=== PATIENT | male | born 1965 | race Caucasian/White ===

== ENCOUNTER 2024-01-05 14:34 | Outpatient (REF) | payer OTHER, SELFPAY ==
[2024-01-05 17:23] LABS: MANUAL DIFF FLAG NO
[2024-01-05 17:28] LABS: Basophils Absolute Auto 0.1 X10*3/uL (0.0-0.2); Basophils Percent Auto 1.2 % (0-2); Eosinophils Absolute Auto 0.1 X10*3/uL (0.0-0.4); Eosinophils Percent Auto 0.9 % (0-4); Hematocrit 48.6 % (42.0-52.0); Hemoglobin 16.5 g/dl (14.0-18.0); Imm Gran Pct Auto 1.1 % (0.0-0.4); Lymphocytes Absolute Auto 2.4 X10*3/uL (1.2-4.9); Lymphocytes Percent Auto 27.2 % (20-40); Mean Corpuscular Hemoglobin 29.9 pg (27.0-33.0); Mean Corpuscular Volume 88.2 fL (80.0-98.0); Mean Platelet Volume 8.1 fL (9.4-12.4); Monocytes Absolute Auto 0.7 X10*3/uL (0.1-1.2); Monocytes Percent Auto 7.5 % (2-11); Neutrophils Absolute Auto 5.5 x10*3/uL (2.0-8.3); Neutrophils Percent Auto 62.1 % (45-73); Platelet Count 509 X10*3/uL (160-400); Red Blood Count 5.51 X10*6/uL (4.60-5.80); Red Cell Distribution Width 14.4 % (11.0-16.0); White Blood Count 8.8 X10*3/uL (4.8-10.8)
[2024-01-05 17:46] LABS: Alanine Aminotransferase 29 U/L (0-40); Albumin Level 3.7 g/dL (3.5-5.0); Alkaline Phosphatase 116 U/L (39-117); Anion Gap 16 (12-20); Aspartate Amino Transferase 24 U/L (5-37); Bilirubin Total 0.4 mg/dL (0.0-1.0); Blood Urea Nitrogen 7 mg/dL (9-16); C Reactive Protein 5.43 mg/dL (< or = 0.50); Carbon Dioxide 26 mmol/L (22-29); Chloride 98 mmol/L (96-108); Cholesterol 139 mg/dL (<200); Estimated Glomerular Filt Rate > 60; Glucose Random 106 mg/dL (60-115); HDL Cholesterol 39 mg/dL (>40); LDL Cholesterol Calculated 83 mg/dL (<100); Potassium 4.5 mmol/L (3.3-5.1); Sodium 135 mmol/L (135-145); Total Protein 8.3 g/dL (6.5-8.0); Triglycerides 85 mg/dL (<150)
[2024-01-05 17:53] LABS: B Type Natriuretic Peptide 48 pg/mL (<100)
[2024-01-05 18:01] LABS: TSH reflex Free T4 3.14 uIU/mL (0.32-4.0)
== END 2024-01-05 14:35 | disposition home or self-care (01) ==
LOC: HO.CHCLDS 14:34
PROVIDERS: Visit Provider Family Medicine
DX: Z13.6 Encounter for screening for cardiovascular disorders (principal); I73.9 Peripheral vascular disease, unspecified; R06.02 Shortness of breath
CPT/HCPCS: 36415; 80053; 80061; 83880; 84443; 85025; 86140

== ENCOUNTER 2024-01-23 08:45 | Outpatient (AMB) | payer OTHER, SELFPAY ==
--- NOTE | 2024-01-23 09:06 | MHC.OFFVIS ---
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 States he can barely walk 50 ft before cramping. Pt states he can't use stairs without legs getting heavy and cramping. States he had arterial US testing at [facility] in June 2023. He had appt set up at [facility] in September but had change of insurance. 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 He had actually been set up with outside vascular surgeons and due to insurance issues was unable to follow-up. He has changed his primary care team and now presents to us for vascular evaluation. Upon discussion with him he does complain of some left lateral leg numbness. He is barely able to walk about 100 ft. He complains about pain left more so than right. 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 Upon further discussion with him he smokes about 2 packs per day. He also reports a prior MO back in 2018. He had most recently seen his primary care team which started him on an aspirin. He now presents for vascular evaluation. [facility] Medical History (Updated 01/23/24 @ 10:10 by Everton Sierra MD) Heart attack (~2018) Social History (Updated 01/23/24 @ 09:19 by RADHA Kingsley) Patient Tobacco Use Status: Current everyday Tobacco user Cigarette Packs Per Day: 2 Review of Systems Const All systems reviewed & are unremarkable except as noted in HPI and below Reports no additional complaints ENT Reports Normal hearing present Card Denies chest pain, Denies chest pain at rest, Denies chest pain with activity and Denies pedal edema Resp Denies cough GI Denies abdominal pain Musc Denies abnormal gait, Denies muscle cramps and Denies radiating pain into limb Skin/Breast Denies skin ulcer and Denies wounds Neuro Reports Normal hearing present and Denies abnormal gait Psych Reports no additional complaints Physical Exam Vital Signs: BMI result Body Mass Index 21.4 Const General: cooperative, healthy appearing and comfortable Orientation/consciousness: oriented to person, oriented to place and oriented to time HEENT Head: Yes normal to inspection Neck Neck: Yes normal visual inspection Carotids: no bruits Chest Chest palpation & inspection: normal inspection of the chest Resp Effort & Inspection: normal respiratory effort and able to speak in complete sentences Auscultation: clear to auscultation bilaterally, no crackles, no rales, no rhonchi and no wheezes Cardio Other: Right palpable DP, left DP signal Rate: regular rate Rhythm: regular rhythm Heart sounds: S1 normal heart sound present and S2 normal heart sound present Bruits: no carotid bruits GI Inspection: Yes normal to inspection Skin Wounds: no wounds Hair: normal Neuro General: oriented to person, oriented to place and oriented to time Cranial nerves: Yes CN's II-XII intact bilaterally and Yes Normal hearing present Cognition (Neuro): normal cognition Motor exam (neuro): 5/5 motor strength present throughout Extrem Other: venous exam: No significant superficial varicosities or spider telangiectasias, minimal edema General: No clubbing, No cyanosis and No edema Psych Appearance: grossly normal Mental Status: mental status grossly normal Speech and movement: Normal speech and movement present Assessment & Plan Assessment & Plan (1) PAD (peripheral artery disease): Code(s): I73.9 - Peripheral vascular disease, unspecified Category: Medical Plan: In short patient has severe activity limiting claudication. I did review the pathophysiology of peripheral vascular disease with the patient. In addition we did discuss routine conservative measures including a healthy diet and the importance of exercise and ambulation. We did discuss risk factor modification. He has been started on an aspirin already. I do recommend the addition of a high-dose statin with routine follow-up of LFTs and renal function. We will schedule him for noninvasive arterial testing as soon as possible.. Thank you for allowing us to participate in this patient's care. If there are any questions or concerns please do not hesitate to contact us. Orders: Orders US arterial duplex LE BI 1 Week I73.9 - Peripheral vascular disease, unspecified Coding Level of Care Code New Pt Level 4 (91771) Complex EM visit Add On G2211 Diagnoses PAD (peripheral artery disease) I73.9
[2024-01-23 09:20] VITALS: BMI 21.4
== END 2024-01-23 09:36 | disposition home or self-care (01) ==
LOC: HO.HVS 08:46
PROVIDERS: Visit Provider Surgery Vascular Surgery
DX: I73.9 Peripheral vascular disease, unspecified (principal)
CPT/HCPCS: 99204

== ENCOUNTER → 2024-01-23 08:45 | Outpatient (BNVA) | payer OTHER, SELFPAY | PROVIDERS: Visit Provider Surgery Vascular Surgery ==

== ENCOUNTER 2024-01-25 14:11 | Outpatient (REF) | payer OTHER, SELFPAY ==
--- NOTE | ~2024-01-25 | US_ITS ---
EXAMINATION: Noninvasive assessment of the bilateral lower extremities with ARTERIAL DUPLEX and ANKLE BRACHIAL INDICES (ABIs). US DOPPLER AORTA CLINICAL INFORMATION: Peripheral vascular disease TECHNIQUE: Duplex Doppler techniques with waveform analysis and measurement of velocities in the bilateral common femoral, profunda femoris, superficial femoral, popliteal and tibial arteries were performed. Additionally, ankle pulse volume recordings, ankle pressure measurements and ankle brachial indices were obtained of the lower extremity arterial system bilaterally. The study was performed only at rest. Ultrasound along with color Doppler imaging and spectral analysis was performed of the aorta and bilateral iliac arteries COMPARISON: None FINDINGS: AORTA: Aorta is normal in caliber with diffuse atherosclerotic wall calcifications. The measurements of the aorta in maximum AP dimensions respectively are as follows: Proximal: 2.4 cm. 90.3 cm/s, biphasic Mid: 2.2 cm. 81.9 cm/s, biphasic Distal: 1.7 cm. 25.1 cm/s, monophasic The measurements of the peak systolic velocities of the common iliac and external iliac arteries are as follows: Right Common Iliac Artery: 126 cm/s, triphasic. Right External Iliac Artery: 150 cm/s, triphasic Left Common Iliac Artery: 72 cm/s at the proximal segment with occlusion through the mid and distal segments . Left External Iliac Artery: Occluded with reconstituted flow in the distal most segment DIRECT DUPLEX DOPPLER FINDINGS: RIGHT LEG: Common femoral artery: 82.4 cm/s, phasicity: Biphasic. Mild calcified plaque Profunda femoris artery: 60.3 cm/s, phasicity: Biphasic Superficial femoral artery (proximal): 59.0 cm/s, phasicity: Biphasic Superficial femoral artery (mid): 64.0 cm/s, phasicity: Biphasic Superficial femoral artery (distal): 58.4 cm/s, phasicity: Triphasic Popliteal artery: 62.5 cm/s, phasicity: Triphasic Posterior tibial artery: 53.2 cm/s, phasicity: Triphasic Peroneal artery: 44.5 cm/s, phasicity: Monophasic Anterior tibial artery: 29.5 cm/s, phasicity: Biphasic Dorsalis pedis artery: 27.1 cm/s, phasicity:Monophasic LEFT LEG: Common femoral artery: 23.7 cm/s, phasicity: Monophasic Profunda femoris artery: 21.4 cm/s, phasicity: Monophasic Superficial femoral artery (proximal): 29.3 cm/s, phasicity: Monophasic Superficial femoral artery (mid): 16.2 cm/s, phasicity: Monophasic Superficial femoral artery (distal): 13.9 cm/s, phasicity: Monophasic Popliteal artery: 19.6 cm/s, phasicity: Monophasic Posterior tibial artery: 13.0 cm/s, phasicity: Monophasic Peroneal artery: 4.6 cm/s, phasicity: Monophasic Anterior tibial artery: 3.9 cm/s, phasicity: Monophasic Dorsalis pedis artery: 7.4 cm/s, phasicity: Monophasic ANKLE-BRACHIAL INDEX: Right: 0.9 Left: 0.32 ANKLE PRESSURES: Right: PT 141, DP 129 Left: PT 49, DP 51 ANKLE PVR WAVEFORMS: Right: Abnormal Left: Abnormal US/US abdominal aortic aneurysm IMPRESSION: 1. Aorta is normal in caliber with diffuse atherosclerotic wall calcifications. 2. Right lower extremity demonstrates no significant stenosis or occlusion. 3. Left lower extremity demonstrates occlusion of the left common iliac and external iliac arteries with reconstituted flow in the distal external iliac artery. There is severe peripheral vascular disease with monophasic waveforms throughout the left lower extremity. Electronically signed by: Rafael Jesus MD 01/26/2024 08:43 AM [facility] [place]
--- NOTE | ~2024-01-25 | US_ITS ---
EXAMINATION: Noninvasive assessment of the bilateral lower extremities with ARTERIAL DUPLEX and ANKLE BRACHIAL INDICES (ABIs). US DOPPLER AORTA CLINICAL INFORMATION: Peripheral vascular disease TECHNIQUE: Duplex Doppler techniques with waveform analysis and measurement of velocities in the bilateral common femoral, profunda femoris, superficial femoral, popliteal and tibial arteries were performed. Additionally, ankle pulse volume recordings, ankle pressure measurements and ankle brachial indices were obtained of the lower extremity arterial system bilaterally. The study was performed only at rest. Ultrasound along with color Doppler imaging and spectral analysis was performed of the aorta and bilateral iliac arteries COMPARISON: None FINDINGS: AORTA: Aorta is normal in caliber with diffuse atherosclerotic wall calcifications. The measurements of the aorta in maximum AP dimensions respectively are as follows: Proximal: 2.4 cm. 90.3 cm/s, biphasic Mid: 2.2 cm. 81.9 cm/s, biphasic Distal: 1.7 cm. 25.1 cm/s, monophasic The measurements of the peak systolic velocities of the common iliac and external iliac arteries are as follows: Right Common Iliac Artery: 126 cm/s, triphasic. Right External Iliac Artery: 150 cm/s, triphasic Left Common Iliac Artery: 72 cm/s at the proximal segment with occlusion through the mid and distal segments . Left External Iliac Artery: Occluded with reconstituted flow in the distal most segment DIRECT DUPLEX DOPPLER FINDINGS: RIGHT LEG: Common femoral artery: 82.4 cm/s, phasicity: Biphasic. Mild calcified plaque Profunda femoris artery: 60.3 cm/s, phasicity: Biphasic Superficial femoral artery (proximal): 59.0 cm/s, phasicity: Biphasic Superficial femoral artery (mid): 64.0 cm/s, phasicity: Biphasic Superficial femoral artery (distal): 58.4 cm/s, phasicity: Triphasic Popliteal artery: 62.5 cm/s, phasicity: Triphasic Posterior tibial artery: 53.2 cm/s, phasicity: Triphasic Peroneal artery: 44.5 cm/s, phasicity: Monophasic Anterior tibial artery: 29.5 cm/s, phasicity: Biphasic Dorsalis pedis artery: 27.1 cm/s, phasicity:Monophasic LEFT LEG: Common femoral artery: 23.7 cm/s, phasicity: Monophasic Profunda femoris artery: 21.4 cm/s, phasicity: Monophasic Superficial femoral artery (proximal): 29.3 cm/s, phasicity: Monophasic Superficial femoral artery (mid): 16.2 cm/s, phasicity: Monophasic Superficial femoral artery (distal): 13.9 cm/s, phasicity: Monophasic Popliteal artery: 19.6 cm/s, phasicity: Monophasic Posterior tibial artery: 13.0 cm/s, phasicity: Monophasic Peroneal artery: 4.6 cm/s, phasicity: Monophasic Anterior tibial artery: 3.9 cm/s, phasicity: Monophasic Dorsalis pedis artery: 7.4 cm/s, phasicity: Monophasic ANKLE-BRACHIAL INDEX: Right: 0.9 Left: 0.32 ANKLE PRESSURES: Right: PT 141, DP 129 Left: PT 49, DP 51 ANKLE PVR WAVEFORMS: Right: Abnormal Left: Abnormal US/US arterial duplex BI w/ STEPHENIE IMPRESSION: 1. Aorta is normal in caliber with diffuse atherosclerotic wall calcifications. 2. Right lower extremity demonstrates no significant stenosis or occlusion. 3. Left lower extremity demonstrates occlusion of the left common iliac and external iliac arteries with reconstituted flow in the distal external iliac artery. There is severe peripheral vascular disease with monophasic waveforms throughout the left lower extremity. Electronically signed by: Rafael Jesus MD 01/26/2024 08:43 AM [facility] [place]
== END 2024-01-25 14:12 | disposition home or self-care (01) ==
LOC: HO.US 14:11
PROVIDERS: PCP Family Medicine; Visit Provider Surgery Vascular Surgery
DX: I73.9 Peripheral vascular disease, unspecified (principal)
CPT/HCPCS: 76706; 93922; 93925

== ENCOUNTER 2024-01-30 10:04 | Outpatient (AMB) | payer OTHER, SELFPAY ==
[2024-01-30 10:33] VITALS: BMI 21.4
--- NOTE | 2024-01-30 10:33 | A.OFFVIS_ITS ---
Vital Signs 01/30/24 10:33 Height 5 ft 9 in Weight 145 lb BMI 21.4 Intake Visit Reasons: 1 wk follow up Arterial US 01/25/24 Intake Note: 1 wk follow up Arterial US 01/25/24 for Left LE worse than Right LE. Also states that the UE has some numbness. Accompanied by: Self / Same As Patient Allergies codeine Adverse Reaction (Mild, Verified 01/30/24 10:34) Vomiting bees Allergy (Intermediate, Uncoded 01/30/24 10:34) Anaphylaxis HPI HPI 1 wk follow up Arterial US 01/25/24: Details: Very pleasant 58-year-old gentleman presents for follow-up regarding noninvasive arterial testing. He has significant activity limiting claudication on the left lower extremity. He can barely walk 100 ft. He reports that the left leg seems to be this biggest source of issues. He now presents for follow-up with noninvasive testing. [facility] Medical History Heart attack (~2018) Social History Patient Tobacco Use Status: Current everyday Tobacco user Cigarette Packs Per Day: 2 Review of Systems Const All systems reviewed & are unremarkable except as noted in HPI and below Reports no additional complaints ENT Reports Normal hearing present Card Denies chest pain, Denies chest pain at rest, Denies chest pain with activity and Denies pedal edema Resp Denies cough GI Denies abdominal pain Musc Denies abnormal gait, Denies muscle cramps and Denies radiating pain into limb Skin/Breast Denies skin ulcer and Denies wounds Neuro Reports Normal hearing present and Denies abnormal gait Psych Reports no additional complaints Physical Exam Vital Signs: BMI result Body Mass Index 21.4 Const General: cooperative, healthy appearing and comfortable Orientation/consciousness: oriented to person, oriented to place and oriented to time HEENT Head: Yes normal to inspection Neck Neck: Yes normal visual inspection Carotids: no bruits Chest Chest palpation & inspection: normal inspection of the chest Resp Effort & Inspection: normal respiratory effort and able to speak in complete sentences Auscultation: clear to auscultation bilaterally, no crackles, no rales, no rhonchi and no wheezes Cardio Other: Bilateral DP signals Rate: regular rate Rhythm: regular rhythm Heart sounds: S1 normal heart sound present and S2 normal heart sound present Bruits: no carotid bruits Peripheral pulses: Peripheral pulses 2+ throughout GI Inspection: Yes normal to inspection Skin Wounds: no wounds Hair: normal Neuro General: oriented to person, oriented to place and oriented to time Cranial nerves: Yes CN's II-XII intact bilaterally and Yes Normal hearing present Cognition (Neuro): normal cognition Motor exam (neuro): 5/5 motor strength present throughout Extrem Other: venous exam: No significant superficial varicosities or spider telangiectasias, minimal edema General: No clubbing, No cyanosis and No edema Psych Appearance: grossly normal Mental Status: mental status grossly normal Speech and movement: Normal speech and movement present Results Reviewed Results Reviewed: Noninvasive testing dated 01/25/2024 demonstrates monophasic waveforms down the l eft leg with an STEPHENIE of 0.32. Assessment & Plan Assessment & Plan (1) PAD (peripheral artery disease): Code(s): I73.9 - Peripheral vascular disease, unspecified Category: Medical Plan: Patient notes leg pain when walking distances. I have discussed the pathophysiology of peripheral vascular disease with the patient. I have also discussed risk factor modification. I have reviewed the patient's arterial testing which reveals left leg STEPHENIE of 0.32. the patient would benefit from a left leg endovascular peripheral angiogram with possible angioplasty, stent, and/or atherectomy. This has been discussed in detail with the patient along with risks, benefits, and complications. This includes but is not limited to bleeding, infection, heart attack, need for emergent surgical repair, limb ischemia, blood vessel damage, bleeding, puncture, kidney injury, bruising, allergic reaction, and skin reaction. The patient demonstrates a clear understanding. We will schedule for the next appropriate time. Thank you for allowing us to assist in this patient's care. Coding Level of Care Code Est Pt Level 4 (19680) Complex EM visit Add On G2211 Diagnoses PAD (peripheral artery disease) I73.9
== END 2024-01-30 11:01 | disposition home or self-care (01) ==
PROVIDERS: Visit Provider Surgery Vascular Surgery
DX: I73.9 Peripheral vascular disease, unspecified (principal)
CPT/HCPCS: 99214

== ENCOUNTER → 2024-01-30 10:04 | Outpatient (BNVA) | payer OTHER, SELFPAY | PROVIDERS: Visit Provider Surgery Vascular Surgery ==

== ENCOUNTER 2024-02-07 07:21 | Day surgery (SDC) | payer OTHER, SELFPAY ==
[2024-02-07] VITALS (18 sets, daily range): BP systolic 116–147; BP diastolic 73–98; PULSE 76–106; RESP 16–20; TEMP 36.1; O2SAT 96–100; BMI 20.5
[2024-02-07] MEDS: 0.9 % Sodium Chloride 1,000 ML 100 ML IVCONT (07:57)
[2024-02-07 08:06] LABS: MANUAL DIFF FLAG NO
[2024-02-07 08:15] LABS: Basophils Absolute Auto 0.1 X10*3/uL (0.0-0.2); Basophils Percent Auto 0.8 % (0-2); Eosinophils Absolute Auto 0.1 X10*3/uL (0.0-0.4); Eosinophils Percent Auto 0.9 % (0-4); Hematocrit 48.5 % (42.0-52.0); Hemoglobin 16.3 g/dl (14.0-18.0); Imm Gran Abs Auto 0.08 X10*3/uL (0.00-0.03); Lymphocytes Absolute Auto 1.9 X10*3/uL (1.2-4.9); Mean Corpuscular HGB Conc 33.6 g/dl (31.0-36.0); Mean Corpuscular Hemoglobin 29.4 pg (27.0-33.0); Mean Corpuscular Volume 87.4 fL (80.0-98.0); Mean Platelet Volume 7.9 fL (9.4-12.4); Monocytes Absolute Auto 0.8 X10*3/uL (0.1-1.2); Monocytes Percent Auto 9.8 % (2-11); Neutrophils Absolute Auto 4.8 x10*3/uL (2.0-8.3); Neutrophils Percent Auto 62.5 % (45-73); Platelet Count 363 X10*3/uL (160-400); Red Blood Count 5.55 X10*6/uL (4.60-5.80); Red Cell Distribution Width 13.8 % (11.0-16.0); White Blood Count 7.7 X10*3/uL (4.8-10.8)
[2024-02-07 08:22] LABS: Blood Urea Nitrogen 8 mg/dL (9-16); Creatinine Clr Calc Pharmacy 93.5; Estimated Glomerular Filt Rate > 60
[2024-02-07] MEDS: Midazolam HCl/PF 2 MG/2 ML VIAL 0.5 MG IVPUSH (09:28)
[2024-02-07] MEDS: fentaNYL citrate/PF 100 MCG/2 ML VIAL 25 MCG IVPUSH (09:28)
--- NOTE | 2024-02-07 10:09 | W.PM.OPN ---
Operative Note Operative Note Date of Service: 02/07/24 Narrative: Angiogram report from [facility] Preoperative diagnosis: Atherosclerosis of left lower extremity with rest pain Postoperative diagnosis: Same Procedure: 1. Ultrasound-guided right common femoral access 2. Aortogram with left lower extremity runoff Surgeon:Everton Sierra M.D., FACS, RPVI Cashier Wrapper:None Anesthesia: Local with moderate conscious sedation. Total intraservice moderate sedation time was 16 minutes. I monitored the patient's level of consciousness and physiologic status continuously throughout the procedure. Specimens:none Drains:none Estimated blood loss: Less than 10 ml Implant: None Indications: Pleasant 58-year-old smoker presents for evaluation with left lower extremity severe claudication almost rest pain equivalent. He now presents for endovascular intervention The patient has signed the informed consent after reviewing risks, complications, benefits, and alternatives previously discussed with the patient. The patient was given the opportunity to ask any additional questions or voice any concerns. All questions were answered to the patient's satisfaction. Procedure in detail: Patient was brought to the angiography suite prior to which a time-out was called for patient identification and site verification. Bilateral groins were prepped and draped in the standard surgical fashion. Under ultrasound guidance right common femoral was punctured with micro puncture needle and wire. Subsequently a precision 5 [place] sheath was then placed. [employer] wire was advanced to the level of the aorta. 5 [place] Flush catheter was brought up and parked at the level of the renal arteries. Aortogram was then undertaken. Catheter was brought down to the level of the iliac bifurcation. Iliacs were subsequently imaged. We had placed the catheter at the iliac bifurcation. There was a complete occlusion of the left lower extremity in the iliacs so we were unable to traverse the contra side. We did do left lower extremity runoff through the iliac bifurcation. At this time we were unable to intervene. Catheter was removed. A 5 [place] CELT closure device was placed. Adequate hemostasis was achieved. Patient returned to recovery with stable vitals. Interpretation of films: 1. Ultrasound demonstrates appropriate femoral access site. Vessel was patent with minimal stenosis. Needle entry was visualized. Image of ultrasound was saved. 2. Aortogram demonstrates appropriate caliber aorta. Moderate calcification throughout the entire aorta. There was a duplicate right renal left renal appeared within normal limits 3. Iliac images demonstrate high-grade stenosis on the right common iliac it was calcified from the common iliac down to the external iliac. Left common iliac and external iliac were totally occluded. 4. Left Leg Common femoral artery: Unable to clearly visualize but I do believe it reconstitutes there Profundus Femoris: Not seen clearly but there was evidence profundus Superficial femoral artery: Was visualized all the way down into the thigh. There was a question of some disease at Trung's canal. Popliteal artery (p1,p2,p3): Patent Anterior tibial artery: Unable to visualize Peroneal artery: Unable to visualize Posterior tibial artery: Unable to visualize Dorsalis pedis/plantar arch: unseen Conclusion: 1. Successful diagnostic angiogram. Patient will require open aortobifemoral bypass. 2. Anticoagulation status: No change This note is constructed using voice recognition software. While every effort has been made to ensure accuracy, electrician bus errors may have been included. Thank you for allowing me to participate in the care of your patient. Yours sincerely, Everton Sierra MD, FACS, R.P.V.I.
== END 2024-02-07 12:01 | disposition home or self-care (01) ==
PROVIDERS: PCP Family Medicine; Visit Provider Surgery Vascular Surgery
PROC: (CPT 36247; principal; 2024-02-07 09:00)
DX: I70.222 Atherosclerosis of native arteries of extremities with rest pain, left leg (principal); R20.0 Anesthesia of skin; R26.2 Difficulty in walking, not elsewhere classified; I25.10 Atherosclerotic heart disease of native coronary artery without angina pectoris; I25.2 Old myocardial infarction; Z88.5 Allergy status to narcotic agent; F17.210 Nicotine dependence, cigarettes, uncomplicated; Z98.890 Other specified postprocedural states
CPT/HCPCS: 36247; 36415; 75630; 76937; 82565; 84520; 85025; 99152; C1760; C1769; C1887; C1894; J1644; J2250; J2310; J3010; Q9967

== ENCOUNTER → 2024-02-07 07:21 | Outpatient (BNV) | payer OTHER, SELFPAY | PROVIDERS: PCP Family Medicine; Visit Provider Surgery Vascular Surgery | DX: I70.222 Atherosclerosis of native arteries of extremities with rest pain, left leg (principal) | CPT/HCPCS: 36245; 75625; 75710; 76937 ==

== ENCOUNTER 2024-02-14 13:38 | Outpatient (REF) | payer OTHER, SELFPAY ==
--- NOTE | ~2024-02-14 | CT_ITS ---
EXAMINATION: CT ANGIOGRAPHY ABDOMEN, PELVIS AND LOWER EXTREMITY RUNOFF WITH CONTRAST CLINICAL INFORMATION: I73.9 - Peripheral vascular disease, unspecified COMPARISON: None TECHNIQUE: Initial noncontrast localizing senior engineering technician images were obtained. Timing boluses at the level of the celiac and popliteal arteries were calculated. Subsequently, arterial phase multidetector volumetric imaging was performed through the abdomen, pelvis and bilateral lower extremities following the administration of 100 mL Omnipaque 350 intravenous contrast. No contrast reaction reported Sagittal and coronal reformatted images were obtained on the technologist workstation. After extensive post-processing on a dedicated 3-D workstation, 3-D reformatted images were uploaded to PACS and reviewed as well. This CT examination was performed using dose optimization techniques as appropriate, variously including the following: *Automated exposure control *Adjustment of mA and/or kV according to patient size (this includes techniques or standardized protocols for targeted exams where dose is matched to indication/reason for exam; i.e. extremities or head) *Use of iterative reconstruction technique DLP: 607 mGy-cm FINDINGS: VASCULAR: Abdominal Aorta: Extensive calcified and noncalcified plaque in the aorta and branches. Mild aneurysmal dilation of the infrarenal abdominal aorta measures 2.3 x 2.2 cm in maximal diameter. For reference the infrarenal abdominal aorta proximal to this measures 2.0 x 1.8 cm. No dissection of the abdominal aorta. No penetrating atheromatous ulcer. Mesenteric Arteries: Mild stenosis at the origin of the celiac artery and superior mesenteric artery, which otherwise patent. Inferior mesenteric artery is occluded at the origin with retrograde flow via mesenteric collaterals. Renal Artery: Single left and 2 right renal arteries. Moderate to severe stenosis at the origin of the left renal artery. The 2 right renal arteries are patent without significant stenosis. RIGHT Lower Extremity: Right Common Iliac Artery: Patent. Extensive calcified and noncalcified plaque with focal severe stenosis in the distal right common iliac artery. Right External Iliac Artery: Patent. Severe atherosclerosis resulting in diffuse mild stenosis in the proximal segment of the right external iliac artery. Right Internal Iliac Artery: Occluded. Common Femoral Artery: Patent. Severe atherosclerosis resulting in mild stenosis. Superficial Femoral Artery: Patent. Mild atherosclerosis resulting in no significant stenosis. Profunda Femoris: Patent. Popliteal Artery: Patent. Mild atherosclerosis resulting in no significant stenosis. Tibioperoneal Trunk: Patent. Anterior Tibial Artery: Patent. Peroneal Artery: Patent. Posterior Tibial Artery: Patent. LEFT lower extremity: Left Common Iliac Artery: Occluded. Left External Iliac Artery: Occluded with reconstitution of the distalmost left external iliac artery via retrograde flow from the inferior epigastric artery. Left Internal Iliac Artery: Occluded with distal reconstitution. Common Femoral Artery: Patent. Severe atherosclerosis resulting in mild stenosis. Superficial Femoral Artery: Patent. Mild atherosclerosis resulting in no significant stenosis. Profunda Femoris: Patent. Popliteal Artery: Patent. Moderate atherosclerosis resulting in no significant stenosis. Tibioperoneal Trunk: Patent. Anterior Tibial Artery: Patent. Peroneal Artery: Patent. Posterior Tibial Artery: Patent. NONVASCULAR: Lung Bases: The visualized lung bases are clear. Liver: Homogeneous in attenuation. Normal in size. No focal lesion. Gallbladder: No gallbladder wall thickening, pericholecystic fluid, or pericholecystic stranding. Biliary System: No intrahepatic or extrahepatic biliary ductal dilation. Pancreas: Homogeneous in attenuation. No pancreatic ductal dilatation. No focal lesion. Spleen: Normal in size. Adrenal Glands: No focal nodule. Genitourinary: Bilateral kidneys demonstrate symmetric enhancement. No perinephric fluid collection. No renal calculi. No hydroureteronephrosis. GI: Sigmoid colon diverticulosis without secondary signs of acute diverticulitis. The visualized alimentary tract is normal in course. No bowel wall thickening. No dilated loops of bowel to suggest obstruction. Appendix: The appendix is seen in its entirety and is unremarkable. Peritoneum: No pneumoperitoneum. No ascites. No intra-abdominal fluid collection. Pelvic Structures: Circumferential bladder wall thickening, which may be secondary to chronic bladder outlet obstruction in the setting of prostatomegaly. Enlarged prostate measures 6.0 cm in transverse. Lymph Nodes: No pathologically enlarged abdominal or pelvic lymph nodes. Soft Tissues/Musculoskeletal: Severe arthritis of the right hip. Moderate arthritis of the right SI joint. There is no acute fracture or destructive osseous lesion. CT/CT angio abd aorta runoff IMPRESSION: VASCULAR: Abdomen/Pelvis: 1. Mild aneurysmal dilation of the infrarenal abdominal aorta measures 2.3 cm in maximal diameter. 2. Severe calcified and noncalcified atherosclerosis of the aorta and branches. 3. Moderate to severe stenosis at the origin of the left renal artery. Right lower extremity: 1. Focal severe stenosis in the distal right common iliac artery. 2. Diffuse mild stenosis of the right external iliac artery. 3. Occluded right internal iliac artery. 4. Three-vessel runoff to the right foot. Left lower extremity: 1. Occluded left common iliac artery and left external iliac artery with reconstitution of the distalmost segment of the left external iliac artery via retrograde flow from the inferior epigastric artery. 2. Occluded left internal iliac artery with distal reconstitution. 3. Three-vessel runoff to the left foot. NONVASCULAR: 1. Sigmoid colon diverticulosis without secondary signs of acute diverticulitis. 2. Circumferential bladder wall thickening, which may be secondary to chronic bladder outlet obstruction in the setting of prostatomegaly. 3. Severe arthritis of the right hip, moderate arthritis of the right SI joint. Fleischner guidelines were followed. Disclaimer: Assessment of the lower extremity arterial vasculature is limited in the setting of artifact created from calcified atherosclerotic plaque and suboptimal contrast/spacial resolution of CT to distinguish calcified plaque from luminal contrast in small vessels. Given that this could lead to underestimation of stenosis (particularly infrapopliteal vessels), assessment with traditional angiography is recommended in the appropriate clinical setting. Electronically signed by: Charley Camacho MD 02/15/2024 01:09 PM [facility]
[2024-02-14] MEDS: iohexoL 350 MG/ML 100 ML INFUS..BTL IV (14:49)
== END 2024-02-14 13:39 | disposition home or self-care (01) ==
LOC: HO.CT 13:38
PROVIDERS: PCP Family Medicine; Visit Provider Surgery Vascular Surgery
DX: I73.9 Peripheral vascular disease, unspecified (principal)
CPT/HCPCS: 75635; Q9967

== ENCOUNTER 2024-02-20 09:11 | Outpatient (AMB) | payer OTHER, SELFPAY ==
--- NOTE | 2024-02-20 09:24 | A.OFFVIS_ITS ---
Intake Visit Reasons: 2 week follow up angio 02/06 & CT runoff 02/13 Intake Note: follow up Left LE Angio 02/07/24 and CTA Abd/pelvis 02/14/24. Pt states that pain has changed since diagnostic angio, states that pain changes depending on activity. Also states finger tips are worsening as far as numbness. Left LE is worse than Right LE. Pt states it feels like he is dragging his leg due to heaviness. Accompanied by: Self / Same As Patient Allergies codeine Adverse Reaction (Mild, Verified 02/20/24 09:28) Vomiting bees Allergy (Intermediate, Uncoded 02/20/24 09:28) Anaphylaxis HPI HPI 2 week follow up angio 02/06 & CT runoff 02/13: Details: Pleasant 58-year-old gentleman presents for follow-up regarding peripheral vascular disease. He had undergone diagnostic angiogram on 02/07/2024. He has subsequently undergone CT angiogram. He now presents for routine follow-up. He complains of severe left lower extremity pain it is almost a rest pain equiv alent. When he is sitting for any period of time he notices numbness and severe discoloration of his toes. Now presents for routine follow-up. Of note he has had a visit with his primary care doctor and has been on an aspirin and statin. He now presents for routine follow-up. Of note he has decreased his smoking down to 1 pack per day. [facility] Medical History Heart attack (~2018) Surgical History History of surgery on lower extremity H/O tooth extraction Social History (Updated 02/20/24 @ 09:31 by RADHA Kingsley) Patient Tobacco Use Status: Current everyday Tobacco user Tobacco use type: Cigarette Cigarette Packs Per Day: 1 Cigarettes Per Day: 20 Review of Systems Const All systems reviewed & are unremarkable except as noted in HPI and below Reports no additional complaints ENT Reports Normal hearing present Card Denies chest pain, Denies chest pain at rest, Denies chest pain with activity and Denies pedal edema Resp Denies cough GI Denies abdominal pain Musc Denies abnormal gait, Denies muscle cramps and Denies radiating pain into limb Skin/Breast Denies skin ulcer and Denies wounds Neuro Reports Normal hearing present and Denies abnormal gait Psych Reports no additional complaints Physical Exam Const General: cooperative, healthy appearing and comfortable Orientation/consciousness: oriented to person, oriented to place and oriented to time HEENT Head: Yes normal to inspection Neck Neck: Yes normal visual inspection Carotids: no bruits Chest Chest palpation & inspection: normal inspection of the chest Resp Effort & Inspection: normal respiratory effort and able to speak in complete sentences Auscultation: clear to auscultation bilaterally, no crackles, no rales, no rhonchi and no wheezes Cardio Other: Bilateral DP signals Rate: regular rate Rhythm: regular rhythm Heart sounds: S1 normal heart sound present and S2 normal heart sound present Bruits: no carotid bruits Peripheral pulses: Peripheral pulses 2+ throughout GI Inspection: Yes normal to inspection Skin Wounds: no wounds Hair: normal Neuro General: oriented to person, oriented to place and oriented to time Cranial nerves: Yes CN's II-XII intact bilaterally and Yes Normal hearing present Cognition (Neuro): normal cognition Motor exam (neuro): 5/5 motor strength present throughout Extrem Other: venous exam: No significant superficial varicosities or spider telangiectasias, minimal edema General: No clubbing, No cyanosis and No edema Psych Appearance: grossly normal Mental Status: mental status grossly normal Speech and movement: Normal speech and movement present Results Reviewed Results Reviewed: CT scan dated 02/14/2024 demonstrates severe calcified aorta. Focal stenosis of right common iliac artery. Occluded left common iliac external iliac artery. Assessment & Plan Assessment & Plan (1) Aortoiliac occlusive disease: Code(s): I74.09 - Other arterial embolism and thrombosis of abdominal aorta Category: Medical Plan: In short patient has severe aortoiliac occlusive disease. At the current time he nearly has a rest pain equivalent of that left lower extremity. Due to his age and overall status I do think he will be best served with open surgery. The patient will require open aortobifemoral bypass. Risks benefits complications were discussed in detail with the patient including but not limited to bleeding infection limb ischemia bowel ischemia and . He demonstrated a clear understanding and would like to move forward. Prior to surgery he will require cardiac risk stratification along with pulmonary risk stratification. Thank you for allowing us to assist in his care. Coding Level of Care Code Est Pt Level 4 (18062) Complex EM visit Add On G2211 Diagnoses Aortoiliac occlusive disease I74.09
== END 2024-02-20 10:12 | disposition home or self-care (01) ==
PROVIDERS: PCP Family Medicine; Visit Provider Surgery Vascular Surgery
DX: I74.09 Other arterial embolism and thrombosis of abdominal aorta (principal)
CPT/HCPCS: 99214

== ENCOUNTER 2024-02-27 09:14 | Outpatient (AMB) | payer OTHER, SELFPAY ==
--- NOTE | 2024-02-27 08:49 | A.OFFVIS_ITS ---
Vital Signs 02/27/24 09:21 Height 5 ft 9 in Weight 149 lb 4 oz BMI 22.0 BP 118/66 Blood Pressure Location Lt brachial Position Sitting Pulse 80 Pulse Source Pulse Oximeter Pulse Oximetry (%) 98 Oxygen Delivery Method Room Air Intake Visit Reasons: PULM CLEARANCE- Aorto Bifemoral bypass , Dr. Sierra Allergies codeine Adverse Reaction (Mild, Verified 02/27/24 09:24) Vomiting bees Allergy (Intermediate, Uncoded 02/27/24 09:24) Anaphylaxis HPI HPI PULM CLEARANCE- Aorto Bifemoral bypass , Dr. Sierra: Details: Jabier is a pleasant 58 year old male, current 1 ppd smoker, with pyh with underlying PAD and MT 2018. He was referred by Dr. Sierra for perioperative pulmonary evaluation for proposed open aortobifemoral bypass surgery. At baseline he is suboptimally controlled on Spiriva and albuterol MDI. He continues to report dyspnea on exertion, wheezing and productive cough with clear sputum. He denies any hospitalizations related to respiratory distress in the last year. He denies any prior need for supplemental oxygen. He denies any h/o asthma. He reports mild seasonal allergies. He denies any pertinent family history. Patient reports smoking since a teenager, average 1 ppd however at times has smoked 2-3 ppd. Not ready to quit at this time. Patient with h/o MT and has upcoming cardiology evaluation later this month. [facility] Medical History Heart attack (~2018) Surgical History History of surgery on lower extremity H/O tooth extraction Social History Patient Tobacco Use Status: Current everyday Tobacco user Tobacco use type: Cigarette Cigarette Packs Per Day: 1 Cigarettes Per Day: 20 Review of Systems Const Denies chills, Denies excessive sweating, Denies fever(s), Denies headache(s) and Denies night sweats Eyes Denies dry eyes, Denies irritation and Denies itchy eyes ENT Reports Normal hearing present, Denies headache(s), Denies nasal congestion, Denies nasal discharge, Denies post nasal drip and Denies sore throat Card Denies chest pain, Denies chest pain at rest, Denies chest pain with activity, Denies claudication, Denies leg edema, Denies orthopnea and Denies paroxysmal nocturnal dyspnea Resp Denies chest congestion, Denies excessive phlegm production, Denies pain on inspiration, Denies pain with cough and Denies stridor Musc Denies myalgias Neuro Reports Normal hearing present and Denies headache(s) Endo Denies excessive sweating Mauro/Lymph Denies lymphadenopathy Aller/Immun Denies itchy eyes and Denies seasonal rhinorrhea Physical Exam Vital Signs: Last Vital Signs Pulse 80 02/27/24 09:21 BP 118/66 02/27/24 09:21 Pulse Ox 98 02/27/24 09:21 Oxygen Delivery Method Room Air 02/27/24 09:21 BMI result Body Mass Index 22.0 Const General: cooperative, healthy appearing, comfortable, no acute distress, well developed and alert Orientation/consciousness: patient oriented x3 Limitations: no limitations HEENT Head: Yes normal to inspection, Yes normocephalic and Yes atraumatic Ears: hearing grossly normal bilaterally and external ears normal Eyes General: appearance normal, both eyes and all related structures Eyelids: Yes eyelids normal Sclerae: sclerae normal EOM: EOMs intact bilaterally Neck Neck: Yes normal visual inspection and Yes no lymphadenopathy Lymphatic: no lymphadenopathy noted Chest Chest palpation & inspection: normal inspection of the chest Resp Effort & Inspection: normal respiratory effort, able to speak in complete sentences, no audible wheezes, no cough, no stridor, not tachypneic, no tripod positioning and no use of accessory muscles Auscultation: diminished lung sounds Cardio Jugular venous distension: no JVD Rate: regular rate Rhythm: regular rhythm Skin Other: warm, dry General skin exam: no rashes or lesions noted Neuro General: patient oriented x3 Cranial nerves: Yes Normal hearing present Cognition (Neuro): normal cognition Gait exam (Neuro): Normal gait present Extrem General: Yes normal to inspection, Yes capillary refill normal, Yes no clubbing, cyanosis or edema and Yes no pedal edema Psych Appearance: grossly normal and well kempt Speech and movement: Normal speech and movement present and Clear speech present Affect: normal affect Attitude: cooperative Thought process: Normal thought process present Thought content: Normal thought content present Insight: Good insight present (Psych) Judgement: Good judgement present (Psych) Assessment & Plan Assessment & Plan (1) COPD (chronic obstructive pulmonary disease): Code(s): J44.9 - Chronic obstructive pulmonary disease, unspecified Category: Medical (2) Nicotine dependence, cigarettes, uncomplicated: Code(s): F17.210 - Nicotine dependence, cigarettes, uncomplicated Category: Medical (3) Encounter for preoperative pulmonary examination: Code(s): Z01.811 - Encounter for preprocedural respiratory examination Category: Medical Plan Jabier presents for preoperative pulmonary evaluation for upcoming vascular surgery with Dr. Sierra in March. Patient notes having PFT at [facility] recently, will obtain report to assess severity of COPD. CXR order entered by PCP however not performed. Patient will obtain Monday prior to cardiology appt. Will add Breo and advised to continue Spiriva, as he continues to report respiratory symptoms. He denies any recent COPD exacerbations. He denies prior need for supplemental oxygen. Smoking cessation discussed, however patient not ready to quit at this time. Discussed importance of CT chest as patient has a significant smoking history which can be performed after surgery, unless abnormal CXR. Will further risk stratify once CXR resulted and obtain PFT. All questions were answered and patient is in agreement of plan. Will follow up in 2-3 months or sooner if needed. Orders: Orders PFT pulmonary function test Today J44.9 - Chronic obstructive pulmonary disease, unspecified, Z01.811 - Encounter for preprocedural respiratory examination CT chest wo IV con Today F1.210 - Nicotine dependence, cigarettes, uncomplicated, J44.9 - Chronic obstructive pulmonary disease, unspecified XR chest 2V Today R06.00 - Dyspnea, unspecified Medications: New fluticasone furoate-vilanterol 100-25 mcg/dose (Breo Ellipta) 1 inh inhalation DAILY 60 ea 3RF Coding Level of Care Code New Pt Level 4 (99978) Diagnoses COPD (chronic obstructive pulmonary disease) J44.9 Nicotine dependence, cigarettes, uncomplicated Encounter for preoperative pulmonary examination Z01.811
[2024-02-27 09:21] VITALS: BP 118/66; PULSE 80; O2SAT 98; BMI 22.0
--- OUTSIDE RECORDS SUMMARY | 2024-02-28 19:23 | XMS_ITS | Patient Health Record ---
Author Organization [facility] Address [address], [place] [id number] Care Team Providers Care Line Puller Name Role Phone Alba Perry Unavailable [phone] Reason For Referral No Information Plan Of Treatment No Information Insurance Providers Payer Name Payer Address Payer Phone Subscriber Number Group Number Insured Name Patient Relationship to Insured Coverage Start Date Coverage End Date [facility] [employer] Healthy [id number] [place] [phone] [id number] Jabier Angel Self - patient is the insured 9
== END 2024-02-27 10:12 | disposition home or self-care (01) ==
PROVIDERS: PCP Family Medicine; Visit Provider Nurse Practitioner Family
DX: J44.9 Chronic obstructive pulmonary disease, unspecified (principal); F17.210 Nicotine dependence, cigarettes, uncomplicated; Z01.811 Encounter for preprocedural respiratory examination
CPT/HCPCS: 99204

== ENCOUNTER 2024-03-04 12:49 | Outpatient (REF) | payer OTHER, SELFPAY ==
--- NOTE | ~2024-03-04 | XR_ITS ---
EXAMINATION: XR CHEST CLINICAL INFORMATION: R06.00 - Dyspnea, unspecified COMPARISON: None available. TECHNIQUE: 2 views of the chest were obtained. FINDINGS: There is no gross pneumothorax. Lungs are well-inflated. Heart size is normal. Minimal degenerative changes thoracic spine. No significant pleural effusion. Multiple small pulmonary nodules predominantly in the bilateral upper lungs, largest right upper lobe measures 6 mm. While some may represent calcified granulomata, CT scan of the chest recommended for further evaluation. XR/XR chest 2V IMPRESSION: Multiple small pulmonary nodules predominantly in the bilateral upper lungs, largest right upper lobe measures 6 mm. While some may represent calcified granulomata, CT scan of the chest recommended for further evaluation. This study was presented today to March 05, 2024 for interpretation. Stat results provided at this time as requested by referring provider. Electronically signed by: Heather Velazco MD 03/05/2024 08:31 AM [facility]
--- OUTSIDE RECORDS SUMMARY | 2024-03-04 12:54 | XMS_ITS | Patient Health Record ---
Author Organization [facility] Address [address], [place] [id number] Care Team Providers Care Bias Cutting Machine Operator Vertical Name Role Phone Alba Perry Unavailable [phone] Reason For Referral No Information Plan Of Treatment No Information Insurance Providers Payer Name Payer Address Payer Phone Subscriber Number Group Number Insured Name Patient Relationship to Insured Coverage Start Date Coverage End Date [facility] [employer] Healthy [address] [place] [phone] [id number] Jabier Angel Self - patient is the insured 9
== END 2024-03-04 12:50 | disposition home or self-care (01) ==
LOC: HO.XRAY 12:49
PROVIDERS: PCP Family Medicine; Referring Provider Surgery Vascular Surgery; Visit Provider Nurse Practitioner Family
DX: R06.00 Dyspnea, unspecified (principal)
CPT/HCPCS: 71046; 93005

== ENCOUNTER 2024-03-04 13:08 | Outpatient (AMB) | payer OTHER, SELFPAY ==
--- NOTE | 2024-03-04 13:50 | A.OFFVIS_ITS ---
Vital Signs 03/04/24 13:58 Height 5 ft 9 in Weight 147 lb 11.355 oz BMI 21.8 BP 120/60 Blood Pressure Location Lt brachial Position Sitting Pulse 75 Pulse Source Monitor Intake Visit Reasons: [employer]/ Mariela/ Allergies codeine Adverse Reaction (Mild, Verified 02/27/24 09:24) Vomiting bees Allergy (Intermediate, Uncoded 02/27/24 09:24) Anaphylaxis Medication List - Last Reconciled 03/04/24 by Jamaal Britt MD albuterol sulfate 90 mcg/actuation inhalation aspirin 1 tab PO DAILY fluticasone furoate-vilanterol 100-25 mcg/dose (Breo Ellipta) 1 inh inhalation DAILY meloxicam 15 mg PO DAILY rosuvastatin 20 mg PO DAILY tiotropium bromide (Spiriva with HandiHaler) 1 cap inhalation DAILY tiotropium bromide 2.5 mcg/actuation (Spiriva Respimat) 2 puffs inhalation DAILY HPI Comments Details: Jabier is here for consultation regarding preoperative cardiac risk stratification for vascular surgery. From notes, it seems he has severe aortoiliac occlusive disease. Plan for aorta bifemoral bypass noted. Chronic smoker and still smokes. Otherwise, from the cardiac standpoint, known documented coronary disease/myocardial infarction. Within limits of his a ctivity, no clear-cut angina. However, somewhat limited because of claudication symptoms. Shortness of breath likely related to COPD/smoking. FORMERLY [facility] Medical History Heart attack (~2018) Surgical History History of surgery on lower extremity H/O tooth extraction Family History (Updated 03/04/24 @ 14:12 by Chanel Delacruz) Mother History of quadruple bypass Father Aneurysm Social History (Updated 03/04/24 @ 14:13 by Chanel Delacruz) Alcohol intake: current Alcohol intake frequency: a few times a week Alcohol type: beer Patient Tobacco Use Status: Current everyday Tobacco user Tobacco use type: Cigarette Cigarette Packs Per Day: 1 Cigarettes Per Day: 20 Review of Systems Const Denies weakness ENT Denies dizziness Card Denies chest pain, Denies chest pain with activity, Denies syncope, Denies rapid heart rate, Denies pedal edema, Denies edema, Denies leg edema, Denies lightheadedness, Denies palpitations, Reports dyspnea, Denies dyspnea on exertion and Denies orthopnea Resp Denies cough, Reports dyspnea and Denies dyspnea on exertion GI Denies hematochezia and Denies change in stool character Musc Denies abnormal gait, Denies muscle cramps, Denies muscle weakness, Denies numbness, Denies radiating pain into limb and Denies tingling Neuro Denies abnormal gait, Denies dizziness, Denies syncope, Denies numbness, Denies tingling and Denies weakness Endo Denies palpitations Physical Exam Vital Signs: Last Vital Signs Pulse 75 03/04/24 13:58 BP 120/60 03/04/24 13:58 BMI result Body Mass Index 21.8 Const General: comfortable and no acute distress Orientation/consciousness: patient oriented x3 HEENT Other: Unremarkable Head: Yes normal to inspection Neck Neck: Yes normal visual inspection Chest Chest palpation & inspection: normal inspection of the chest Resp Auscultation: clear to auscultation bilaterally Cardio Palpation: normal PMI Heart sounds: S1 normal heart sound present, S2 normal heart sound present, no gallops, Murmur heart sound present systolic I/ and at the right sternal border and no rubs GI Palpation (GI): Soft to palpation Back/Spine/Pelvis Other: unremarkable Skin General skin exam: no rashes or lesions noted Neuro General: patient oriented x3 Extrem General: Yes normal to inspection Psych Mental Status: mental status grossly normal Office Procedures EKG Details: EKG with underlying sinus rhythm at 75/Min; no significant ST-T changes; [place] [address][id number], Complete Assessment & Plan Assessment & Plan (1) Preoperative cardiovascular examination: Code(s): Z01.810 - Encounter for preprocedural cardiovascular examination Category: Medical (2) PAD (peripheral artery disease): Code(s): I73.9 - Peripheral vascular disease, unspecified Category: Medical (3) Aortoiliac occlusive disease: Code(s): I74.09 - Other arterial embolism and thrombosis of abdominal aorta Category: Medical (4) Nicotine dependence, cigarettes, uncomplicated: Code(s): F17.210 - Nicotine dependence, cigarettes, uncomplicated Category: Medical Plan Cardiac BNP 48, within normal limits. Overall, severe vascular disease, chronic smoking, preoperative evaluation for aortobifemoral bypass. Recommend getting an echocardiogram, pharmacological myocardial perfusion imaging study. Highly unlikely to exercise on the treadmill due to claudication pains. We can review the testing and make an addendum. Strongly advised to stop smoking. Orders: Orders CA echo transthoracic complete Today I25.10 - Atherosclerotic heart disease of [place] coronary artery without angina pectoris, Z01.810 - Encounter for preprocedural cardiovascular examination CA lexiscan stress w vanessa Today I20.9 - Angina pectoris, unspecified, Z01.810 - Encounter for preprocedural cardiovascular examination NM cardiolite stress test Today R07.2 - Precordial pain, Z01.810 - Encounter for preprocedural cardiovascular examination Coding Level of Care Code New Pt Level 4 (04001) Diagnoses Preoperative cardiovascular examination Z01.810 PAD (peripheral artery disease) I73.9 Aortoiliac occlusive disease I74.09 Nicotine dependence, cigarettes, uncomplicated F17.210 CPT Codes EKG - CPT: 51421-[id number], Complete ([id number])
[2024-03-04 13:58] VITALS: BP 120/60; PULSE 75; BMI 21.8
== END 2024-03-04 14:39 | disposition home or self-care (01) ==
PROVIDERS: PCP Family Medicine; Visit Provider Internal Medicine
DX: Z01.810 Encounter for preprocedural cardiovascular examination (principal); I73.9 Peripheral vascular disease, unspecified; I74.09 Other arterial embolism and thrombosis of abdominal aorta; F17.210 Nicotine dependence, cigarettes, uncomplicated
CPT/HCPCS: 93010; 99204

== ENCOUNTER → 2024-03-05 10:52 | Outpatient (REF) | payer OTHER, SELFPAY ==
--- NOTE | 2024-03-05 10:56 | CA_ITS ---
Transthoracic Echocardiogram Patient (Last, First, Middle): Jabier Simpson J Gender: Male Date of : 1965 Age: 58 Procedure Date: 03/05/2024 Procedure Type: Transthoracic Echocardiogram Location: OP Height: 175.26 cm Weight: 68.04 kg BSA: 1.83 m2 Heart Rate: bpm BP: 128 / 70 mmHg Pharmacy Sales Representative: Referring MD: Jamaal Britt MD Symptoms: I25.10 - Atherosclerotic heart disease of [place] coronary artery without... Study Quality: Fair ECG Rhythm: Sinus Conclusions: - The left ventricular systolic function is low normal. The visually estimated ejection fraction is between 50-55%. - No obvious valvular pathology seen on this study. Findings Left Ventricle Normal left ventricular cavity size. There is mildly increased left ventricular wall thickness. The left ventricular systolic function is low normal. The visually estimated ejection fraction is between 50-55%. There is no evidence of regional wall motion abnormalities. Diastolic function is normal for age. Right Ventricle Normal right ventricular cavity size and systolic function. Atria Both atria are normal in size. Aortic Valve There is a normal trileaflet aortic valve. There is no aortic valve stenosis. There is no aortic valve regurgitation. Mitral Valve The mitral valve appears normal. There is no mitral valve regurgitation. There is no mitral valve stenosis. Pulmonic Valve The pulmonic valve is likely normal. Tricuspid Valve Normal tricuspid valve structure. There is trace tricuspid valve regurgitation. There is no evidence of pulmonary hypertension. Great Vessels The asc aorta is normal in size. Venous The inferior vena cava is normal in size and collapses greater than 50% with inspiration. Pericardium/Pleural There is no evidence of pericardial effusion. Prior Study Comparison No prior study available for comparison. Recommendations, Care & Conclusions No obvious valvular pathology seen on this study. Measurements 2D Linear Measurements IVSd: 1.05 0.6-0.9/0.6-1.0 cm LVIDd: 4.41 3.9-5.3/4.2-5.9 cm LVIDd Index: 2.41 2.4-3.2/2.2-3.1 cm/m2 LVIDs: 2.99 2.0-3.6 cm LVPWd: 1.04 0.7-1.1 cm Ao Root: 3.60 2.1-3.5 cm LA Diam: 2.70 2.7-3.8/3.0-4.0 cm LAIDs Index: 1.48 1.5-2.3 cm/m2 LV Mass: 196.41 67-162/88-224 g LV Mass Index: 107.33 43-95/49-115 g/m2 LVOT Diam: 2.30 3.0+(-)1.3 cm 2D Systolic Function EF 4C: 48.60 >55% EF 2C: 50.80 >55% EF BiP: 51.00 >55% Mitral Valve MV Pk E: 0.38 MV PK A: 0.68 MV Decel Time: 361.00 E/A: 0.60 E'Lateral: 5.33 E'Medial: 5.00 E/E' Med: 7.50 E/E' Lat: 7.10 PHT: 106.00 MVA PHT: 2.08 Decel [place]: 1.04 Aortic Valve AoV Pk López: 0.86 AoV Mn López: 0.53 AoV VTI: 0.24 AoV Pk Grad: 3.00 Aov Mn Grad: 1.00 CHARO Cont.VTI: 2.34 LVOT LVOT Pk López: 0.66 LVOT Mn López: 0.44 LVOT VTI: 0.14 LVOT Pk Grad: 2.00 LVOT Mn Grad: 1.00 LVOT Diam: 2.30 LVOT Area: 4.15 Diastolic Function MV Pk E: 0.38 MV Pk A: 0.68 E/A: 0.60 E'Medial: 5.00 E/E' Med: 7.50 E' Laterial: 5.33 E/E' Lat: 7.10 Right Ventricle TAPSE (mm): 20.00 TVS' López: 9.00 Tricuspid Valve TR Pk López: 1.85 TR Pk Grad: 14.00 RA Press: 3.00 RVSP: 17.00 Great Vessels Aorta Ao Root-2D: 3.60 2.0-3.7 cm Ao Asc: 3.10 2.1-3.4 cm Pulmonary Valve PV Pk López: 0.79 Peak PV Grad: 3.00 Updated in Other Vendor System with Status of Final Jamaal Britt MD electronically signed on 03/07/2024 1:04:30 PM with status of Final
--- OUTSIDE RECORDS SUMMARY | 2024-03-05 11:22 | XMS_ITS | Patient Health Record ---
Author Organization [facility] Address [address], [place] [id number] Care Team Providers Care Legal Transcriber Name Role Phone Alba Perry Unavailable [phone] Reason For Referral No Information Plan Of Treatment No Information Insurance Providers Payer Name Payer Address Payer Phone Subscriber Number Group Number Insured Name Patient Relationship to Insured Coverage Start Date Coverage End Date [facility] [employer] [address] [place] [phone] [phone] [id number] Jabier Angel Self - patient is the insured 9
== END ==
LOC: HO.CARD 10:52
PROVIDERS: PCP Family Medicine; Visit Provider Internal Medicine
DX: Z01.810 Encounter for preprocedural cardiovascular examination (principal); I25.10 Atherosclerotic heart disease of native coronary artery without angina pectoris
CPT/HCPCS: 93306

== ENCOUNTER → 2024-03-05 10:56 | Outpatient (BNV) | payer OTHER, SELFPAY | PROVIDERS: PCP Family Medicine; Visit Provider Internal Medicine | DX: I25.10 Atherosclerotic heart disease of native coronary artery without angina pectoris (principal) | CPT/HCPCS: 93306 ==

== ENCOUNTER → 2024-03-07 10:20 | Outpatient (REF) | payer OTHER, SELFPAY ==
--- NOTE | ~2024-03-07 | NM_ITS ---
Lexiscan Myocardial perfusion study Indication: Preoperative cardiac evaluation Technique: The patient was brought in for a Lexiscan perfusion study on 03/07/2024 and was injected 0.4 mg of Lexiscan intravenously. Within a minute of this injection 25 mCi of sestamibi was given intravenously. Images were obtained using the SPECT gamma camera interlaced with the gating device. Images were obtained in supine position. Resting perfusion study was performed on 03/08/2024. Patient was administered 25 mCi of sestamibi intravenously at rest. Images were then obtained in supine position. Total DLP 95 mGy-cm. Images were processed with the software and compared side to side in short axis, horizontal long axis and vertical long axis views. Findings: Raw aquisition reviewed. The stress perfusion study showed diminished tracer uptake along the inferior wall. There is also adjacent subdiaphragmatic tracer uptake. With CT attenuation correction, there is overall improvement suggest a left diaphragmatic attenuation artifact. The gated study shows normal LV systolic function with calculated LVEF of 54%. LV cavity is normal in size. The gated study shows normal wall thickening and contraction of segments. Resting study shows diminished tracer uptake in the inferior wall. There is adjacent subdiaphragmatic tracer uptake. There is improvement with CT attenuation correction suggestive of diaphragmatic attenuation artifact. Gating at rest reveals normal wall motion with ejection fraction at 51%. The findings are consistent with fixed inferior perfusion defect, probably artifactual. No clear reversible defects. NM/NM cardiolite stress test Impression: 1. Myocardial perfusion imaging study shows probably normal myocardial perfusion. 2. Gated LVEF is 54% during stress and 51% during rest. Correlate with echocardiogram. 3. Transient ischemic dilatation not present. EKG component of the test reported separately. Electronically signed by: Jamaal Britt MD 03/10/2024 02:02 PM [facility]
--- NOTE | 2024-03-07 10:24 | CA_ITS ---
Acquisition Time: 2024-03-07 10:42:20 Total Exercise Time: 00:02:00 Test Indications: PRE OP ANGINA PECTORIS Medications: Protocol: LEXISCAN Max HR: 117 BPM 72% of Pred: 161 BPM Max BP: 130/070 mmHG Max Work Load: 1.0 METS Pharmacologic stress test with Lexiscan, while pt marches in chair, with reports of dizziness and SOB, no chest discomfort, with isolated PAC, with normotensive response to injection. Nondiagnostic EKG for ischemia. In recovery, pt's dizziness and SOB quickly resolved. Nuclear images pending. Test reviewed with Dr. Britt. Referred By: Jamaal Britt Overread By:
--- OUTSIDE RECORDS SUMMARY | 2024-03-07 10:24 | XMS_ITS | Patient Health Record ---
Author Organization [facility] Address [address], [place] [id number] Care Team Providers Care Meter Installer Name Role Phone Alba Perry Unavailable [phone] Reason For Referral No Information Plan Of Treatment No Information Insurance Providers Payer Name Payer Address Payer Phone Subscriber Number Group Number Insured Name Patient Relationship to Insured Coverage Start Date Coverage End Date [facility] Be Healthy [address] [place] [phone] [phone] [id number] Jabier Angel Self - patient is the insured 9
== END ==
LOC: HO.CARD 10:20
PROVIDERS: PCP Family Medicine; Visit Provider Internal Medicine
DX: Z01.810 Encounter for preprocedural cardiovascular examination (principal); R07.9 Chest pain, unspecified; I20.9 Angina pectoris, unspecified
CPT/HCPCS: 78452; 93017; A9500; J0280; J2785

== ENCOUNTER → 2024-03-07 10:45 | Outpatient (BNV) | payer OTHER, SELFPAY | PROVIDERS: PCP Family Medicine; Visit Provider Internal Medicine | DX: R06.02 Shortness of breath (principal); I49.1 Atrial premature depolarization | CPT/HCPCS: 78452; 93016; 93018 ==

== ENCOUNTER 2024-03-25 12:26 | Inpatient (IN) | payer MEDICARE, SELFPAY ==
[2024-03-14 12:01] VITALS: BP 139/76; PULSE 86; RESP 16; O2SAT 97; BMI 21.9
[2024-03-14 14:05] LABS: Hematocrit 45.6 % (42.0-52.0); Hemoglobin 15.5 g/dl (14.0-18.0); Mean Corpuscular Volume 88.2 fL (80.0-98.0); Mean Platelet Volume 7.7 fL (9.4-12.4); Platelet Count 374 X10*3/uL (160-400); Red Blood Count 5.17 X10*6/uL (4.60-5.80); Red Cell Distribution Width 13.7 % (11.0-16.0); White Blood Count 8.5 X10*3/uL (4.8-10.8)
[2024-03-14 14:15] LABS: Partial Thromboplastin Time 37.7 SEC (26.0-36.8)
[2024-03-14 14:38] LABS: Alanine Aminotransferase 25 U/L (0-40); Albumin Level 3.8 g/dL (3.5-5.0); Alkaline Phosphatase 120 U/L (39-117); Anion Gap 11 (12-20); Aspartate Amino Transferase 27 U/L (5-37); Bilirubin Total 0.6 mg/dL (0.0-1.0); Blood Urea Nitrogen 6 mg/dL (9-16); Calcium 9.1 mg/dL (8.4-10.2); Carbon Dioxide 28 mmol/L (22-29); Chloride 101 mmol/L (96-108); Estimated Glomerular Filt Rate > 60; Glucose Random 100 mg/dL (60-115); Potassium 4.8 mmol/L (3.3-5.1); Sodium 135 mmol/L (135-145); Total Protein 8.5 g/dL (6.5-8.0)
[2024-03-25] VITALS (22 sets, daily range): BP systolic 137–168; BP diastolic 60–96; PULSE 53–96; RESP 12–18; TEMP 36.1–36.4; O2SAT 95–100
[2024-03-25] MEDS: Lactated Ringers 1,000 ML 100 ML IVCONT (06:46)
[2024-03-25 06:47] LABS: Hematocrit 46.4 % (42.0-52.0); Hemoglobin 15.9 g/dl (14.0-18.0); Mean Corpuscular HGB Conc 34.3 g/dl (31.0-36.0); Mean Corpuscular Hemoglobin 29.6 pg (27.0-33.0); Mean Corpuscular Volume 86.2 fL (80.0-98.0); Mean Platelet Volume 8.4 fL (9.4-12.4); Platelet Count 234 X10*3/uL (160-400); Red Blood Count 5.38 X10*6/uL (4.60-5.80); Red Cell Distribution Width 13.6 % (11.0-16.0); White Blood Count 5.3 X10*3/uL (4.8-10.8)
[2024-03-25 06:59] LABS: Prothrombin Time 11.6 SEC (10.9-12.4)
[2024-03-25 07:01] LABS: Partial Thromboplastin Time 35.1 SEC (26.0-36.8)
[2024-03-25 07:02] LABS: Anion Gap 16 (12-20); Blood Urea Nitrogen 9 mg/dL (9-16); Calcium 8.8 mg/dL (8.4-10.2); Carbon Dioxide 21 mmol/L (22-29); Chloride 100 mmol/L (96-108); Creatinine Clr Calc Pharmacy 95.5; Estimated Glomerular Filt Rate > 60; Glucose Random 112 mg/dL (60-115); Potassium 3.7 mmol/L (3.3-5.1); Sodium 133 mmol/L (135-145)
--- NOTE | 2024-03-25 07:30 | HO.ANESPROP2 ---
Documented by User: Aruna Yu NP 03/21/24 12:06 HPI - Anesthesia Eval Consult details Narrative: 58yo M for Aortoiliac Bifemoral Bypass, 03/25/24 Cardiac optimized: Cardiac testing reviewed. Echocardiogram with LVEF of 50-55%. No wall motion abnormalities. Myocardial perfusion imaging study is unremarkable. Overall, may proceed with proposed surgery. Intermediate cardiac risk. Pulmo optimized: Reviewed CXR which revealed multiple pulmonary nodules, <6mm, otherwise unremarkable. Will have chest CT to further evaluate as patient with significant smoking history and continues to smoke. Order already placed. Reviewed PFT which revealed mild obstructive defect, normal lung volumes and normal DLCO. At this time, patient is considered low risk for perioperative pulmonary complications for proposed vascular procedure. Consider bronchodilators during the perioperative period. No recent illness No CP. SALDIVAR at baseline with walking on flat COPD/Smoker ETOH: 3-4 beers ~ 4 times weekly, discussed decrease slowly preop THC: instructed 3 day hold PMFSH Active Problems Active Problems: All Active Problems Preoperative cardiovascular examination (Acute) Dyspnea (Acute) Encounter for preoperative pulmonary examination (Acute) COPD (chronic obstructive pulmonary disease) (Acute) Nicotine dependence, cigarettes, uncomplicated (Acute) Aortoiliac occlusive disease (Acute) PAD (peripheral artery disease) (Acute) Past Medical History Medical History Aortoiliac occlusive disease PAD (peripheral artery disease) Smoker COPD (chronic obstructive pulmonary disease) Pulmonary nodules History of femoral angiogram (02/07/24) Hx: bad fall (~2021) HLD (hyperlipidemia) Heart attack (~2017) Family History Family History (Updated 03/04/24 @ 14:12 by Chanel Delacruz) Mother History of quadruple bypass Father Aneurysm Family history of problems with anesthesia: No Surgical History Surgical History Hx of myringotomy Hx of tonsillectomy History of surgery on lower extremity (~2003) H/O tooth extraction History of Problems with Anesthesia: No Social History Social History (Updated 03/14/24 @ 12:28 by Latoya Flores RN) Household Members: None Housing: House Are you a primary career discovery teacher to a significant other at home: No Do you presently have visiting nurse or other home services: No 75 years or older and lives alone: No Alcohol intake: current Alcohol intake frequency: a few times a week Alcohol type: beer Comment: aware of trip hazard Patient Tobacco Use Status: Current everyday Tobacco user Tobacco use type: Cigarette Cigarette Packs Per Day: 1 Cigarettes Per Day: 20.0 Second Hand Smoke Exposure: No Substance Use Type: Marijuana Meds Allergies Allergy/AdvReac Type Severity Reaction Status Date / Time codeine AdvReac Mild Vomiting Verified 03/25/24 06:15 bees Allergy Intermediate Anaphylaxis Uncoded 03/25/24 06:16 Home Medications ?Medication ?Instructions ?Recorded ?Confirmed ?Last Taken ?Type aspirin 81 mg chewable tablet 1 tab PO DAILY 01/23/24 03/14/24 03/22/24 History meloxicam 15 mg tablet 15 mg PO DAILY PRN Pain 01/23/24 03/14/24 03/25/24 04:30 History albuterol sulfate 90 mcg/actuation 2 puff inhalation Q4-6H PRN 02/20/24 03/14/24 03/25/24 04:30 History aerosol inhaler Shortness Of Breath Or Wheezing rosuvastatin 20 mg tablet 20 mg PO DAILY 02/20/24 03/14/24 03/25/24 04:30 History tiotropium bromide 18 mcg capsule 1 cap inhalation DAILY 02/20/24 03/14/24 03/25/24 04:30 History with inhalation device (Spiriva with HandiHaler) acetaminophen 500 mg tablet 500 mg PO Q6H PRN Pain 03/14/24 03/14/24 Unknown History Exam Height,Weight and Vital Signs: Height 5 ft 9 in Weight 67.132 kg Last Vital Signs Pulse 86 03/14/24 12:01 Resp 16 03/14/24 12:01 BP 139/76 03/14/24 12:01 Pulse Ox 97 03/14/24 12:01 O2 Del Method Room Air 03/14/24 12:01 Pertinent Lab Results Pertinent Lab Results: Lab Results 03/14/24 03/14/24 Range/Units 12:41 13:35 WBC 8.5 (4.8-10.8) X10*3/uL RBC 5.17 (4.60-5.80) X10*6/uL Hgb 15.5 (14.0-18.0) g/dl Hct 45.6 (42.0-52.0) % MCV 88.2 (80.0-98.0) fL MCH 30.0 (27.0-33.0) pg MCHC 34.0 (31.0-36.0) g/dl RDW 13.7 (11.0-16.0) % Plt Count 374 (160-400) X10*3/uL MPV 7.7 L (9.4-12.4) fL Absolute Nucleated RBC 0.000 (0.0-0.012) X10*3/uL Nucleated RBC % (auto) 0.0 (0.0-0.2) /100WBC PT 12.0 (10.9-12.4) SEC INR 1.0 (0.9-1.1) APTT 37.7 H (26.0-36.8) SEC Sodium 135 (135-145) mmol/L Potassium 4.8 (3.3-5.1) mmol/L Chloride 101 (96-108) mmol/L Carbon Dioxide 28 (22-29) mmol/L Anion Gap 11 L (12-20) BUN 6 L (9-16) mg/dL Creatinine 0.64 (0.5-1.4) mg/dL Estim Creat Clear Calc 118.0 Estimated GFR > 60 Random Glucose 100 (60-115) mg/dL Calcium 9.1 (8.4-10.2) mg/dL Total Bilirubin 0.6 (0.0-1.0) mg/dL AST 27 (5-37) U/L ALT 25 (0-40) U/L Alkaline Phosphatase 120 H (39-117) U/L Total Protein 8.5 H (6.5-8.0) g/dL Albumin 3.8 (3.5-5.0) g/dL Blood Type A Positive Antibody Screen NEGATIVE Narrative Narrative: EKG 02/2024 Details: EKG with underlying sinus rhythm at 75/Min; no significant ST-T changes; normal MI and corrected QT. ECHO 02/2024 Conclusions: - The left ventricular systolic function is low normal. The visually estimated ejection fraction is between 50-55%. - No obvious valvular pathology seen on this study. NM cardiolite stress test 02/2024 Impression: 1. Myocardial perfusion imaging study shows probably normal myocardial perfusion. 2. Gated LVEF is 54% during stress and 51% during rest. Correlate with echocardiogram. 3. Transient ischemic dilatation not present. Airway Heart: RRR Lungs: dim but clear throughout Assessment and Plan Assessment Anesthesia Assessment: Anesthesia Plan Discussed, Smoking Cess. Discussed and PAT Visit Final Anesthetic Review Family History of Problems with Anesthesia: No History of Problems with Anesthesia: No Documented by User: Terri Nassar DO 03/25/24 09:03 [facility] Past Medical History Medical History Aortoiliac occlusive disease PAD (peripheral artery disease) Smoker COPD (chronic obstructive pulmonary disease) Pulmonary nodules History of femoral angiogram (02/07/24) Hx: bad fall (~2021) HLD (hyperlipidemia) Heart attack (~2017) Family History Family History (Updated 03/04/24 @ 14:12 by Chanel Delacruz) Mother History of quadruple bypass Father Aneurysm Family history of problems with anesthesia: No Surgical History Surgical History Hx of myringotomy Hx of tonsillectomy History of surgery on lower extremity (~2003) H/O tooth extraction History of Problems with Anesthesia: No Social History Social History (Updated 03/14/24 @ 12:28 by Latoya Flores RN) Household Members: None Housing: House Are you a primary career discovery teacher to a significant other at home: No Do you presently have visiting nurse or other home services: No 75 years or older and lives alone: No Alcohol intake: current Alcohol intake frequency: a few times a week Alcohol type: beer Comment: aware of trip hazard Patient Tobacco Use Status: Current everyday Tobacco user Tobacco use type: Cigarette Cigarette Packs Per Day: 1 Cigarettes Per Day: 20.0 Second Hand Smoke Exposure: No Substance Use Type: Marijuana Meds Allergies Allergy/AdvReac Type Severity Reaction Status Date / Time codeine AdvReac Mild Vomiting Verified 03/25/24 06:15 bees Allergy Intermediate Anaphylaxis Uncoded 03/25/24 06:16 Home Medications ?Medication ?Instructions ?Recorded ?Confirmed ?Last Taken ?Type aspirin 81 mg chewable tablet 1 tab PO DAILY 01/23/24 03/14/24 03/22/24 History meloxicam 15 mg tablet 15 mg PO DAILY PRN Pain 01/23/24 03/14/24 03/25/24 04:30 History albuterol sulfate 90 mcg/actuation 2 puff inhalation Q4-6H PRN 02/20/24 03/14/24 03/25/24 04:30 History aerosol inhaler Shortness Of Breath Or Wheezing rosuvastatin 20 mg tablet 20 mg PO DAILY 02/20/24 03/14/24 03/25/24 04:30 History tiotropium bromide 18 mcg capsule 1 cap inhalation DAILY 02/20/24 03/14/24 03/25/24 04:30 History with inhalation device (Spiriva with HandiHaler) acetaminophen 500 mg tablet 500 mg PO Q6H PRN Pain 03/14/24 03/14/24 Unknown History Exam Exam Date and Time: 03/25/24 0730 Height,Weight and Vital Signs: Height 5 ft 9 in Weight 67.132 kg Last Vital Signs Pulse 86 03/14/24 12:01 Resp 16 03/14/24 12:01 BP 139/76 03/14/24 12:01 Pulse Ox 97 03/14/24 12:01 O2 Del Method Room Air 03/14/24 12:01 Height 5 ft 9 in Weight 67.132 kg Vital Signs Pulse Rate 86 03/14/24 12:01 Respiratory Rate 16 03/14/24 12:01 Blood Pressure 139/76 03/14/24 12:01 Pulse Oximetry 97 03/14/24 12:01 Oxygen Delivery Method Room Air 03/14/24 12:01 Temperature 97.5 F 03/25/24 06:41 Pulse Rate 96 03/25/24 06:41 Respiratory Rate 16 03/25/24 06:41 Blood Pressure 140/96 H 03/25/24 06:41 Pulse Oximetry 98 03/25/24 06:41 Oxygen Delivery Method Room Air 03/25/24 06:41 Airway Mallampati Class: I TM Dist: >3cm Neck ROM: Full Denture: Upper Heart: S1S2 Lungs: Diminished bilaterally Assessment and Plan Assessment Anesthesia Assessment: Anesthesia Plan Discussed and Chart Reviewed Final Anesthetic Review Family History of Problems with Anesthesia: No History of Problems with Anesthesia: No NPO: Yes ASA Class: III Final Preanesthetic Review: No Changes in Pt Med Stat, Meds/Allgs Chart Reviewed, Consent Obtained/Reviewed and Anes Risks/Benef Reviewed Patient Risk: Intermediate Procedure Risk: High Anesthetic Plan Anesthetic Plan: GA and Agree w/ Assess. and Plan Disposition: Standard PACU
--- NOTE | 2024-03-25 07:39 | MHC.SHP ---
Pre-Procedural Eval Section A - 24 Hr Update-Section A only Date of Service: 03/25/24 The patient is an INPATIENT: No Changes since office visit: Yes Patient answered all questions The patient has been examined within 24 hours of the surgical procedure. The History & Physical has been completed within 30 days and I have reviewed it.: Yes Section B - Complete if H&P > 30 days Chief Complaint: Peripheral vascular disease, unspecified Allergies: Allergies Allergy/AdvReac Type Severity Reaction Status Date / Time codeine AdvReac Mild Vomiting Verified 03/25/24 06:15 bees Allergy Intermediate Anaphylaxis Uncoded 03/25/24 06:16 Plan I have reviewed the history and physical and performed a pertinent physical examination on my patient. No changes have occurred unless specified. Time Spent With Patient Time: Total time managing care of this patient today ____ minutes.
--- NOTE | 2024-03-25 12:20 | P.OP_ITS ---
Operative Note Operative Note Date of Service: 03/25/24 Narrative: Operative note by [facility] Preoperative diagnosis: Aortoiliac occlusive disease Postoperative diagnosis: Same Procedure:1. Aortobifemoral bypass 2. Aortic endarterectomy 3. Left common femoral endarterectomy Surgeon:Everton Sierra M.D. [employer] Manager: Concha Owen, Bernabe Barriga [facility] Anesthesia: General Dr. Nassar Specimens: 2 Drains: None Implant: Albograft [id number] Estimated blood loss: 300 mL with 125 given back as cell Saver Indications: Pleasant 58-year-old gentleman with history of severe aortoiliac occlusive disease. He had severe left lower extremity pain near rest plane equivalent. He now presents for open aortobifemoral bypass. The patient has signed the informed consent after reviewing risks, complications, benefits, and alternatives previously discussed with the patient. The patient was given the opportunity to ask any additional questions or voice any concerns. All questions were answered to the patient's satisfaction. Procedure in detail: Patient was brought to the operating room prior to which a time-out was called for patient identification and site verification abdomen and bilateral groins were prepped and draped in standard surgical fashion. The groins were identified bilaterally previously with ultrasound. Once they were identified longitudinal incisions were created over bilateral groins and we dissected down to the common femoral arteries. Once we did this we encircled the common femoral arteries with silastic loops. Once this was accomplished we did this in both groins and these were packed. We then turned our attention to the abdomen midline incision was carried out from the xiphoid to symphysis pubis. We dissected down through the midline down into the peritoneal cavity. Once we did identify the true peritoneal cavity we opened up the rest of the incision line taking caution to come around the umbilicus. Once we were in the true abdomen 0 G tube was identified. This was in appropriate location. A generalized sweep of the abdomen was undertaken and no other pathology was noted. We then turned our attention to the retroperitoneum. Bookwalter retractor was then placed. We brought the small bowel content over to the patient's right. We then packed away and we exposed the retroperitoneum. Once this was done this was opened up we brought all the way up to the ligament of Treitz just at the duodenal sweep. And this was all the way brought down to the bifurcation the aorta. We were able to easily identify the JENNIFER. We then dissected this free. We had to go a little more proximal to identify a soft spot in the aorta. Once this was done we created tunnels from the groin up to the opening in the retroperitoneum. This was all tunneled under the inguinal ligament in the retroperitoneal space this was done on both sides and red rubber catheters were placed through. We once brought these through and clamped these into position. At this time 5000 units of systemic heparin was administered. After 5 minutes of circulation time proximal and distal clamp was placed on the aorta. Second additional clamp had to be placed to obtain hemostasis. Aortotomy was made and we open this up with a Metzenbaum scissor. It was severely calcified. A localized aortic endarterectomy had to be performed. There was calcified plaque and thrombus that had to be removed this was flushed clear. Once this was done we then brought in an elbow graft 14 x 7 limbs. We trimmed the proximal 14 portion appropriately with an angle and we circumferentially anastomosed this with a 3-0 Prolene. This was then flushed clear through the graft. There was a few interrupted areas with bleeding areas that had to be suture ligated with a 4-0 Prolene suture. Once this was done we flushed through the graft. Grafts were brought through the tunnel that was previously made and the red rubber catheters were then removed. This was done in a similar fashion in both sides. Once this was accomplished we 1st turned our attention to the right side the graft was then instilled with blood opened up to ensure good sizing and appropriate position it was trimmed in a angled manner and once it was in the appropriate size and location we then clamped off the common femoral arteriotomy was then created an opened with Banegas scissor. First the right side was circumferentially anastomosed with a 5 0 Prolene suture. Prior to closure it was flushed clear proximally distally and through the graft. We turned our attention next to the left side and in his similar fashion we brought the graft through trimmed it to the appropriate size. We made our arteriotomy but this was significantly calcified. A localized femoral endarterectomy had to be then performed. In a similar fashion we then circumferentially anastomosed with a 5 0 Prolene suture. Prior to closure we flushed this clear. We then closed we noted good distal pulses in the femoral arteries once this was completely opened up. We then obtained hemostasis we then returned our attention to the abdomen Bookwalter retractor was replaced into position we exposed the retroperitoneum and the retroperitoneum was closed over with a 2-0 Polysorb along its entire length. Once this was all accomplished the entire abdominal contents was returned to the normal anatomic positions and we thoroughly irrigated this area with warm saline we then brought the abdomen with looped 0 PDS. This was brought proximally and distally to ensure that the midline incision was completely closed. We then turned our attention to the groins and we closed this in multiple layers using 2-0 Polysorb 3-0 poly Sorb and finally skin clips. In the abdomen we closed the entire abdominal wall skin layer with skin clips as well. Sterile dressing was applied. At the end the case sponge instrument counts were correct. Patient tolerated the procedure well returned to recovery with stable vitals and palpable bilateral on the right dorsalis pedis and left posterior tibial pulses. This note is constructed using voice recognition software. While every effort has been made to ensure accuracy, geophysical operator errors may have been included. Thank you for allowing me to participate in the care of your patient. Yours sincerely, Everton Sierra MD, FACS, R.P.V.I.
[2024-03-25] MEDS: HYDROmorphone HCl 0.5 MG/0.5 ML SYRINGE IVPUSH ×2 (12:33→12:41)
[2024-03-25 13:02] LABS: MANUAL DIFF FLAG NO
[2024-03-25 13:05] LABS: Basophils Percent Auto 0.3 % (0-2); Eosinophils Percent Auto 0.2 % (0-4); Hematocrit 38.9 % (42.0-52.0); Hemoglobin 13.3 g/dl (14.0-18.0); Imm Gran Abs Auto 0.08 X10*3/uL (0.00-0.03); Imm Gran Pct Auto 1.2 % (0.0-0.4); Lymphocytes Absolute Auto 0.7 X10*3/uL (1.2-4.9); Lymphocytes Percent Auto 11.3 % (20-40); Mean Corpuscular HGB Conc 34.2 g/dl (31.0-36.0); Mean Corpuscular Volume 87.8 fL (80.0-98.0); Mean Platelet Volume 8.5 fL (9.4-12.4); Monocytes Absolute Auto 0.2 X10*3/uL (0.1-1.2); Monocytes Percent Auto 3.1 % (2-11); Neutrophils Absolute Auto 5.5 x10*3/uL (2.0-8.3); Neutrophils Percent Auto 83.9 % (45-73); Platelet Count 187 X10*3/uL (160-400); Red Blood Count 4.43 X10*6/uL (4.60-5.80); Red Cell Distribution Width 13.6 % (11.0-16.0); White Blood Count 6.6 X10*3/uL (4.8-10.8)
--- NOTE | 2024-03-25 13:12 | PHA.MEDREC ---
Pharmacy Consult ? Medication Reconciliation Pharmacy has reviewed the medication reconciliation dine by nursing.
[2024-03-25 13:24] LABS: Blood Urea Nitrogen 9 mg/dL (9-16); Creatinine Clr Calc Pharmacy 109.4; Estimated Glomerular Filt Rate > 60; Glucose Random 164 mg/dL (60-115)
[2024-03-25 13:40] LABS: Anion Gap 8 (12-20); Calcium 7.5 mg/dL (8.4-10.2); Carbon Dioxide 23 mmol/L (22-29); Chloride 105 mmol/L (96-108); Potassium 4.5 mmol/L (3.3-5.1); Sodium 131 mmol/L (135-145)
[2024-03-25] MEDS: ceFAZolin Sodium/Dextrose,Iso 2 GM/50 ML PIGGYBACK IV (14:35)
[2024-03-25] MEDS: Morphine Sulfate 2 MG/ML CARTRIDGE IVPUSH ×3 (14:40→22:53)
--- NOTE | 2024-03-25 16:33 | PM.CCHP ---
History of Present Illness Date of Service: 03/25/24 Chief Complaint: Elective surgery 58-year-old gentleman who is a chronic smoker previously smoked about 3 ppd now reduced to 1 PPD, social alcoholic drinks about 1-2 beers every night with past medical history of CAD with [place] in 2018, peripheral artery disease, aorto occlusive disease, COPD presented to the hospital for an elective open aortofemoral bypass by Dr. Sierra. He underwent the procedures successfully, no complications and is being admitted to medical ICU for postop management Review of Systems Constitutional: Constitutional: Denies anorexia, Denies body ache(s) and Denies chills Eyes: Eyes: Denies blurry vision, Denies exophthalmos and Denies change in vision ENT: Denies Normal hearing present and Denies bleeding gums Cardiovascular: Cardiovascular: Denies Abdominal Cramping after Meds and Denies Abdominal Distension Respiratory: Respiratory: Denies no additional respiratory complaints, Denies change in phlegm color, Denies chest congestion and Denies cough Gastrointestinal: Gastrointestinal: Reports abdominal pain, Denies belching and Denies change in bowel habits Genitourinary: Genitourinary: Denies hematospermia, Denies change in libido and Denies hematuria Musculoskeletal: Musculoskeletal: Denies abnormal gait, Denies back pain and Denies atrophy Neurologic: Denies Normal hearing present, Denies abnormal gait and Denies behavioral changes Psychiatric: Psychiatric: Denies behavioral changes, Denies change in appetite and Denies change in libido Endocrine: Endocrine: Denies change in body appearance, Denies change in libido and Denies cold intolerance [facility] Past Medical History Medical History Aortoiliac occlusive disease PAD (peripheral artery disease) Smoker COPD (chronic obstructive pulmonary disease) Pulmonary nodules History of femoral angiogram (02/07/24) Hx: bad fall (~2021) HLD (hyperlipidemia) Heart attack (~2017) Family History Family History (Updated 03/04/24 @ 14:12 by Chanel Delacruz) Mother History of quadruple bypass Father Aneurysm Surgical History Surgical History Hx of myringotomy Hx of tonsillectomy History of surgery on lower extremity (~2003) H/O tooth extraction Social History Social History (Updated 03/14/24 @ 12:28 by Latoya Flores RN) Household Members: None Housing: House Are you a primary ocular care technician to a significant other at home: No Do you presently have visiting nurse or other home services: No Alcohol intake: current Alcohol intake frequency: a few times a week Alcohol type: beer Comment: aware of trip hazard Patient Tobacco Use Status: Current everyday Tobacco user Tobacco use type: Cigarette Cigarette Packs Per Day: 1 Cigarettes Per Day: 1 Years Smoked: 40 Smoked in Last 30 Days: Yes e-Cigarette/Vaping Use: Never Used Patient Interested in Nicotine Replacement: Yes Patient Given Instructions on How to Stop Smoking: No Second Hand Smoke Exposure: No Use of substances other than those prescribed or required for medical reasons: Yes Substance Use Type: Marijuana Substance Use Frequency: Daily Last Used Substance: Days (ago) Last Used Substance Other:: 03/23/2024 Currently Displaying Signs/Symptoms of Drug Intoxication Withdrawal: No Other Past Substance Use Problem:: no Any prior treatment program specific to substance use: No Have you been hit, kicked, punched, or otherwise hurt by someone within the past year? If so, by whom?: No Do you feel safe in your current relationship?: No Current Relationship Is there a partner from a previous relationship who is making you feel unsafe now?: No Are you made to feel afraid or neglected: No Are you DNR?: No Advance Directives: No Advance Directives Information Provided: Yes Advance Directives on File: No Recently lost weight without trying: No How much weight loss: Unsure Eating poorly because of decreased appetite: Yes Nutrition screen score: 3 Nutrition Risks: No Nutritional Risk Poor oral hygiene: No Meds Allergies Allergy/AdvReac Type Severity Reaction Status Date / Time codeine AdvReac Mild Vomiting Verified 03/25/24 06:15 bees Allergy Intermediate Anaphylaxis Uncoded 03/25/24 06:16 Active Medications: Current Medications Acetaminophen (Acetaminophen 325 Mg Tablet) 650 mg PO Q6H PRN PRN Reason: Pain, Mild 1-3,fever,headache Calcium Carbonate (Calcium Carbonate 750 Mg Tab.Chew) 750 mg PO Q4H PRN PRN Reason: Heartburn Lactated Ringer's (Lr) 1,000 mls @ 100 mls/hr IVCONT .Q10H DARIUS Last Admin: 03/25/24 15:07 Dose: Not Given Magnesium Hydroxide (Milk Of Magnesia 30 Ml Oral.Susp) 30 ml PO DAILY PRN PRN Reason: Constipation Melatonin (Melatonin 3 Mg Tablet) 6 mg PO BEDTIME PRN PRN Reason: Insomnia Morphine Sulfate (Morphine Sulfate 2 Mg/Ml Cartridge) 2 mg IVPUSH Q4H PRN; Protocol PRN Reason: Pain, Severe (Pain Scale 7-10) Last Admin: 03/25/24 14:40 Dose: 2 mg Naloxone HCl (Naloxone Hcl 0.4 Mg/Ml Vial) 0.04 mg IVPUSH Q5M PRN PRN Reason: Excessive sedation or RR < 8 Oxycodone HCl (Oxycodone Hcl Immed Release 5 Mg Tablet) 5 mg PO Q4H PRN PRN Reason: Pain, Moderate(Pain Scale 4-6) Sodium Chloride (0.9 % Sodium Chloride Flush 3 Ml Syringe) 3 ml IVFLUSH QSHIFT [facility] Medications ?Medication ?Instructions ?Recorded ?Confirmed ?Last Taken ?Type aspirin 81 mg chewable tablet 1 tab PO DAILY 01/23/24 03/14/24 03/22/24 History meloxicam 15 mg tablet 15 mg PO DAILY PRN Pain 01/23/24 03/14/24 03/25/24 04:30 History albuterol sulfate 90 mcg/actuation 2 puff inhalation Q4-6H PRN 02/20/24 03/14/24 03/25/24 04:30 History aerosol inhaler Shortness Of Breath Or Wheezing rosuvastatin 20 mg tablet 20 mg PO DAILY 02/20/24 03/14/24 03/25/24 04:30 History tiotropium bromide 18 mcg capsule 1 cap inhalation DAILY 02/20/24 03/14/24 03/25/24 04:30 History with inhalation device (Spiriva with HandiHaler) acetaminophen 500 mg tablet 500 mg PO Q6H PRN Pain 03/14/24 03/14/24 Unknown History Physical Exam Vital Signs: Vital Signs: Last Vital Signs Temp 97.0 F 03/25/24 15:57 Pulse 59 03/25/24 15:57 Resp 15 03/25/24 15:57 BP 140/64 H 03/25/24 15:57 Pulse Ox 97 03/25/24 15:57 O2 Del Method Nasal Cannula 03/25/24 15:57 O2 Flow Rate 2 03/25/24 15:57 BMI result Body Mass Index 21.9 General: Middle-aged gentleman sitting in the bed comfortably in some pain Nutritional Appearance: poorlynourished and under weight Eyes: appearance normal, both eyes and all related structures; Alignment and Position: alignment normal and position normal Neck: No lymphadenopathy, no thyromegaly Resp: bilateral air entry equal, occasional added sounds present Cardio: Regular rate, regular rhythm; Heart sounds: S1 normal heart sound present and S2 normal heart sound present GI: soft, nontender, no guarding, no hepatosplenomegaly : bladder normal to inspection, bladder normal to palpation, no renal angle tenderness Skin: no rashes or lesions noted and elasticity normal Neuro: oriented to person, oriented to place, oriented to time and moves all extremities Neuro: Cranial nerves: No Normal hearing present Results Labs 03/25/24 12:56 03/25/24 12:56 Labs: Laboratory Results - last 24 hr 03/25/24 03/25/24 06:32 12:56 MCV 86.2 87.8 MCH 29.6 30.0 MCHC 34.3 34.2 RDW 13.6 13.6 Plt Count 234 D 187 MPV 8.4 L 8.5 L Immature Gran % (Auto) 1.2 H Neut % (Auto) 83.9 H Lymph % (Auto) 11.3 L [place] % (Auto) 3.1 Eos % (Auto) 0.2 Baso % (Auto) 0.3 Lymph # (Auto) 0.7 L [place] # (Auto) 0.2 Eos # (Auto) 0.0 Baso # (Auto) 0.0 Abs Immat Gran (auto) 0.08 H Absolute Neuts (auto) 5.5 Absolute Nucleated RBC 0.000 0.000 Nucleated RBC % (auto) 0.0 0.0 PT 11.6 INR 1.0 APTT 35.1 Anion Gap 16 8 L Estim Creat Clear Calc 95.5 109.4 Estimated GFR > 60 > 60 Random Glucose 112 164 H Calcium 8.8 7.5 L D Assessment and Plan (1) PAD (peripheral artery disease): Status: Acute (2) Aortoiliac occlusive disease: Status: Acute (3) Preoperative cardiovascular examination: Status: Acute (4) COPD (chronic obstructive pulmonary disease): Status: Acute (5) Dyspnea: Status: Acute (6) Nicotine dependence, cigarettes, uncomplicated: Status: Acute Plan 58-year-old gentleman who is a chronic smoker previously smoked about 3 ppd now reduced to 1 PPD, social alcoholic drinks about 1-2 beers every night with past medical history of CAD with HI in 2018, peripheral artery disease, aorto occlusive disease, COPD presented to the hospital for an elective open aortofemoral bypass by Dr. Sierra. He underwent the procedures successfully, no complications and is being admitted to medical ICU for postop management. We will closely monitor his hemodynamic status, control pain with p.o. oxycodone and as needed IV morphine. His COPD at his breathing is stable, we will do as needed duo nebs. Risk for alcohol withdrawal as he is a daily drinker, if needed we will activate CIWA protocol. He is a chronic smoker, refused nicotine patch for now. Total time managing care of this patient today: 35 minutes.
[2024-03-25] MEDS: Acetaminophen 325 MG TABLET 650 MG PO (20:58)
[2024-03-25] MEDS: oxyCODONE HCl Immed Release 5 MG TABLET PO (20:59)
[2024-03-25] MEDS: Albuterol/Iprat 2.5/0.5MG 3 ML AMPUL.NEB INHALE (21:38)
[2024-03-26] VITALS (33 sets, daily range): BP systolic 115–175; BP diastolic 64–99; PULSE 54–96; RESP 12–31; TEMP 36.3–37.3; O2SAT 90–100; BMI 21.9
[2024-03-26] MEDS: oxyCODONE HCl Immed Release 5 MG TABLET PO ×6 (01:01→23:21)
[2024-03-26] MEDS: Lactated Ringers 1,000 ML 100 ML IVCONT ×3 (01:01→20:47)
[2024-03-26] MEDS: Morphine Sulfate 2 MG/ML CARTRIDGE IVPUSH ×6 (04:00→21:33)
[2024-03-26 06:21] LABS: Hematocrit 37.3 % (42.0-52.0); Hemoglobin 12.5 g/dl (14.0-18.0); Mean Corpuscular HGB Conc 33.5 g/dl (31.0-36.0); Mean Corpuscular Hemoglobin 29.7 pg (27.0-33.0); Mean Corpuscular Volume 88.6 fL (80.0-98.0); Mean Platelet Volume 9.1 fL (9.4-12.4); Platelet Count 176 X10*3/uL (160-400); Red Blood Count 4.21 X10*6/uL (4.60-5.80); Red Cell Distribution Width 13.8 % (11.0-16.0); White Blood Count 6.6 X10*3/uL (4.8-10.8)
[2024-03-26] MEDS: Acetaminophen 325 MG TABLET 650 MG PO ×3 (06:21→18:37)
[2024-03-26 06:25] LABS: Anion Gap 9 (12-20); Blood Urea Nitrogen 6 mg/dL (9-16); Calcium 7.7 mg/dL (8.4-10.2); Carbon Dioxide 26 mmol/L (22-29); Chloride 102 mmol/L (96-108); Creatinine Clr Calc Pharmacy 119.8; Estimated Glomerular Filt Rate > 60; Glucose Random 101 mg/dL (60-115); Potassium 4.4 mmol/L (3.3-5.1); Sodium 133 mmol/L (135-145)
[2024-03-26] MEDS: 0.9 % Sodium Chloride Flush 3 ML SYRINGE IVFLUSH ×3 (07:18→20:48)
[2024-03-26 07:27] LABS: Albumin Level 2.6 g/dL (3.5-5.0)
[2024-03-26] MEDS: Albuterol/Iprat 2.5/0.5MG 3 ML AMPUL.NEB INHALE ×4 (08:49→20:39)
--- NOTE | 2024-03-26 08:54 | PM.CCPN ---
Subjective Subjective Date of Service: 03/26/24 Critical Care Time (minutes): 35 Comment: No new events, blood pressure slightly on the higher side Hemoglobin 12.5 Physical Exam Vital Signs: Vital Signs: Last Vital Signs Temp 97.7 F 03/26/24 08:00 Pulse 81 03/26/24 08:00 Resp 18 03/26/24 08:00 BP 139/95 H 03/26/24 08:00 Pulse Ox 93 03/26/24 08:33 O2 Del Method High Flow Nasal C annula 03/26/24 08:33 O2 Flow Rate 2 03/26/24 08:00 Oxygen Flow Rate 40 03/26/24 08:33 BMI result Body Mass Index 21.9 General: Not in acute distress, comfortably sitting in the bed Nutritional Appearance: well nourished and overweight Eyes: appearance normal, both eyes and all related structures; Alignment and Position: alignment normal and position normal Neck: No lymphadenopathy, no thyromegaly Resp: bilateral air entry equal, occasional added sounds present Cardio: Regular rate, regular rhythm; Heart sounds: S1 normal heart sound present and S2 normal heart sound present GI: soft, nontender, no guarding, no hepatosplenomegaly : bladder normal to inspection, bladder normal to palpation, no renal angle tenderness Skin: no rashes or lesions noted and elasticity normal Neuro: oriented to person, oriented to place, oriented to time and moves all extremities Objective Data Labs 03/26/24 05:26 03/26/24 05:26 Labs: Laboratory Results - last 24 hr 03/25/24 03/26/24 12:56 05:26 WBC 6.6 6.6 RBC 4.43 L 4.21 L Hgb 13.3 L 12.5 L Hct 38.9 L 37.3 L MCV 87.8 88.6 MCH 30.0 29.7 MCHC 34.2 33.5 RDW 13.6 13.8 Plt Count 187 176 MPV 8.5 L 9.1 L Immature Gran % (Auto) 1.2 H Neut % (Auto) 83.9 H Lymph % (Auto) 11.3 L [place] % (Auto) 3.1 Eos % (Auto) 0.2 Baso % (Auto) 0.3 Lymph # (Auto) 0.7 L [place] # (Auto) 0.2 Eos # (Auto) 0.0 Baso # (Auto) 0.0 Abs Immat Gran (auto) 0.08 H Absolute Neuts (auto) 5.5 Absolute Nucleated RBC 0.000 0.000 Nucleated RBC % (auto) 0.0 0.0 Sodium 131 L 133 L Potassium 4.5 D 4.4 Chloride 105 102 Carbon Dioxide 23 26 Anion Gap 8 L 9 L BUN 9 6 L Creatinine 0.69 0.63 Estim Creat Clear Calc 109.4 119.8 Estimated GFR > 60 > 60 Random Glucose 164 H 101 Calcium 7.5 L D 7.7 L Albumin 2.6 L Progress Note: A&P Assessment and plan (1) PAD (peripheral artery disease): Status: Acute (2) Aortoiliac occlusive disease: Status: Acute (3) Preoperative cardiovascular examination: Status: Acute (4) COPD (chronic obstructive pulmonary disease): Status: Acute (5) Encounter for preoperative pulmonary examination: Status: Acute (6) Dyspnea: Status: Acute (7) Nicotine dependence, cigarettes, uncomplicated: Status: Acute Plan 58-year-old gentleman who is a chronic smoker previously smoked about 3 ppd now reduced to 1 PPD, social alcoholic drinks about 1-2 beers every night with past medical history of CAD with [place] in 2018, peripheral artery disease, aorto occlusive disease, COPD presented to the hospital for an elective open aortofemoral bypass by Dr. Sierra. He underwent the procedure successfully, no complications on 03/25/2024. Slight drop in hemoglobin to 12.5g/dl, no obvious bleeding or hematoma Continue pain management with p.o. oxycodone and as needed IV morphine. COPD: breathing is stable, we will do as needed duo nebs. Risk for alcohol withdrawal as he is a daily drinker, if needed we will activate CIWA protocol. He is a chronic smoker, refused nicotine patch for now. We will continue to closely monitor him in the ICU for another day Quality Stroke Does the patient have a stroke diagnosis?: No VTE Prior VTE?: No VTE Risk Level:: Surgical - low VTE Device Contraindication: Procedure Contraindicated VTE Drug Contraindication: N/A - Med Ordered
--- NOTE | 2024-03-26 09:00 | HO.VASCPN ---
Subjective Subjective Date of Service: 03/26/24 Interval history: Jabier is doing ok this morning. He endorses more pain this morning than yesterday. He remains in bed with the head of the bed around 15 degrees. He remains NPO. He continues on IV LR at 100mL/hr. He states he is concerned about moving/sneezing/coughing. He denies any CP, diff breathing, shortness of breath, abd pain (separate from the incision site pain). He has not had any flatus yet. Physical Exam Vital Signs: Vital Signs: Last Vital Signs Temp 97.7 F 03/26/24 08:00 Pulse 68 03/26/24 08:52 Resp 15 03/26/24 08:52 BP 139/95 H 03/26/24 08:00 Pulse Ox 93 03/26/24 08:33 O2 Del Method High Flow Nasal C annula 03/26/24 08:33 O2 Flow Rate 2 03/26/24 08:00 Oxygen Flow Rate 40 03/26/24 08:33 BMI result Body Mass Index 21.9 Const: General: comfortable and no acute distress Orientation/consciousness: patient oriented x3 HEENT: Ears: hearing grossly normal bilaterally Resp: Effort & Inspection: normal respiratory effort and able to speak in complete sentences Auscultation: clear to auscultation bilaterally Cardio: Rate: regular rate Rhythm: regular rhythm Heart sounds: S1 normal heart sound present and S2 normal heart sound present Bruits: no abdominal aortic bruits, no carotid bruits, no femoral bruits and no renal bruits GI: Other: Abd soft, tender to palpation. Dressings in place, no drainage noted on dressings. Palpation (GI): No Abdominal aortic bruit present Neuro: General: patient oriented x3 Cranial nerves: Yes CN's II-XII intact bilaterally Extrem: Other: Bilateral feet: warm. Palpable PT pulse on left foot, palpable DP and PT on right foot. Progress Note: A&P Assessment and plan (1) Aortoiliac occlusive disease: Status: Acute Assessment and Plan: Jabier is post op day 1 from an aortoiliac bifem bypass. He endorses significant abd pain at the site of the incision. He has been using his incentive spirometry. He continues NPO and on bedrest. We will place him on a bowel regimen today. We will have nursing remove the A-line and Segura. He will continue on IVLR at 100mL/hr. We will hold his PO home meds and order Heparin 5000U SQ tid. I had a lengthy discussion with him to get the pain medications prior to the pain getting too bad, no higher than 6-7/10 on the pain scale. We had a lengthy discussion that he will need to stay in bed as well but to use the incentive spirometry often to prevent pneumonia. We discussed that he will stay in the ICU one more day and we will transfer him up to the med/surg floor likely tomorrow. We discussed that we will start him with a bland diet tomorrow and get PT involved. Time Spent With Patient Time: Total time managing care of this patient today ____ minutes. Procedures Date of Service Date of Service: 03/26/24 Quality Stroke Does the patient have a stroke diagnosis?: No VTE Prior VTE?: No VTE Risk Level:: Medical - moderate - high VTE Device Contraindication: Treatment Not Indicated VTE Drug Contraindication: N/A - Med Ordered
[2024-03-26] MEDS: Docusate Sodium 100 MG CAPSULE PO (09:53)
[2024-03-26] MEDS: Heparin Sodium,Porcine 5,000 UNIT/ML VIAL 5000 UNIT SUBCUT ×2 (09:57→16:28)
--- NOTE | 2024-03-26 10:01 | MHC.CM.PN ---
Met w/pt to discuss d/c planning: pt resides alone, no services or DME, drives and states no barriers to care. 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 Pt feels he can apply dry dressings if needed. He states he has a ride home and will be able to transport self to outpt appointments. HCP declined CM to re approach closer to d/c date as he may benefit from VNA.
--- NOTE | 2024-03-26 17:31 | PC.NURSE ---
Addendum entered by Katja Best RN 03/26/24 18:20: removal approved by Nail Kegger. tolerated well line removed intact pressure applied and bleeding stopped DSD applied to site. Addendum entered by Katja Best RN 03/26/24 18:19: A-line removed due to inaccurate readings and patient request. Original Note: A-line maintained in place as per Nail Kegger, right lower extremity with improving color and capillary refill, patient stated more sensation to that extremity this afternoon.
[2024-03-27] VITALS (29 sets, daily range): BP systolic 126–180; BP diastolic 73–96; PULSE 71–106; RESP 14–21; TEMP 36.4–37.7; O2SAT 86–99; BMI 22.2
[2024-03-27] MEDS: Heparin Sodium,Porcine 5,000 UNIT/ML VIAL 5000 UNIT SUBCUT ×4 (00:19→23:43)
[2024-03-27] MEDS: Acetaminophen 325 MG TABLET 650 MG PO ×3 (00:20→20:27)
[2024-03-27] MEDS: Morphine Sulfate 2 MG/ML CARTRIDGE IVPUSH ×8 (00:22→23:43)
[2024-03-27] MEDS: oxyCODONE HCl Immed Release 5 MG TABLET PO ×5 (02:24→23:21)
[2024-03-27 05:37] LABS: MANUAL DIFF FLAG NO
[2024-03-27 05:39] LABS: Basophils Percent Auto 0.4 % (0-2); Eosinophils Absolute Auto 0.1 X10*3/uL (0.0-0.4); Eosinophils Percent Auto 0.8 % (0-4); Hematocrit 36.8 % (42.0-52.0); Hemoglobin 12.6 g/dl (14.0-18.0); Imm Gran Abs Auto 0.06 X10*3/uL (0.00-0.03); Imm Gran Pct Auto 0.8 % (0.0-0.4); Lymphocytes Absolute Auto 1.6 X10*3/uL (1.2-4.9); Lymphocytes Percent Auto 20.5 % (20-40); Mean Corpuscular HGB Conc 34.2 g/dl (31.0-36.0); Mean Corpuscular Hemoglobin 29.8 pg (27.0-33.0); Mean Platelet Volume 8.5 fL (9.4-12.4); Monocytes Absolute Auto 0.5 X10*3/uL (0.1-1.2); Monocytes Percent Auto 7.2 % (2-11); Neutrophils Absolute Auto 5.3 x10*3/uL (2.0-8.3); Neutrophils Percent Auto 70.3 % (45-73); Platelet Count 180 X10*3/uL (160-400); Red Blood Count 4.23 X10*6/uL (4.60-5.80); Red Cell Distribution Width 13.8 % (11.0-16.0); White Blood Count 7.6 X10*3/uL (4.8-10.8)
[2024-03-27 05:50] LABS: Albumin Level 2.6 g/dL (3.5-5.0); Anion Gap 10 (12-20); Blood Urea Nitrogen 5 mg/dL (9-16); Calcium 7.8 mg/dL (8.4-10.2); Carbon Dioxide 23 mmol/L (22-29); Chloride 103 mmol/L (96-108); Creatinine Clr Calc Pharmacy 125.8; Estimated Glomerular Filt Rate > 60; Glucose Random 95 mg/dL (60-115); Potassium 3.6 mmol/L (3.3-5.1); Sodium 132 mmol/L (135-145)
[2024-03-27] MEDS: Albuterol/Iprat 2.5/0.5MG 3 ML AMPUL.NEB INHALE ×4 (07:25→19:40)
[2024-03-27] MEDS: Atorvastatin Calcium 40 MG TABLET 80 MG PO (08:15)
[2024-03-27] MEDS: Docusate Sodium 100 MG CAPSULE PO ×2 (08:15→20:27)
[2024-03-27] MEDS: Albumin Human 25 % 100 ML IV ×2 (08:15→09:16)
[2024-03-27] MEDS: 0.9 % Sodium Chloride Flush 3 ML SYRINGE IVFLUSH ×3 (08:23→20:27)
--- NOTE | 2024-03-27 11:22 | HO.VASCPN ---
Subjective Subjective Date of Service: 03/27/24 Interval history: Jabier is post op day 2 s/p aortoiliac bifem bypass. He is doing well this morning, he states his pain is controlled at 6-7/10. He denies any CP, diff breathing, and shortness of breath. He has not passed any flatus or had any BM. He denies any fever/chills/body aches. He continues on IV LR. He continues on bedrest. Physical Exam Vital Signs: Vital Signs: Last Vital Signs Temp 97.6 F 03/27/24 00:00 Pulse 85 03/27/24 11:09 Resp 19 03/27/24 11:09 BP 150/82 H 03/27/24 11:00 Pulse Ox 99 03/27/24 11:00 O2 Del Method Nasal Cannula 03/27/24 11:00 O2 Flow Rate 2 03/27/24 11:00 Oxygen Flow Rate 40 03/26/24 08:33 BMI result Body Mass Index 22.2 Const: General: comfortable and no acute distress Orientation/consciousness: patient oriented x3 HEENT: Ears: hearing grossly normal bilaterally Resp: Effort & Inspection: normal respiratory effort and able to speak in complete sentences Auscultation: clear to auscultation bilaterally Cardio: Rate: regular rate Rhythm: regular rhythm Heart sounds: S1 normal heart sound present and S2 normal heart sound present Bruits: no abdominal aortic bruits, no carotid bruits, no femoral bruits and no renal bruits GI: Other: Dressing taken down. Gonzales in place. No erythema noted. Abd soft, tender to palpation around incision site. Palpation (GI): No Abdominal aortic bruit present : Other: Bilateral femoral incisions: dressings taken down, incision sites C/D/I. Neuro: General: patient oriented x3 Cranial nerves: Yes CN's II-XII intact bilaterally Progress Note: A&P Assessment and plan (1) Aortoiliac occlusive disease: Status: Acute Assessment and Plan: Jabier is post op day 2 s/p aortoiliac bifem bypass. He continues to have significant breakthrough pain. This morning he states he is comfortable and the pain is about 6-7/10. He is urinating well but has not passed flatus or a BM yet. Labs remain stable, white count WNL. We took down the dressings this morning and everything is C/D/I. There is no erythema or swelling noted. All rangel are intact. We will have him get OOB today to the chair; I discussed with the pt that this will cause significant pain and discomfort. We will have him transferred to the Telemetry unit today. We have changed his order of Morphine to q3h prn to help with the breakthrough pain. We will have him start his PO home meds and continue on Heparin SQ. We will continue with IV LR. Time Spent With Patient Time: Total time managing care of this patient today__40_ minutes. Procedures Date of Service Date of Service: 03/27/24 Quality Stroke Does the patient have a stroke diagnosis?: No VTE Prior VTE?: No VTE Risk Level:: Surgical - low VTE Device Contraindication: Procedure Contraindicated VTE Drug Contraindication: N/A - Med Ordered
--- NOTE | 2024-03-27 13:47 | MHC.CM.PN ---
Pt continues care in ICU following extensive vascular procedures. Pt will likely be able to transfer to [facility] today and d/c to home tomorrow. Pt continues to deny need for VNA at home and feels he will be able to manage his own care needs. Pt will call his friend for transportation to home.
--- NOTE | 2024-03-27 20:24 | PC.NURSE ---
Late entry/ documentation clarification: PRN acetaminophen 650mg PO (pain scale 1-3) administered 03/27/24 at 0616 (see MAR) was documented with patient pain reported at 7 on pain scale; additionally PRN oxycodone 5mg (pain scale 4-6) administered 03/27/24 at 0617 (see MAR) documented with patient reported pain at 7 on pain scale. Per patient, PRN medications were requested for continued pain control despite pain reported outside of pain scale parameter.
[2024-03-27] MEDS: Calcium Carbonate 750 MG TAB.CHEW PO (20:27)
--- NOTE | 2024-03-27 21:33 | HO.PM.IMCN ---
History of Present Illness Data of Consult Service Date: 03/27/24 Requesting physician: Everton Sierra Primary Care Provider: Jaja Garcia MD [facility] Reason for consult: Medical consult patient is a 58-year-old male with a past medical history significant for smoking, CAD, MS 2018, PAD, aorto occlusive disease, and COPD, status post aorto iliac bifem bypass on 03/25, consulted for general medical care. The patient has step-down from the ICU after the procedure and has been doing well. Reports that he has been able to urinate but has yet been able to pass any significant gas or have a bowel movement. He is struggling somewhat with his pain management but reports that he went hours without his pain medication as he thought he was doing well and now he is trying to catch up regarding more severe pain. He denies any shortness of breath, chest pain, nausea or vomiting. He has no medical concerns currently. Reports that his COPD is extremely mild and he does not take any medications for this. He does consume 1-2 beers per day but has not had any issues with alcohol withdrawal were high CIWA scores so far during his admission. [facility] Medical History (Updated 03/27/24 @ 21:44 by Ashley Souza PA-C) Aortoiliac occlusive disease PAD (peripheral artery disease) Smoker COPD (chronic obstructive pulmonary disease) Pulmonary nodules History of femoral angiogram (02/07/24) Hx: bad fall (~2021) HLD (hyperlipidemia) Heart attack (~2017) Family History (Updated 03/04/24 @ 14:12 by Chanel Delacruz) Mother History of quadruple bypass Father Aneurysm Surgical History Hx of myringotomy Hx of tonsillectomy History of surgery on lower extremity (~2003) H/O tooth extraction Social History (Updated 03/14/24 @ 12:28 by Latoya Flores RN) Household Members: None Housing: House Are you a primary direct care professional to a significant other at home: No Do you presently have visiting nurse or other home services: No Alcohol intake: current Alcohol intake frequency: a few times a week Alcohol type: beer Comment: aware of trip hazard Patient Tobacco Use Status: Current everyday Tobacco user Tobacco use type: Cigarette Cigarette Packs Per Day: 1 Cigarettes Per Day: 1 Years Smoked: 40 Smoked in Last 30 Days: Yes e-Cigarette/Vaping Use: Never Used Patient Interested in Nicotine Replacement: Yes Patient Given Instructions on How to Stop Smoking: No Second Hand Smoke Exposure: No Use of substances other than those prescribed or required for medical reasons: Yes Substance Use Type: Marijuana Substance Use Frequency: Daily Last Used Substance: Days (ago) Last Used Substance Other:: 03/23/2024 Currently Displaying Signs/Symptoms of Drug Intoxication Withdrawal: No Other Past Substance Use Problem:: no Any prior treatment program specific to substance use: No Have you been hit, kicked, punched, or otherwise hurt by someone within the past year? If so, by whom?: No Do you feel safe in your current relationship?: No Current Relationship Is there a partner from a previous relationship who is making you feel unsafe now?: No Are you made to feel afraid or neglected: No Are you DNR?: No Advance Directives: No Advance Directives Information Provided: Yes Advance Directives on File: No Recently lost weight without trying: No How much weight loss: Unsure Eating poorly because of decreased appetite: Yes Nutrition screen score: 3 Nutrition Risks: No Nutritional Risk Poor oral hygiene: No service: No Meds Allergies Allergy/AdvReac Type Severity Reaction Status Date / Time codeine AdvReac Mild Vomiting Verified 03/25/24 06:15 bees Allergy Intermediate Anaphylaxis Uncoded 03/25/24 06:16 Active Medications: Current Medications Acetaminophen (Acetaminophen 325 Mg Tablet) 650 mg PO Q6H PRN PRN Reason: Pain, Mild 1-3,fever,headache Last Admin: 03/27/24 20:27 Dose: 650 mg Albuterol/Ipratropium (Albuterol/Iprat 2.5/0.5mg 3 Ml Ampul.Neb) 3 ml INHALE RQ4H WHILE AWAKE [facility] Last Admin: 03/27/24 19:40 Dose: 3 ml Atorvastatin Calcium (Atorvastatin Calcium 40 Mg Tablet) 80 mg PO DAILY [facility] Last Admin: 03/27/24 08:15 Dose: 80 mg Calcium Carbonate (Calcium Carbonate 750 Mg Tab.Chew) 750 mg PO Q4H PRN PRN Reason: Heartburn Last Admin: 03/27/24 20:27 Dose: 750 mg Docusate Sodium (Docusate Sodium 100 Mg Capsule) 100 mg PO BID [facility] Last Admin: 03/27/24 20:27 Dose: 100 mg Heparin Sodium (Porcine) (Heparin Sodium,Porcine 5,000 Unit/Ml Vial) 5,000 unit SUBCUT Q8H [facility] Last Admin: 03/27/24 17:42 Dose: 5,000 unit Magnesium Hydroxide (Milk Of Magnesia 30 Ml Oral.Susp) 30 ml PO DAILY PRN PRN Reason: Constipation Melatonin (Melatonin 3 Mg Tablet) 6 mg PO BEDTIME PRN PRN Reason: Insomnia Morphine Sulfate (Morphine Sulfate 2 Mg/Ml Cartridge) 2 mg IVPUSH Q3H PRN; Protocol PRN Reason: Pain, Severe (Pain Scale 7-10) Last Admin: 03/27/24 20:37 Dose: 2 mg Naloxone HCl (Naloxone Hcl 0.4 Mg/Ml Vial) 0.04 mg IVPUSH Q5M PRN PRN Reason: Excessive sedation or RR < 8 Oxycodone HCl (Oxycodone Hcl Immed Release 5 Mg Tablet) 5 mg PO Q4H PRN PRN Reason: Pain, Moderate(Pain Scale 4-6) Last Admin: 03/27/24 18:43 Dose: 5 mg Sodium Chloride (0.9 % Sodium Chloride Flush 3 Ml Syringe) 3 ml IVFLUSH QSHIFT [facility] Last Admin: 03/27/24 20:27 Dose: 3 ml Home Medications ?Medication ?Instructions ?Recorded ?Confirmed ?Last Taken ?Type aspirin 81 mg chewable tablet 1 tab PO DAILY 01/23/24 03/14/24 03/22/24 History meloxicam 15 mg tablet 15 mg PO DAILY PRN Pain 01/23/24 03/14/24 03/25/24 04:30 History albuterol sulfate 90 mcg/actuation 2 puff inhalation Q4-6H PRN 02/20/24 03/14/24 03/25/24 04:30 History aerosol inhaler Shortness Of Breath Or Wheezing rosuvastatin 20 mg tablet 20 mg PO DAILY 02/20/24 03/14/24 03/25/24 04:30 History tiotropium bromide 18 mcg capsule 1 cap inhalation DAILY 02/20/24 03/14/24 03/25/24 04:30 History with inhalation device (Spiriva with HandiHaler) acetaminophen 500 mg tablet 500 mg PO Q6H PRN Pain 03/14/24 03/14/24 Unknown History Physical Exam Vital Signs and Narrative: Vital Signs: Last Vital Signs Temp 98.7 F 03/27/24 19:18 Pulse 93 03/27/24 19:40 Resp 20 03/27/24 19:40 BP 151/84 H 03/27/24 19:18 Pulse Ox 90 L 03/27/24 19:18 O2 Del Method Room Air 03/27/24 19:18 O2 Flow Rate 2 03/27/24 16:52 Oxygen Flow Rate 40 03/26/24 08:33 BMI result Body Mass Index 22.2 Results Labs 03/27/24 05:29 03/27/24 05:29 Labs: Laboratory Results - last 24 hr 03/27/24 05:29 MCV 87.0 MCH 29.8 MCHC 34.2 RDW 13.8 Plt Count 180 MPV 8.5 L Immature Gran % (Auto) 0.8 H Neut % (Auto) 70.3 Lymph % (Auto) 20.5 [place] % (Auto) 7.2 Eos % (Auto) 0.8 Baso % (Auto) 0.4 Lymph # (Auto) 1.6 [place] # (Auto) 0.5 Eos # (Auto) 0.1 Baso # (Auto) 0.0 Abs Immat Gran (auto) 0.06 H Absolute Neuts (auto) 5.3 Absolute Nucleated RBC 0.000 Nucleated RBC % (auto) 0.0 Anion Gap 10 L Estim Creat Clear Calc 125.8 Estimated GFR > 60 Random Glucose 95 Calcium 7.8 L Albumin 2.6 L Assessment and Plan (1) Aortoiliac occlusive disease: Status: Chronic (2) PAD (peripheral artery disease): Status: Chronic (3) COPD (chronic obstructive pulmonary disease): Status: Chronic (4) Nicotine dependence, cigarettes, uncomplicated: Status: Chronic Plan 58-year-old gentleman who is a chronic smoker previously smoked about 3 ppd now reduced to 1 PPD, social alcoholic drinks about 1-2 beers every night with past medical history of CAD with MS in 2018, peripheral artery disease, aorto occlusive disease, COPD presented to the hospital for an elective open aortofemoral bypass by Dr. Sierra. He underwent the procedure successfully, no complications on 03/25/2024. S/p open aortofemoral bypass - plan per surgery - incentive spirometry - continue pain management with p.o. oxycodone and as needed IV morphine Anemia - slight drop in hemoglobin to 12.5 which has been stable, no obvious bleeding or hematoma - follow CBC COPD - no home medications, no respiratory complaints currently - DuoNebs as needed alcohol abuse - risk for alcohol withdrawal as he is a daily drinker - continue to monitor CIWA, no recent elevated scores tobacco abuse - smoking cessation discussed - patient declined nicotine patch Thank you for allowing me to participate in the pt's care. Signing off for now. Please contact the medical team if any questions or concerns.
[2024-03-28] VITALS (14 sets, daily range): BP systolic 122–158; BP diastolic 70–84; PULSE 73–132; RESP 18–20; TEMP 36.2–37; O2SAT 83–97; BMI 22.1
[2024-03-28] MEDS: ondansetron HCL 4 MG/2 ML VIAL IVPUSH (00:12)
[2024-03-28] MEDS: Morphine Sulfate 2 MG/ML CARTRIDGE IVPUSH ×2 (02:39→05:50)
[2024-03-28] MEDS: Acetaminophen 325 MG TABLET 650 MG PO ×3 (02:39→18:22)
[2024-03-28] MEDS: oxyCODONE HCl Immed Release 5 MG TABLET PO ×5 (03:32→21:07)
--- NOTE | 2024-03-28 06:16 | PC.NURSE ---
Pt AOx4, able to make needs known. When this RN came onto shift, pt had recently been medicated w/PRN oxycodone. Pt utilized call lazo and this RN entered pt's room. Pt proceeded to tell this RN his pain was uncontrolled, he was having trouble breathing. Pt was placed on 2L O2 via NC w/good effect. We discussed available pain medication options. Even though pt was reporting pain 8-9/10 he was not due for his PRN oxycodone or morphine. Pt requested PRN Tylenol until his next PRN morphine was available even though it was not written for his 8-9/10 pain (comment was made on med administration page). Pt said he I just want something to hold me over until I can get the morphine . Pt stated to this RN The doctor is very upset that my pain is not being managed and said it would impact my healing and going home. Bed alarm on, call lazo within reach.
[2024-03-28] MEDS: Albuterol/Iprat 2.5/0.5MG 3 ML AMPUL.NEB INHALE ×4 (07:45→19:17)
[2024-03-28] MEDS: Docusate Sodium 100 MG CAPSULE PO (08:14)
[2024-03-28] MEDS: Heparin Sodium,Porcine 5,000 UNIT/ML VIAL 5000 UNIT SUBCUT ×2 (08:14→16:59)
[2024-03-28] MEDS: 0.9 % Sodium Chloride Flush 3 ML SYRINGE IVFLUSH ×2 (08:15→17:00)
[2024-03-28] MEDS: Atorvastatin Calcium 40 MG TABLET 80 MG PO (08:15)
--- NOTE | 2024-03-28 09:01 | HO.VASCPN ---
Subjective Subjective Date of Service: 03/28/24 Interval history: Jabier is doing well this morning. He states his pain is about a 6/10. He states he just received some pain medications prior to my visit. He is eating well and tolerating a liquid diet. He states he was just moved up to the telemetry floor last night around 8. He was OOB to the chair in the ICU yesterday and tolerated it well. He denies chest pain, difficulty breathing, and shortness of breath. He denies any difficulty urinating. Physical Exam Vital Signs: Vital Signs: Last Vital Signs Temp 97.1 F 03/28/24 07:46 Pulse 75 03/28/24 07:48 Resp 20 03/28/24 07:48 BP 154/82 H 03/28/24 07:46 Pulse Ox 97 03/28/24 07:46 O2 Del Method Nasal Cannula 03/28/24 07:46 O2 Flow Rate 1 03/28/24 07:46 Oxygen Flow Rate 40 03/26/24 08:33 BMI result Body Mass Index 22.1 Const: General: comfortable and no acute distress Orientation/consciousness: patient oriented x3 HEENT: Ears: hearing grossly normal bilaterally Resp: Effort & Inspection: normal respiratory effort and able to speak in complete sentences Auscultation: clear to auscultation bilaterally Cardio: Rate: regular rate Rhythm: regular rhythm Heart sounds: S1 normal heart sound present and S2 normal heart sound present Bruits: no abdominal aortic bruits, no carotid bruits, no femoral bruits and no renal bruits GI: Other: Abdominal incision site: Clean, dry, and intact. No signs Palpation (GI): No Abdominal aortic bruit present : Other: Bilateral femoral incision sites: Clean, dry, and intact. No signs of infection noted Neuro: General: patient oriented x3 Cranial nerves: Yes CN's II-XII intact bilaterally Extrem: Other: Right lower extremity: Warm to the touch. Palpable DP and PT pulses. Left lower extremity: Warm to the touch. Palpable PT pulses. Progress Note: A&P Assessment and plan (1) Aortoiliac occlusive disease: Status: Chronic Assessment and Plan: Jabier is doing well this morning. We will encourage him to get out of bed and ambulate with the assistance. We have ordered a physical therapy consult. We will appreciate their recommendations. We have changed his liquid diet to a regular diet, normal consistency. We will discontinue the IV Morphine and continue with p.o. Oxycodone and Tylenol for pain management. We have added on MiraLax for a bowel regimen and we will discontinue the Colace. His IV fluids have been discontinued. We will continue to monitor. There are any questions or concerns, please do not hesitate to reach out to us. Time Spent With Patient Time: Total time managing care of this patient today ____ minutes. Procedures Date of Service Date of Service: 03/28/24 Quality Stroke Does the patient have a stroke diagnosis?: No VTE Prior VTE?: No VTE Risk Level:: Surgical - low VTE Device Contraindication: Procedure Contraindicated VTE Drug Contraindication: N/A - Med Ordered
[2024-03-28] MEDS: polyethylene glycoL 3350 17 GM POWD.PACK PO (09:08)
[2024-03-28] MEDS: Calcium Carbonate 750 MG TAB.CHEW PO ×2 (16:59→21:07)
[2024-03-29] VITALS (8 sets, daily range): BP systolic 124–146; BP diastolic 73–80; PULSE 78–96; RESP 16–20; TEMP 36.7–37.2; O2SAT 91–96; BMI 21.2
[2024-03-29] MEDS: Heparin Sodium,Porcine 5,000 UNIT/ML VIAL 5000 UNIT SUBCUT ×3 (01:03→17:31)
[2024-03-29] MEDS: Melatonin 3 MG TABLET 6 MG PO (01:05)
[2024-03-29] MEDS: Acetaminophen 325 MG TABLET 650 MG PO ×4 (01:06→19:31)
[2024-03-29] MEDS: oxyCODONE HCl Immed Release 5 MG TABLET PO ×6 (01:08→21:31)
[2024-03-29] MEDS: Calcium Carbonate 750 MG TAB.CHEW PO (01:09)
[2024-03-29] MEDS: 0.9 % Sodium Chloride Flush 3 ML SYRINGE IVFLUSH ×3 (01:15→17:35)
[2024-03-29] MEDS: ondansetron HCL 4 MG/2 ML VIAL IVPUSH ×2 (01:15→17:45)
[2024-03-29] MEDS: Atorvastatin Calcium 40 MG TABLET 80 MG PO (07:27)
[2024-03-29] MEDS: Albuterol/Iprat 2.5/0.5MG 3 ML AMPUL.NEB INHALE ×3 (08:04→19:38)
[2024-03-29] MEDS: bisacodyL 10 MG SUPP.RECT PR (08:37)
[2024-03-29] MEDS: polyethylene glycoL 3350 17 GM POWD.PACK PO ×2 (08:38→17:35)
--- NOTE | 2024-03-29 09:16 | P.PNVS_ITS ---
Subjective Subjective Date of Service: 03/29/24 Interval history: Jabier is doing well this morning. He states his pain has been very well controlled and actually is not in any pain this morning. He states he is eating, but is having a decreased appetite and states his GERD has been acting up as well. He has been getting out of the bed into the chair for most of the day. He was able to walk with a walker assisted yesterday up and down the hallways for quite a bit of a time and tolerated it well. He can urinate well, he states he is using the bathroom. He has not had any bowel movements yet but has been having flatus. Physical Exam Vital Signs: Vital Signs: Last Vital Signs Temp 98.2 F 03/29/24 07:32 Pulse 88 03/29/24 08:05 Resp 16 03/29/24 08:05 BP 140/79 H 03/29/24 07:32 Pulse Ox 92 03/29/24 07:32 O2 Del Method Room Air 03/29/24 07:57 O2 Flow Rate 1 03/29/24 03:31 Oxygen Flow Rate 40 03/26/24 08:33 BMI result Body Mass Index 21.2 Const: General: comfortable and no acute distress Orientation/consci ousness: patient oriented x3 HEENT: Ears: hearing grossly normal bilaterally Resp: Effort & Inspection: normal respiratory effort and able to speak in complete sentences Auscultation: clear to auscultation bilaterally Cardio: Rate: regular rate Rhythm: regular rhythm Heart sounds: S1 normal heart sound present and S2 normal heart sound present Bruits: no abdominal aortic bruits, no carotid bruits, no femoral bruits and no renal bruits GI: Other: Abdominal incision C/D/I, no bleeding or discharge noted. Abd tender to palpation but soft. Palpation (GI): No Abdominal aortic bruit present Neuro: General: patient oriented x3 Cranial nerves: Yes CN's II-XII intact bilaterally Progress Note: A&P Assessment and plan (1) Aortoiliac occlusive disease: Status: Chronic Assessment and Plan: Jabier is postop day 4 from an aortoiliac bifem bypass. He has been doing very well and his pain is well controlled. He is eating, but states he has decreased appetite and is not eating as much as he usually does. He has been getting out of bed and did ambulate with the assistance yesterday. Case management is working with [place] [facility] for services at home. We have added increased bowel regimen to try to get the patient to have a bowel movement. We will continue with the current pain management regimen. We will have him continue to get out of bed and ambulate with the assistance. We have strongly encouraged him to increase his p.o. intake. We will continue to monitor. There are any questions or concerns, please do not hesitate to reach out to us. Time Spent With Patient Time: Total time managing care of this patient today ____ minutes. Procedures Date of Service Date of Service: 03/29/24 Quality Stroke Does the patient have a stroke diagnosis?: No VTE Prior VTE?: No VTE Risk Level:: Surgical - low VTE Device Contraindication: Procedure Contraindicated VTE Drug Contraindication: N/A - Med Ordered
--- NOTE | 2024-03-29 16:04 | MHC.CM.PN ---
PT NOT YET MEDICALLY CLEARED DCP HOME WITH [facility] FOLLOWING
[2024-03-30] VITALS (10 sets, daily range): BP systolic 124–145; BP diastolic 69–81; PULSE 80–95; RESP 16–18; TEMP 36.2–37.3; O2SAT 90–95; BMI 20.6
[2024-03-30] MEDS: Acetaminophen 325 MG TABLET 650 MG PO ×4 (01:32→22:15)
[2024-03-30] MEDS: oxyCODONE HCl Immed Release 5 MG TABLET PO ×6 (01:33→22:49)
[2024-03-30] MEDS: Heparin Sodium,Porcine 5,000 UNIT/ML VIAL 5000 UNIT SUBCUT ×3 (01:34→16:18)
[2024-03-30] MEDS: Albuterol/Iprat 2.5/0.5MG 3 ML AMPUL.NEB INHALE ×3 (08:21→20:43)
[2024-03-30] MEDS: Atorvastatin Calcium 40 MG TABLET 80 MG PO (08:47)
[2024-03-30] MEDS: polyethylene glycoL 3350 17 GM POWD.PACK PO ×2 (08:47→20:25)
[2024-03-30] MEDS: 0.9 % Sodium Chloride Flush 3 ML SYRINGE IVFLUSH ×4 (08:50→20:26)
--- NOTE | 2024-03-30 09:57 | HO.VASCPN ---
Subjective Subjective Date of Service: 03/30/24 Patient reports: flatus and no bowel movement Interval history: Very pleasant 58-year-old gentleman postop day 5 status post aortobifem. Doing fairly well. Pain appears to be well controlled. Has been up ambulating with the assistance of a walker and physical therapy. Reports that walking is significantly better and he can actually feel his feet. He is passing flatus has not had bowel movement as of yet. He is tolerating a regular diet. Physical Exam Vital Signs: Vital Signs: Last Vital Signs Temp 98.0 F 03/30/24 07:26 Pulse 93 03/30/24 08:22 Resp 16 03/30/24 08:22 BP 138/76 03/30/24 07:26 Pulse Ox 92 03/30/24 07:26 O2 Del Method Room Air 03/30/24 07:26 O2 Flow Rate 1 03/30/24 04:00 Oxygen Flow Rate 40 03/26/24 08:33 BMI result Body Mass Index 20.6 Const: General: cooperative, healthy appearing and comfortable Orientation/consciousness: oriented to person, oriented to place and oriented to time HEENT: Head: Yes normal to inspection Neck: Neck: Yes normal visual inspection Carotids: no bruits Chest: Chest palpation & inspection: normal inspection of the chest Resp: Effort & Inspection: normal respiratory effort and able to speak in complete sentences Auscultation: clear to auscultation bilaterally, no crackles, no rales, no rhonchi and no wheezes Cardio: Rate: regular rate Rhythm: regular rhythm Heart sounds: S1 normal heart sound present and S2 normal heart sound present Bruits: no carotid bruits Peripheral pulses: Peripheral pulses 2+ throughout GI: Inspection: Yes normal to inspection Skin: Other: Midline incision in bilateral groins well healing incision line is clean no erythema Wounds: no wounds Hair: normal Neuro: General: oriented to person, oriented to place and oriented to time Cranial nerves: Yes CN's II-XII intact bilaterally and Yes Normal hearing present Cognition (Neuro): normal cognition Motor exam (neuro): 5/5 motor strength present throughout Extrem: Other: venous exam: No significant superficial varicosities or spider telangiectasias, minimal edema General: No clubbing, No cyanosis and No edema Psych: Appearance: grossly normal Mental Status: mental status grossly normal Speech and movement: Normal speech and movement present Progress Note: A&P Assessment and plan (1) Aortoiliac occlusive disease: Status: Chronic Plan In short doing well status post aortobifem. Would continue ambulation. Bowel regimen. Once has bowel movement and we can coordinate visiting nurse services stable for discharge. We will continue to monitor his status. Thank you to the hospitalist for their assistance in his care. Time Spent With Patient Time: Total time managing care of this patient today ____ minutes. Procedures Date of Service Date of Service: 03/30/24 Quality Stroke Does the patient have a stroke diagnosis?: No VTE Prior VTE?: No VTE Risk Level:: Surgical - low VTE Device Contraindication: Procedure Contraindicated VTE Drug Contraindication: N/A - Med Ordered
[2024-03-30] MEDS: bisacodyL 10 MG SUPP.RECT PR (12:06)
[2024-03-31] VITALS (11 sets, daily range): BP systolic 139–166; BP diastolic 70–87; PULSE 82–109; RESP 16–18; TEMP 36–36.6; O2SAT 91–95; BMI 20.8
[2024-03-31] MEDS: oxyCODONE HCl Immed Release 5 MG TABLET PO ×5 (02:50→21:05)
[2024-03-31] MEDS: Heparin Sodium,Porcine 5,000 UNIT/ML VIAL 5000 UNIT SUBCUT ×3 (02:51→16:49)
[2024-03-31] MEDS: Acetaminophen 325 MG TABLET 650 MG PO ×4 (04:33→23:34)
[2024-03-31] MEDS: polyethylene glycoL 3350 17 GM POWD.PACK PO ×2 (07:26→20:31)
[2024-03-31] MEDS: Atorvastatin Calcium 40 MG TABLET 80 MG PO (07:26)
[2024-03-31] MEDS: 0.9 % Sodium Chloride Flush 3 ML SYRINGE IVFLUSH ×3 (07:31→20:32)
[2024-03-31] MEDS: Albuterol/Iprat 2.5/0.5MG 3 ML AMPUL.NEB INHALE ×4 (07:51→20:16)
[2024-03-31] MEDS: Milk of Magnesia 30 ML ORAL.SUSP PO (10:15)
--- NOTE | 2024-03-31 10:17 | PC.NURSE ---
No BM yet, PRN milk of magnesium given.
[2024-04-01] MEDS: oxyCODONE HCl Immed Release 5 MG TABLET PO ×4 (01:07→13:37)
[2024-04-01] MEDS: Heparin Sodium,Porcine 5,000 UNIT/ML VIAL 5000 UNIT SUBCUT ×2 (01:08→07:53)
[2024-04-01 02:52] VITALS: BP 128/60; PULSE 88; RESP 18; TEMP 36.3; O2SAT 93
[2024-04-01] MEDS: Acetaminophen 325 MG TABLET 650 MG PO ×2 (05:32→13:38)
[2024-04-01 07:27] VITALS: BP 155/75; PULSE 84; RESP 16; TEMP 36; O2SAT 95
[2024-04-01] MEDS: polyethylene glycoL 3350 17 GM POWD.PACK PO (07:51)
[2024-04-01] MEDS: 0.9 % Sodium Chloride Flush 3 ML SYRINGE IVFLUSH (07:51)
[2024-04-01] MEDS: Atorvastatin Calcium 40 MG TABLET 80 MG PO (07:52)
[2024-04-01] MEDS: Albuterol/Iprat 2.5/0.5MG 3 ML AMPUL.NEB INHALE ×2 (08:00→11:17)
[2024-04-01 08:02] VITALS: PULSE 84; RESP 16; O2SAT 94
[2024-04-01 11:18] VITALS: PULSE 92; RESP 16; O2SAT 94
[2024-04-01 12:00] VITALS: BP 159/82; PULSE 99; RESP 18; TEMP 36.8; O2SAT 92
--- NOTE | 2024-04-01 12:44 | PC.NURSE ---
Plan d/c, pt had BM today.
--- NOTE | 2024-04-01 12:53 | P.DS_ITS ---
DS: Providers Provider Date of Service: 04/01/24 Date of admission: 03/25/24 12:26 Date of discharge: 04/01/24 Primary care physician: Jaja Garcia MD Consults: 03/27/24 08:18 Consult to Hospitalist Routine Comment: Consulting Provider: [facility] [place] Reason For Exam: s/p aortoiliac bifem bypass DS: Diagnosis Discharge Diagnosis (1) Aortoiliac occlusive disease: Status: Chronic DS: Summary Hospital Course Hospital Course: Jabier is post op day 7 from an aortoiliac bifem bypass done last Monday. He has been doing well. He continues with a decreased appetite but is drinking water. He continues to ambulate with assistance and gets OOB to the chair. His pain has been well controlled. He was finally able to have a BM today and is ready for discharge home today. We had a lengthy discussion about taking it slow and the importance of a well balanced healthy diet with good protein intake. We discussed the importance of smoking cessation. We discussed to keep the incision sites clean and dry. We have a follow up scheduled already. I discussed with him that if he had any questions or concerns, not to hesitate to reach out to our office. I will also be sending 7 days of Oxy 5mg to his pharmacy for pain management. We encourage him to continue using Tylenol for pain control as well. Time Attestation Discharge Coordination Time (in mins): 45 Quality: Safe Use of Opioids Does Pt have an Active Cancer Diagnosis on the Problem List?: No Quality: Stroke Does the patient have a stroke diagnosis?: No Physical Exam Vital Signs: Vital Signs: Last Vital Signs Temp 98.2 F 04/01/24 12:00 Pulse 99 04/01/24 12:00 Resp 18 04/01/24 12:00 BP 159/82 H 04/01/24 12:00 Pulse Ox 92 04/01/24 12:00 O2 Del Method Room Air 04/01/24 12:00 O2 Flow Rate 1 03/30/24 04:00 Oxygen Flow Rate 40 03/26/24 08:33 BMI result Body Mass Index 20.8 Const: General: comfortable and no acute distress Orientation/consciousness: patient oriented x3 HEENT: Ears: hearing grossly normal bilaterally Resp: Effort & Inspection: normal respiratory effort and able to speak in complete sentences Auscultation: clear to auscultation bilaterally Cardio: Rate: regular rate Rhythm: regular rhythm Heart sounds: S1 normal heart sound present and S2 normal heart sound present Bruits: no abdominal aortic bruits, no carotid bruits, no femoral bruits and no renal bruits GI: Other: Abd incision site: C/D/I, no signs of infection. Abd soft, non tender to palpation. Normoactive bowel sounds. Palpation (GI): No Abdominal aortic bruit present Neuro: General: patient oriented x3 Cranial nerves: Yes CN's II-XII intact bilaterally Extrem: Other: Palpable DP and PT pulses in right foot, palpable PT pulses in left foot. Both feet warm and pink. DS: Data Data Completed and Pending Completed studies during hospitalization [Text1]: Pending at discharge 03/25/24 10:26 Surgical [PTH] Routine Discharge Plan Discharge Anticipated Discharge Date/Time: 04/01/24 13:12 Patient Disposition: Home Health Service Discharge Diagnosis: s/p aortoiliac bifem bypass Referrals: [facility] ALBERT [Outside] - 1 Week Jaja Garcia MD [Primary Care Provider] - 1 Week Discharge Medications: New oxycodone 5 mg tablet 5 mg PO TID PRN (Reason: pain) Qty: 20 0RF Rx Instructions: Partial Fill upon patient request. Continued acetaminophen 500 mg Tablet 500 mg PO Q6H PRN (Reason: Pain) aspirin 81 mg tablet,chewable 1 tab PO DAILY meloxicam 15 mg tablet 15 mg PO DAILY PRN (Reason: Pain) tiotropium bromide [Spiriva with HandiHaler] 18 mcg capsule, w/inhalation device 1 cap inhalation DAILY albuterol sulfate 90 mcg/actuation HFA aerosol inhaler 2 puff inhalation Q4-6H PRN (Reason: Shortness Of Breath Or Wheezing) rosuvastatin 20 mg tablet 20 mg PO DAILY fluticasone furoate-vilanterol [Breo Ellipta] 100-25 mcg/dose blister with device 1 inh inhalation DAILY Qty: 60 3RF Discharge Orders: Discharge Order (Routine); Ordered 04/01/24 Ordered By: Concha Rivas Activity on Discharge: As tolerated Stand Alone Forms: Patient Portal Discharge page Print Language: Mexican Care Plan Goals: Continue with smoking cessation. Increase well balanced, healthy diet. Health Concerns: Continue with smoking cessation. Increase protein intake. Increase water intake. Plan of Treatment: Follow up in the office in 2 weeks. Keep surgical incisions clean and dry. Assessment: s/p aortoiliac bifem bypass
--- NOTE | 2024-04-01 13:15 | P.F2F_ITS ---
Service Date Service Date: 04/01/24 Encounter Date of encounter: 04/01/24 Reasons for Services Signs and symptoms assessed: Pt is s/p open aortoiliac bifem bypass. He will need nursing home at home as well as physical therapy due to weakness and for wound care. Reason for nursing home: wound care Reason for physical therapy: home safety and mobility and gait/transfer training Homebound: Leaving the home is medically contraindicated at this time without the asist of a device and/or another person due th the listed conditions above and below. Reason homebound: weakness related to hospital stay Certification: Based on the above findings, I certify that this patient is confined to the home and needs intermittent nursing home care, physical therapy and/or speech therapy, or continues to need occupational therapy. The patient is under my care, and I have initiated the establishment of the plan of care. The patient will be followed by a physician who will periodically review the plan of care. Time Spent With Patient Time: Total time managing care of this patient today __45__ minutes.
--- NOTE | 2024-04-01 13:28 | MHC.CM.PN ---
IMM 04/01/24 S/P Aortoilic Fempop bipass. He is discharged today to home. [facility] will provide SN+ PT services. He has arranged for a ride home.
== END 2024-04-01 14:38 | disposition home health service (06) | DRG 269 ==
LOC: HO.SSSA 12:26 → HO.ICU 13:52 → HO.IMC 03-27 16:50 → HO.S3 03-28 16:46
PROVIDERS: Nurse Practitioner; Nurse Practitioner Family; Physician Assistant Surgical; Admitting Provider Surgery Vascular Surgery; PCP Family Medicine; Visit Provider Surgery Vascular Surgery
PROC: 04C00ZZ Extirpation of Matter from Abdominal Aorta, Open Approach (ICD-10-PCS; principal; 2024-03-25 07:30)
DX: I74.09 Other arterial embolism and thrombosis of abdominal aorta (principal); I74.5 Embolism and thrombosis of iliac artery; F10.10 Alcohol abuse, uncomplicated; J44.9 Chronic obstructive pulmonary disease, unspecified; D64.89 Other specified anemias; F17.210 Nicotine dependence, cigarettes, uncomplicated; Z71.6 Tobacco abuse counseling; Z79.51 Long term (current) use of inhaled steroids; Z79.82 Long term (current) use of aspirin; Z79.899 Other long term (current) drug therapy
CPT/HCPCS: 36415; 80048; 80053; 82040; 85025; 85027; 85610; 85730; 86850; 86900; 86901; 88304; 88311; 94640; 97162; A4649; C1758; C1768; C9250; J0131; J0690; J1100; J1171; J1644; J2003; J2250; J2270; J2305; J2371; J2405; J2704; J2795; J3010; J7120; P9047

== ENCOUNTER → 2024-03-25 12:26 | Outpatient (BNV) | payer MEDICARE, SELFPAY | PROVIDERS: Admitting Provider Surgery Vascular Surgery; PCP Family Medicine; Visit Provider Internal Medicine Critical Care Medicine | DX: J44.9 Chronic obstructive pulmonary disease, unspecified (principal); I73.9 Peripheral vascular disease, unspecified; I74.09 Other arterial embolism and thrombosis of abdominal aorta; R06.00 Dyspnea, unspecified | CPT/HCPCS: 99222; 99232 ==

== ENCOUNTER → 2024-03-25 12:26 | Outpatient (BNV) | payer MEDICARE, SELFPAY | PROVIDERS: Admitting Provider Surgery Vascular Surgery; PCP Family Medicine; Visit Provider Physician Assistant | DX: I74.09 Other arterial embolism and thrombosis of abdominal aorta (principal); I73.9 Peripheral vascular disease, unspecified; J44.9 Chronic obstructive pulmonary disease, unspecified; F17.210 Nicotine dependence, cigarettes, uncomplicated | CPT/HCPCS: 99222 ==

== ENCOUNTER → 2024-03-25 12:26 | Outpatient (BNV) | payer MEDICARE, SELFPAY | PROVIDERS: Admitting Provider Surgery Vascular Surgery; PCP Family Medicine; Visit Provider Surgery Vascular Surgery | DX: I74.09 Other arterial embolism and thrombosis of abdominal aorta (principal) | CPT/HCPCS: 35646 ==

== ENCOUNTER 2024-04-09 08:47 | Outpatient (AMB) | payer OTHER, SELFPAY ==
--- NOTE | 2024-04-09 08:54 | A.OFFVIS_ITS ---
Intake Visit Reasons: 2w follow up s/p Aorto Bi-Femoral Bypass 03/25/24 Intake Note: 2 week follow up Aorto Bi-Femoral Bypass 03/25/24, Pt states he has a large lump in the left groin. Pt states he stopped pain medications since discharged and also stopped smoking since surgeries. Accompanied by: Self / Same As Patient Allergies codeine Adverse Reaction (Mild, Verified 04/09/24 08:58) Vomiting bees Allergy (Intermediate, Uncoded 04/09/24 08:58) Anaphylaxis HPI HPI 2w follow up s/p Aorto Bi-Femoral Bypass 03/25/24: Details: 58-year-old gentleman presents for follow-up status post open aortobifem. He has done extremely well postprocedure. He was discharged postop day 7. At the current time reports that his lower extremities feel well and he is able to ambulate with no difficulty. He reports he can actually feel the floor. He is tolerating a regular diet and having normal bowel movements. He now presents for postoperative follow-up. [facility] Medical History Aortoiliac occlusive disease PAD (peripheral artery disease) Smoker COPD (chronic obstructive pulmonary disease) Pulmonary nodules History of femoral angiogram (02/07/24) Hx: bad fall (~2021) HLD (hyperlipidemia) Heart attack (~2017) Surgical History Hx of myringotomy Hx of tonsillectomy History of surgery on lower extremity (~2003) H/O tooth extraction Family History Mother History of quadruple bypass Father Aneurysm Social History (Updated 04/09/24 @ 08:59 by RADHA Kingsley) Household Members: None Housing: House Are you a primary care professionals to a significant other at home: No Do you presently have visiting nurse or other home services: No 75 years or older and lives alone: No Alcohol intake: current Alcohol intake frequency: a few times a week Alcohol type: beer Comment: aware of trip hazard Patient Tobacco Use Status: Former Tobacco user Tobacco use type: Cigarette Cigarette Packs Per Day: 1 Cigarettes Per Day: 1 Years Smoked: 40 e-Cigarette/Vaping Use: Never Used Second Hand Smoke Exposure: No Substance Use Type: Marijuana service: No Review of Systems Const All systems reviewed & are unremarkable except as noted in HPI and below Reports no additional complaints ENT Reports Normal hearing present Card Denies chest pain, Denies chest pain at rest, Denies chest pain with activity and Denies pedal edema Resp Denies cough GI Denies abdominal pain Musc Denies abnormal gait, Denies muscle cramps and Denies radiating pain into limb Skin/Breast Denies skin ulcer and Denies wounds Neuro Reports Normal hearing present and Denies abnormal gait Psych Reports no additional complaints Physical Exam Const General: cooperative, healthy appearing and comfortable Orientation/consciousness: oriented to person, oriented to place and oriented to time HEENT Head: Yes normal to inspection Neck Neck: Yes normal visual inspection Carotids: no bruits Chest Chest palpation & inspection: normal inspection of the chest Resp Effort & Inspection: normal respiratory effort and able to speak in complete sentences Auscultation: clear to auscultation bilaterally, no crackles, no rales, no rhonchi and no wheezes Cardio Rate: regular rate Rhythm: regular rhythm Heart sounds: S1 normal heart sound present and S2 normal heart sound present Bruits: no carotid bruits Peripheral pulses: Peripheral pulses 2+ throughout GI Inspection: Yes normal to inspection Skin Other: Incisions of abdomen and groin well healed. Jean-Paul removed Wounds: no wounds Hair: normal Neuro General: oriented to person, oriented to place and oriented to time Cranial nerves: Yes CN's II-XII intact bilaterally and Yes Normal hearing present Cognition (Neuro): normal cognition Motor exam (neuro): 5/5 motor strength present throughout Extrem Other: venous exam: No significant superficial varicosities or spider telangiectasias, minimal edema General: No clubbing, No cyanosis and No edema Psych Appearance: grossly normal Mental Status: mental status grossly normal Speech and movement: Normal speech and movement present Assessment & Plan Assessment & Plan (1) Aortoiliac occlusive disease: Comment: 03/25/2024 - open aortobifem bypass Code(s): I74.09 - Other arterial embolism and thrombosis of abdominal aorta Category: Medical Plan: In short patient has done well status post aortobifem bypass. We did discuss risk factor modification and did congratulate him on stopping smoking. He will remain on aspirin and a statin. He will follow up with us in approximately 3 months time for routine surveillance follow-up. Thank you for allowing us to assist in his care. If there are any questions or concerns please do not hesitate to contact us. Orders: Orders US abdominal aortic aneurysm 3 Months I74.09 - Other arterial embolism and thrombosis of abdominal aorta Coding Level of Care Code Est Pt Level 4 (47153) Diagnoses Aortoiliac occlusive disease I74.09
== END 2024-04-09 09:33 | disposition home or self-care (01) ==
PROVIDERS: PCP Family Medicine; Visit Provider Surgery Vascular Surgery
DX: I74.09 Other arterial embolism and thrombosis of abdominal aorta (principal)
CPT/HCPCS: 99024

== ENCOUNTER → 2024-04-09 08:47 | Outpatient (BNVA) | payer OTHER, SELFPAY | PROVIDERS: PCP Family Medicine; Visit Provider Surgery Vascular Surgery ==

== ENCOUNTER 2024-04-12 07:31 | Outpatient (REF) | payer OTHER, SELFPAY ==
--- NOTE | ~2024-04-12 | CT_ITS ---
CLINICAL HISTORY: F17.210 - Nicotine dependence, cigarettes, uncomplicated CT chest without contrast Comparison: None Findings: The heart is normal size. The visualized thyroid and mediastinum are unremarkable. There is bilateral scarring or subsegmental atelectasis most pronounced in the left lower lobe. There is diffuse interstitial nodular consolidation, acuity indeterminate. Differential considerations would include infectious including atypical infection such as mycobacterial or fungal, granulomatous disease, with neoplastic or vascular disease felt slightly less likely with no distinguishing characteristics of the punctate nodules. Comparison with any prior studies, if available, would be of value. Clinical and laboratory correlation recommended. The upper abdomen is unremarkable. The bones are intact. IMPRESSION: 1. Diffuse interstitial nodular consolidation, differential considerations noted. Comparison with prior studies, if available, would be of value. Clinically appropriate follow-up likely in consultation with pulmonology recommended.. This document has been electronically signed by: Juancarlos Gamble MD on 04/13/2024 07:32:10
== END 2024-04-12 07:32 | disposition home or self-care (01) ==
LOC: HO.CT 07:31
PROVIDERS: PCP Family Medicine; Visit Provider Nurse Practitioner Family
DX: J44.9 Chronic obstructive pulmonary disease, unspecified (principal); F17.210 Nicotine dependence, cigarettes, uncomplicated
CPT/HCPCS: 71250

== ENCOUNTER → 2024-04-12 07:40 | Outpatient (BNV) | payer OTHER, SELFPAY | PROVIDERS: PCP Family Medicine; Visit Provider Specialist | DX: J84.89 Other specified interstitial pulmonary diseases (principal) | CPT/HCPCS: 71250 ==

== ENCOUNTER 2024-06-19 08:32 | Outpatient (REF) | payer OTHER, SELFPAY ==
--- NOTE | ~2024-06-19 | CT_ITS ---
EXAMINATION: CT CHEST WITHOUT IV CONTRAST INDICATION: J18.1 - Lobar pneumonia, unspecified organism COMPARISON: Comparison is made with the prior examination dated 04/12/2024. TECHNIQUE: Helical CT scan of the chest was performed without intravenous contrast. Coronal and sagittal reformatted images were generated and reviewed. This CT exam was performed with one or more of the following dose reduction techniques: automated exposure control, adjustment of the mA and/or kV according to patient size, use of iterative reconstruction technique. DLP: 154 mGy-cm CHEST: THYROID: The thyroid is unremarkable. LUNGS: There are mild emphysematous changes. Multiple tiny calcified granulomas are noted throughout both lungs. The lungs are otherwise clear. The previously seen interstitial and airspace opacities in both lungs have resolved. MEDIASTINUM: Again seen are mediastinal lymph nodes which measure less than 10 mm in maximum short axis dimension. SIMONE: Evaluation of the hilar regions is limited by lack of intravenous contrast material. CARDIOVASCULATURE: The heart is normal in size. There is no pericardial effusion. The thoracic aorta is normal in caliber. DEGREE OF CORONARY CALCIFICATION: moderate PLEURA: There is no pleural effusion. No pneumothorax. MAIN AIRWAYS: The mainstem bronchi and proximal branches are patent. AXILLA: There is no axillary lymphadenopathy. BONES AND SOFT TISSUES: Unremarkable UPPER ABDOMEN: The visualized portions of the liver, spleen, and adrenals have an unremarkable unenhanced appearance. CT/CT chest wo IV con IMPRESSION: Mild emphysema. Scattered calcified granulomas. The previously seen interstitial and airspace opacities in both lungs have resolved. Electronically signed by: Chilango Rdz MD 06/19/2024 10:18 AM EDT
--- OUTSIDE RECORDS SUMMARY | 2024-06-19 08:54 | XMS_ITS | Clinical Summary ---
Author Organization [employer] Address [address] [facility] [address] [place] [address] Care Team Providers Care Test Skein Winder Name Role Phone Jaja Garcia MD Primary Care Provider [phone] Allergies Active Allergy Reactions Criticality Noted Date Comments Bee Venom Hives 10/20/2005 Stung by 100+ bees at one time as a child - had severe edema. Never had any issues with bee stings since Codeine 08/23/2017 vomiting Medications acetaminophen (Tylenol) 500 MG tablet Take 100 mg by mouth. Active aspirin 81 MG chewable tablet Chew 1 tablet (81 mg) Once per day. 90 tablet 3 4 Active rosuvastatin (Crestor) 40 MG tablet Take 1 tablet (40 mg) by mouth Once per day. 90 tablet 1 4 Active tiotropium (Spiriva HandiHaler) 18 MCG inhalation capsuleIndicat ions:Obstructi ve lung disease (CMS/HCC) Place 1 capsule (18 mcg) into inhaler and inhale in the morning. 30 capsule 11 4 02/09/20 25 Active meloxicam (Mobic) 15 MG tablet Take 1 tablet (15 mg) by mouth Once per day. 60 tablet 1 4 Active albuterol 108 (90 Base) MCG/ACT inhalerIndicat ions:Obstructi ve lung disease (CMS/HCC) INHALE 2 PUFFS BY MOUTH EVERY 4 HOURS IF NEEDED FOR WHEEZING. 18 g 2 5 Active albuterol 108 (90 Base) MCG/ACT inhalerIndicat ions:Obstructi ve lung disease (CMS/HCC) INHALE 2 PUFFS EVERY 4 HOURS IF NEEDED FOR WHEEZING. 18 g 2 5 06/11/19 25 Discontinued Active Problems Problem Noted Date Diagnosed Date Arthralgia of hip 01/05/2024 Injury of kidney 01/05/2024 Prediabetes 01/05/2024 Upper gastrointestinal hemorrhage 01/05/2024 Shortness of breath on exertion 01/05/2024 Assessment & Plan (01/09/2024 9:50 AM EDT): Reports prior hx of CT, no records. Chronic SALDIVAR/SOB, hx of heavy smoker, ddx COPD vs HF vs other. Will send testing. Hyperpigmented skin lesion 01/05/2024 Screening for lung cancer 01/05/2024 Dyspnea 06/05/2018 Overview (01/05/2024): Nuclear stress test(05/29/18): technically difficult study due to bowel loop artifact which may interfere withinferior wall image and interpratation. Other segments have perfusion defect to suggest ischemia or infarct. Normal left ventricular size and systolic function with LVEF 50% Nuclear stress test(05/29/18): technically difficult study due to bowel loop artifact which may interfere withinferior wall image and interpratation. Other segments have perfusion defect to suggest ischemia or infarct. Normal left ventricular size and systolic function with LVEF 50% PVD (peripheral vascular disease) 11/26/2017 Overview (01/05/2024): LE arterial duplex (11/21/17):no hemodynamically significant stenosis in both lower extremities. STEPHENIE : right 1.16, left 9.93, normal range. TBI's : right 0.40, left 0.21 may represent occlusive arterial disease LE arterial duplex (11/21/17):no hemodynamically significant stenosis in both lower extremities. STEPHENIE : right 1.16, left 9.93, normal range. TBI's : right 0.40, left 0.21 may represent occlusive arterial disease Assessment & Plan (01/09/2024 9:50 AM EDT): Patient with no records available for review, reports had imaging done at the start of the year in previous PCP. US from 2018 show left sided concern for occlusive arterial disease, unable to palpate pulses and unable to hear with doppler, will send to vascular and doppler US ordered. Synovitis of right ankle 11/14/2017 Abnormal radionuclide bone scan 10/19/2017 Cervicalgia 08/23/2017 Chronic ankle pain 08/23/2017 Overview (01/05/2024): S/p tib/fib fracture & repair S/p tib/fib fracture & repair Anxiety state 11/15/2005 Tobacco use disorder 11/15/2005 Resolved Problems Problem Noted Date Diagnosed Date Resolved Date Atypical chest pain 01/05/2024 01/05/20 24 Encounters Date Type Department Care Team Description 06/08/2024 Refill [facility] [address] [place] [address] Jaja Garcia MD Obstructive lung disease ([facility]) 04/12/2024 Orders Only [facility] External Provider, [facility] 04/03/2024 Telephone [facility] [address], [place] [phone] Concha Grier RN VNA (Verbal orders needed for [place] [facility]) 04/01/2024 Telephone [facility] [address], [place] [phone] Jaja Garcia MD Verbal Order 03/22/2024 Refill [facility] [address] [place] [address] Jaja Garcia MD Obstructive lung disease ([facility]) from Last 3 Months Immunizations Name Administration Dates Next Due Zoster, Recombinant 05/05/2021,03/01/2021 Social History Tobacco Use Types Packs/Day Years Used Date Smoking Tobacco: Every Day Cigarettes 2 41.2 Started: 03/20/1983 Tobacco Cessation:Ready to Q uit: Not Asked; Counseling Given: Not Answered Alcohol Use Standard Drinks/Week Comments Yes 6 (1 standard drink = 0.6 oz pur e alcohol) Depression Answer Date Recorded Patient Health Questionnaire-9 Score 0 01/05/2024 Patient Health Questionnaire-9 Score 0 01/05/2024 Last PHQ-9: Questionnaire Data Not on file 1 Housing Stability Answer Date Recorded What is your housing situation today? I have keke melissa 12/27/[address] you li ve. Do you have problems with any of the following? None of the above 12/27/2023 Food Insecurity Answer Date Recorded Within the past 12 months, y ou worried that your food would run out before you got money to buy more: Never True 12/27/2023 Within the past 12 months,th e food you bought just didn't last and you didn't have enough money to get more: Never True 11/2023 Transportation Answer Date Recorded In the past 12 months, has l ack of transportation kept you from medical appts, meetings, work or from getting things needed for daily living? No 12/27/2023 Utilities Answer Date Recorded In the past 12 months, has t he electric, gas, oil or water company threatened to shut off services in your home? No 12/27/2023 Depression Answer Date Recorded Patient Health Questionnaire-2 Score 0 01/05/2024 Internet Access Answer Date Recorded Internet Access Q1 Yes 12/27/2023 Internet Access Q2 Not on file 12/27/2023 Sex and Gender Information Value Date Recorded Sex Assigned at Male 10/02/2023 10:40 AM EDT Legal Sex Male 11:04 AM EDT Gender Identity Male 10/02/2023 10:39 AM EDT Sexual Orientation Don't know 10/02/2023 10 :40 AM EDT Last Filed Vital Signs Vital Sign Reading Time Taken Comments Blood Pressure 128/88 02/09/2024 11:01 AM EST Pulse 76 02/09/2024 11:01 AM EST Temperature 36.8 ??C (98.2 ??F) 02/09/2024 11:[address] Respiratory Rate 18 02/09/2024 11:01 AM EST Oxygen Saturation 97% 02/09/2024 11:01 AM EST Inhaled Oxygen Concentration - - Weight 66 kg (145 lb 8 oz) 02/09/2024 11:[address] Height 175.3 cm (5' 9 ) 02/09/2024 11:01 AM EST Body Mass Index 21.49 02/09/2024 11:01 AM EST Plan of Treatment Health Maintenance Due Date Last Done Comments CT Colonography 1965 Colonoscopy 1965 Diabetes: Hemoglobin A1C 1964 FIT 1964 FOBT 1965 HIV Screening 1965 Sigmoidoscopy 1964 Alcohol/Substance Use Screening 1976 Hepatitis C Screening 1982 DTaP/Tdap/Td Vaccines (1 - Tdap) 11/04/1983 Hepatitis B Vaccines (1 of 3 - 19+ 3-dose series) 11/04/1983 Pneumococcal Vaccine: 50+ Years (1 of 2 - PCV) 11/04/1983 Lung Cancer Screening 2014 COVID-19 Vaccine (2023-2 5 season) 2023 03/01/2021, 07/31/2020, 07/10/2020 Influenza Vaccine (#1) 2024 Postp oned from 11/19/2023 (Patient Refused) SDOH Screening 12/26/2024 12/27/2023 Depression Screening 01/04/2025 01/05/2024, 01/05/2024 Tobacco Screening 01/04/2025 01/05/2024 Colorectal Cancer Screening 02/27/2027 FIT DNA/Cologuard 02/27/2027 02/28/2024 Lipid Panel 01/04/2029 01/05/2024 RSV Patients and Patients Aged 60 years or older (1 - 1-dose 75+ series) 11/04/2039 Zoster Vaccines Completed 05/05/2021, 03/01/2021 HIB Vaccines Aged Out No longer eligi ble based on patient's age to complete this topic HPV Vaccines Aged Out No longer eligi ble based on patient's age to complete this topic Hepatitis A Vaccines Aged Out No long er eligible based on patient's age to complete this topic IPV Vaccines Aged Out No longer eligi ble based on patient's age to complete this topic Meningococcal Vaccine Aged Out No harmony krystina eligible based on patient's age to complete this topic RSV under 20 months Aged Out No longe r eligible based on patient's age to complete this topic Rotavirus Vaccines Aged Out No longer eligible based on patient's age to complete this topic Procedures Procedure Name Priority Date/Time Associated Diagnosis Comments CT CHEST WO CONTRAST Routine 04/13/2024 7:32 AM EST LAB COLOGUARD?? COLON CANCER SCREEN Routine 02/28/2024 2:45 PM EST Screening for colon cancer LIPID PANEL, STANDARD Routine 01/05/2024 2:50 PM EDT PVD (peripheral vascular disease) (CMS/HCC) from Last 3 Months or Most Recently Relevant to Health Maintenance Results * CT Chest w/o Contrast (04/13/2024 7:32 AM EST) Anatomical Region Laterality Modality Body, Chest Computed Tomogra phy 04/13/2024 7:32 AM EST Narrative 04/13/2024 7:33 AM EST ? [facility] ?[address] ?[place] [address] ? CT Scan Report ? Signed ? Patient: Jabier Simpson ?MR#: [id number] ?? [id number] ? : 1965 ?Acct:[id number] ? Age/Sex: 58 / M ?ADM Date: 04/12/24 ? Loc: HO.CT ? Attending Dr: Sis Paul CHILDCARE AIDE ? Ordering Physician: Sis Paul NP ?? Date of Service: 04/12/24 ?? Procedure(s): CT chest wo IV con ?? Accession Number(s): [id number] ? cc: Sis Paul NP; Jaja Garcia MD ? Report Number: ?? [id number]: Total DLP = ??134.00 mGy-cm ? CLINICAL HISTORY: F17.210 - Nicotine dependence, cigarettes, uncomplicated ? CT chest without contrast ? Comparison: None ? Findings: ?? The heart is normal size. ?? The visualized thyroid and mediastinum are unremarkable. ? There is bilateral scarring or subsegmental atelectasis most pronounced in ?? the left lower lobe. ?? There is diffuse interstitial nodular consolidation, acuity indeterminate. ?? Differential considerations would include infectious including atypical ?? infection such as mycobacterial or fungal, granulomatous disease, with ?? neoplastic or vascular disease felt slightly less likely with no ?? distinguishing characteristics of the punctate nodules. Comparison with ?? any prior studies, if available, would be of value. Clinical and ?? laboratory correlation recommended. ? The upper abdomen is unremarkable. ?? The bones are intact. ? IMPRESSION: ?? 1. Diffuse interstitial nodular consolidation, differential considerations ?? noted. Comparison with prior studies, if available, would be of value. ?? Clinically appropriate follow-up likely in consultation with pulmonology ?? recommended.. ? This document has been electronically signed by: Juancarlos Gamble MD on ?? 04/13/2024 07:32:10 ? Dictated By: ?Juancarlos Gamble MD ? Signed By: ?<Electronically signed by Juancarlos Gamble MD in OV> ?04/13/24 0732 ? DD/ 1 ? TD/TT: 04/13/24731 ? Military Science Instructor: ? Procedure Note Dontyroneter, Image - 04/13/[address] [place] [address] [address] Scan Report Signed Patient: Jabier Simpson JMR#: [id number] : 1965Acct:[id number] Age/Sex: 58 / MADM Date: 04/12/24 Loc: HO.CT Attending Dr: Sis Paul NP Ordering Physician: Sis Paul NP Date of Service: 04/12/24 Procedure(s): CT chest wo IV con Accession Number(s): [id number] cc: Sis Paul NP; Jaja Garcia MD Report Number: [id number]: Total DLP = 134.00 mGy-cm CLINICAL HISTORY: F17.210 - Nicotine dependence, cigarettes, uncomplicated CT chest without contrast Comparison: None Findings: The heart is normal size. The visualized thyroid and mediastinum are unremarkable. There is bilateral scarring or subsegmental atelectasis most pronounced in the left lower lobe. There is diffuse interstitial nodular consolidation, acuity indeterminate. Differential considerations would include infectious including atypical infection such as mycobacterial or fungal, granulomatous disease, with neoplastic or vascular disease felt slightly less likely with no distinguishing characteristics of the punctate nodules. Comparison with any prior studies, if available, would be of value. Clinical and laboratory correlation recommended. The upper abdomen is unremarkable. The bones are intact. IMPRESSION: 1. Diffuse interstitial nodular consolidation, differential considerations noted. Comparison with prior studies, if available, would be of value. Clinically appropriate follow-up likely in consultation with pulmonology recommended.. This document has been electronically signed by: Juancarlos Gamble MD on 04/13/2024 07:32:10 Dictated By: Juancarlos Gamble MD Signed By: <Electronically signed by Juancarlos Gamble MD in OV> 04/13/24731 DD/ 1 TD/TT: 04/13/24731 Military Science Instructor: [facility] External Provider IMG CT PROCEDURES Final Result * (ABNORMAL) Cologuard?? colon cancer screening (02/28/2024 2:45 PM EST) Cologuard Result Positive( A) Negative 03/10/2024 9:39 AM EST [employer] (CLIA #:[id number]) Comment: POSITIVE TEST RESULT. A positive Cologuard result should be followed with a colonoscopy or visual examination of the colon. The normal value (reference range) for this assay is negative. TEST DESCRIPTION: Composite algorithmic analysis of stool DNA-biomarkers with hemoglobin immunoassay. ?? Quantitative values of individual biomarkers are not reportable and are not associated with individual biomarker result reference ranges. Cologuard is intended for colorectal cancer screening of adults of either sex, 45 years or older, who are at average-risk for colorectal cancer (CRC). Cologuard has been approved for use by the U.S. FDA. The performance of Cologuard was established in a cross sectional study of average-risk adults aged 50-84. Cologuard performance in patients ages 45 to 49 years was estimated by sub-group analysis of near-age groups. Colonoscopies performed for a positive result may find as the most clinically significant lesion: colorectal cancer [4.0%], advanced adenoma (including sessile serrated polyps greater than or equal to 1cm diameter) [20%] or non- advanced adenoma [31%]; or no colorectal neoplasia [45%]. These estimates are derived from a prospective cross-sectional screening study of 10,000 individuals at average risk for colorectal cancer who were screened with both Cologuard and colonoscopy. (Sheba Moncada al, N Engl J Med 2014;370(14):8960-8174.) Cologuard may produce a false negative or false positive result (no colorectal cancer or precancerous polyp present at colonoscopy follow up). A negative Cologuard test result does not guarantee the absence of CRC or advanced adenoma (pre-cancer). The current Cologuard screening interval is every 3 years. ([place] [employer] Society and U.S. Multi-Society Task Force). Cologuard performance data in a 10,000 patient pivotal study using colonoscopy as the reference method can be accessed at the following location: www.[employer]/results. Additional description of the Cologuard test process, warnings and precautions can be found at www.[employer]. Stool specimen (specimen) 02/28/2024 2:45 PM EST 02/29/2024 10:46 AM EST us Jaja Garcia MD LAB MOLECULAR DIAGNOSTICS ORD ERABLES Final Result [employer] (CLIA #:[id number]) [address] [place] [address], * (ABNORMAL) Lipid Panel, Standard (01/05/2024 2:50 PM EDT) Triglycerides 85 <150 mg/dL [facility] Comment:Desirable Triglyceri de: less than 150 mg/dLBorderline High Triglyceride 150-199 mg/dLHigh Triglyceride: 200-499 mg/dLVery High Triglyceride: greater than or equal to 5OO mg/dL Cholesterol 139 <200 mg/dL [facility] Comment:Desirable Cholestero l: less than 200 mg/dLBorderline High Cholesterol: 200-239 mg/dLHigh Cholesterol: greater than 239 mg/dL LDL Cholesterol Calculated 83 <100 mg/dL [facility] Comment:Desirable LDL: less than 100 mg/dLNear Optimal/Above Optimal LDL: 110- 129 mg/dLBorderline High LDL: 130-159 mg/dLHigh LDL: 160-189 mg/dLVery High LDL: greater than or equal to 190 mg/dL HDL Cholesterol 39(L) >40 mg/dL [facility] Comment:Desirable HDL: great er than 40 mg/dL Note: This HDL assay may give artificially low results in patients with liver disease. Blood Venous blood specimen / Unknown 01/05/2024 2:50 PM EDT 01/05/2024 5:19 PM EDT us Jaja Garcia MD LAB BLOOD ORDERABLES Final Re sult [facility] [address] [place] [address] [phone] from Last 3 Months or Most Recently Relevant to Health Maintenance [place] [address] [place] [address] MEDICARE Care Teams Test Skein Winder Relationship Specialty Start Date End Date Jaja Garcia MD [address] [place] [id number] PCP - General Family Medicine 01/05/24 Donell Ryan M.D. Consulting Physician Orthopaedic Surgery 01/05/24 [facility]
--- OUTSIDE RECORDS SUMMARY | 2024-06-19 08:54 | XMS_ITS | Clinical Summary ---
Author Organization [address] [place] [address] [place] [phone] Phone Care Team Providers Care Stapling Machine Operator Name Role Phone Physician, No Pcp Primary Care Provider Unavaila ble Allergies Active Allergy Reactions Criticality Noted Date Comments Bee Venom Protein (Honey Bee) Other 10/20/2005 Stung by 100+ bees at one time as a child - had severe edema. Never had any issues with bee stings since Codeine 08/23/2017 vomiting Medications meloxicam (MOBIC) 15 mg tablet Take 1 tablet (15 mg total) by mouth 1 (one) time each day. Active acetaminophen (TYLENOL) 500 mg tablet Take 100 mg by mouth. Active Active Problems Problem Noted Date Diagnosed Date Dyspnea 06/05/2018 Overview (12/25/2023): Nuclear stress test(05/29/18): technically difficult study due to bowel loop artifact which may interfere withinferior wall image and interpratation. Other segments have perfusion defect to suggest ischemia or infarct. Normal left ventricular size and systolic function with LVEF 50% PVD (peripheral vascular disease) 11/26/2017 Overview (12/25/2023): LE arterial duplex (11/21/17):no hemodynamically significant stenosis in both lower extremities. STEPHENIE : right 1.16, left 9.93, normal range. TBI's : right 0.40, left 0.21 may represent occlusive arterial disease Synovitis of right ankle 11/14/2017 Abnormal radionuclide bone scan 10/19/2017 Cervicalgia 08/23/2017 Chronic ankle pain 08/23/2017 Overview (12/25/2023): S/p tib/fib fracture & repair Anxiety state 11/15/2005 Tobacco use disorder 11/15/2005 Surgical History Surgery Date Site/Laterality Comments OTHER SURGICAL HISTORY 2004 Right PROCEDURE: [place] UNLISTED PROCEDURE LEG/ANKLE; COMMENT: tib/fib compound fracture with metal [place], pins - [facility] trauma (Dr. Verdin) TONSILLECTOMY PROCEDURE: HISTORICAL TONSILLECTOMY Medical History Medical History Date Comments Anxiety state, unspecified 11/15/2005 DX:An xiety state, unspecified Tobacco use disorder 11/15/2005 DX:Tobacco use disorder Chronic ankle pain 08/23/2017 DX:Chronic an kle pain; COMMENT: S/p tib/fib fracture & repair Cervicalgia 08/23/2017 DX:Cervicalgia Family History Medical History Relation Name Comments No Known Problems Brother Other: aortic aneurysm Father emphy sema, DM II, HTN, Lipids CABG Mother x4, CHF/Edema, mild dementia Diabetes Sister 1 COPD Sister 2 smokes Multiple sclerosis Sister 3 Relation Name Status Comments Brother Alive Father Mother Alive Sister 1 Alive Sister 2 Alive Sister 3 Social History Tobacco Use Types Packs/Day Years Used Date Smoking Tobacco: Every Day Cigarettes Smokeless Tobacco: Never Alcohol Use Standard Drinks/Week Comments Yes 0 (1 standard drink = 0.6 oz pur e alcohol) Sex and Gender Information Value Date Recorded Sex Assigned at Not on file Legal Sex Male 4:10 PM EST Gender Identity Not on file Sexual Orientation Not on file Obstetrics History Last Filed Vital Signs Vital Sign Reading Time Taken Comments Blood Pressure 158/78 06/16/2023 8:59 AM EDT Pulse 92 06/16/2023 8:59 AM EDT Temperature - - Respiratory Rate - - Oxygen Saturation - - Inhaled Oxygen Concentration - - Weight 56.8 kg (125 lb 3.2 oz) 06/16/2023 8:59 A M EDT Height 175.3 cm (5' 9 ) 06/16/2023 8:59 AM EDT Body Mass Index 18.49 06/16/2023 8:59 AM EDT Plan of Treatment Health Maintenance Due Date Last Done Comments DTaP,Tdap,and Td Vaccines (1 - Tdap) 11/04/1983 Hepatitis B Vaccines (1 of 3 - 19+ 3-dose series) 11/04/1983 Pneumococcal Vaccine: 50+ Years (1 of 2 - PCV) 11/04/1983 Pneumococcal Vaccine: Pediatrics (0 to 5 Years) and At-Risk Patients (6 to 64 Years) (1 of 2 - PCV) 11/04/1983 Colorectal Cancer Screening: Colonoscopy 10/17/2023 HIV Screening 10/17/2023 Lung Cancer Screening (Low Dose CT) 10/17/2023 Social Influencers of Health Screening 10/17/2023 COVID-19 Vaccine (4 - 2023-2 5 season) 2023 03/01/2021, 07/31/2020, 07/10/2020 Influenza Vaccine (Season Ended) 2024 Depression Screening 01/04/2025 01/05/2024 Cholesterol Screening (Lipid Panel) 01/04/2029 01/05/2024, 06/20/2023 RSV Immunization Adult Patients (1 - 1-dose 75+ series) 11/04/2039 Hepatitis C Screening Completed 10/29/2017 Zoster Vaccines Completed 05/05/2021, 03/01/2021 HIB Vaccines [...] on patient's age to complete this topic MMR Vaccines Aged Out No longer eligi ble based on patient's age to complete this topic Meningococcal ACWY Vaccine Aged Out N o longer eligible based on patient's age to complete this topic Meningococcal B Vacine Aged Out No lo nger eligible based on patient's age to complete this topic RSV Immunization Patients Under 20 months Aged Out No longer eligible b ased on patient's age to complete this topic Varicella Vaccines Aged Out No longer eligible based on patient's age to complete this topic Procedures Procedure Name Priority Date/Time Associated Diagnosis Comments LIPID PANEL Routine 06/20/2023 HM HEPATITIS C SCREENING Routine 10/29/2017 from Last 3 Months or Most Recently Relevant to Health Maintenance Results * Lipid panel (06/20/2023) LDL/HDL Ratio 3 Triglycerides 77 mg/dL Cholesterol 144 mg/dL HDL 53 mg/dL LDL Cholesterol 76 mg/dL Blood Venous blood specimen / Unknown Historical Provider LAB BLOOD ORDERABLES Aide l Result * Hepatitis C Screening (10/29/2017) Hepatitis C Screening negative Historical Provider HEALTH MAINTENANCE Final Result from Last 3 Months or Most Recently Relevant to Health Maintenance Insurance [facility] Care Teams Stapling Machine Operator Relationship Specialty Start Date End Date Physician, No Pcp PCP - General 02/14/24
--- OUTSIDE RECORDS SUMMARY | 2024-06-19 08:54 | XMS_ITS | Encounter Summary ---
Author Organization [employer] Address [address] [facility] [address] [place] [address] Care Team Providers Care Pet Training Instructor Name Role Phone Jaja Garcia MD Primary Care Provider [phone] Reason for Visit * Reason Onset Date Comments Created In Error 02/08/2024 Encounter Details Date Type Department Care Team ([facility] st Contact Info) Description 02/08/2024 Telephone [facility] [address] [place] [address] Jaja Garcia MD [address] [place] [address] Created In Error Social History Tobacco Use Types Packs/Day Years Used Date Smoking Tobacco: Every Day Cigarettes 2 41.2 Started: 03/20/1983 Alcohol Use Standard Drinks/Week Comments Yes 6 [...] Don't know 10/02/2023 10 :40 AM EDT documented as of this encounter Plan of Treatment Not on file documented as of this encounter Visit Diagnoses Not on filedocumented in this encounter Additional Health Concerns Assessment Noted Time PHQ-9 Depression Total Score: 0 01/05/20 24 1:18 PM EDT documented as of this encounter Care Teams Pet Training Instructor Relationship Specialty Start Date End Date Jaja Garcia MD [address] [place] [phone] PCP - General Family Medicine 01/05/24 Donell Ryan M.D. Consulting Physician Orthopaedic Surgery 01/05/24 [facility] 04/02/24 documented as of this encounter
== END 2024-06-19 08:33 | disposition home or self-care (01) ==
LOC: HO.CT 08:32
PROVIDERS: PCP Family Medicine; Visit Provider Nurse Practitioner Family
DX: J18.1 Lobar pneumonia, unspecified organism (principal)
CPT/HCPCS: 71250

== ENCOUNTER → 2024-06-19 08:40 | Outpatient (BNV) | payer OTHER, SELFPAY | PROVIDERS: PCP Family Medicine; Visit Provider Radiology Diagnostic Radiology | DX: J84.10 Pulmonary fibrosis, unspecified (principal) | CPT/HCPCS: 71250 ==

== ENCOUNTER 2024-06-25 09:39 | Outpatient (AMB) | payer OTHER, SELFPAY ==
[2024-06-25 10:03] VITALS: BP 144/80; PULSE 81; O2SAT 98; BMI 22.2
--- NOTE | 2024-06-25 10:03 | MHC.OFFVIS ---
Vital Signs 06/25/24 10:03 Height 5 ft 10 in Weight 155 lb BMI 22.2 BP 144/80 H Pulse 81 Pulse Source Pulse Oximeter Pulse Oximetry (%) 98 Oxygen Delivery Method Room Air Intake Visit Reasons: COPD Machine Splitter Required: No Entry Level Administrative Assistant: Entry Level Administrative Assistant offered & declined Accompanied by: Self / Same As Patient Allergies codeine Adverse Reaction (Mild, Verified 06/25/24 10:05) Vomiting bees Allergy (Intermediate, Uncoded 06/25/24 10:05) Anaphylaxis Medication List - Last Reconciled 06/25/24 by Moriah Cruz LPN acetaminophen 500 mg PO Q6H PRN albuterol sulfate 90 mcg/actuation 2 puffs inhalation Q4-6H PRN amoxicillin-pot clavulanate 875-125 mg 1 tab PO Q12H aspirin 1 tab PO DAILY fluticasone furoate-vilanterol 100-25 mcg/dose (Breo Ellipta) 1 inh inhalation DAILY meloxicam 15 mg PO DAILY PRN oxycodone 5 mg PO TID PRN rosuvastatin 20 mg PO DAILY tiotropium bromide (Spiriva with HandiHaler) 1 cap inhalation DAILY HPI HPI COPD: Details: Jabier is a pleasant 58 year old male, former 80+ pack year smoker, recently quit 3 months ago with underlying mild COPD, PAD and RI 2018. He was initally referred by Dr. Sierra for perioperative pulmonary evaluation for proposed open aortobifemoral bypass surgery performed in March which he has recovered well. At the last visit, he was started on Breo in addition to Spiriva and albuterol MDI, reporting significant relief of symptoms. He also was treated for bronchitic symptoms and has resolution, now with clear productive cough. Today he presents to review chest CT. Prior CT 03/2023 revealed diffuse interstitial nodular consolidation. [facility] Medical History Aortoiliac occlusive disease PAD (peripheral artery disease) Smoker COPD (chronic obstructive pulmonary disease) Pulmonary nodules History of femoral angiogram (02/07/24) Hx: bad fall (~2021) HLD (hyperlipidemia) Heart attack (~2017) Surgical History Hx of myringotomy Hx of tonsillectomy History of surgery on lower extremity (~2003) H/O tooth extraction Family History Mother History of quadruple bypass Father Aneurysm Social History (Updated 04/09/24 @ 08:59 by RADHA Kingsley) Household Members: None Housing: House Are you a primary personal care attendant to a significant other at home: No Do you presently have visiting nurse or other home services: No 75 years or older and lives alone: No Alcohol intake: current Alcohol intake frequency: a few times a week Alcohol type: beer Comment: aware of trip hazard Patient Tobacco Use Status: Former Tobacco user Tobacco use type: Cigarette Cigarette Packs Per Day: 1 Cigarettes Per Day: 1 Years Smoked: 40 e-Cigarette/Vaping Use: Never Used Second Hand Smoke Exposure: No Substance Use Type: Marijuana service: No Review of Systems Const Denies chills, Denies excessive sweating, Denies fever(s), Denies headache(s) and Denies night sweats Eyes Denies dry eyes, Denies irritation and Denies itchy eyes ENT Reports Normal hearing present, Denies headache(s), Denies nasal congestion, Denies nasal discharge, Denies post nasal drip and Denies sore throat Card Denies chest pain, Denies chest pain at rest, Denies chest pain with activity, Denies claudication, Denies leg edema, Denies dyspnea on exertion, Denies orthopnea and Denies paroxysmal nocturnal dyspnea Resp Denies change in phlegm color, Denies chest congestion, Reports cough, Denies hemoptysis, Denies excessive phlegm production, Denies pain on inspiration, Denies pain with cough, Denies dyspnea on exertion, Denies stridor and Denies wheezing Musc Denies myalgias Neuro Reports Normal hearing present and Denies headache(s) Endo Denies excessive sweating Mauro/Lymph Denies lymphadenopathy Aller/Immun Denies itchy eyes, Denies seasonal rhinorrhea and Denies wheezing Physical Exam Vital Signs: Last Vital Signs Pulse 81 06/25/24 10:03 BP 144/80 H 06/25/24 10:03 Pulse Ox 98 06/25/24 10:03 Oxygen Delivery Method Room Air 06/25/24 10:03 BMI result Body Mass Index 22.2 Const General: cooperative, healthy appearing, comfortable, no acute distress, well developed and alert Nutritional Appearance: thin Orientation/consciousness: patient oriented x3 Limitations: no limitations HEENT Head: Yes normal to inspection, Yes normocephalic and Yes atraumatic Ears: hearing grossly normal bilaterally and external ears normal Eyes General: appearance normal, both eyes and all related structures Eyelids: Yes eyelids normal Sclerae: sclerae normal EOM: EOMs intact bilaterally Neck Neck: Yes normal visual inspection and Yes no lymphadenopathy Lymphatic: no lymphadenopathy noted Chest Chest palpation & inspection: normal inspection of the chest Resp Effort & Inspection: normal respiratory effort, able to speak in complete sentences, no audible wheezes, no cough, no stridor, not tachypneic, no tripod positioning and no use of accessory muscles Auscultation: diminished lung sounds Cardio Jugular venous distension: no JVD Rate: regular rate Rhythm: regular rhythm Skin Other: warm, dry General skin exam: no rashes or lesions noted Neuro General: patient oriented x3 Cranial nerves: Yes Normal hearing present Cognition (Neuro): normal cognition Gait exam (Neuro): Normal gait present Extrem General: Yes normal to inspection, Yes capillary refill normal, Yes no clubbing, cyanosis or edema and Yes no pedal edema Psych Appearance: grossly normal and well kempt Speech and movement: Normal speech and movement present and Clear speech present Affect: normal affect Attitude: cooperative Thought process: Normal thought process present Thought content: Normal thought content present Insight: Good insight present (Psych) Judgement: Good judgement present (Psych) Results Reviewed Results Reviewed: [address] [address] [address] Scan Report Signed Patient: Jabier Simpson MR#: [id number] : 1965 Acct:[id number] Age/Sex: 58 / M ADM Date: 06/19/24 Loc: HO.CT Attending Dr: Sis Paul NP Ordering Physician: Sis Paul NP Date of Service: 06/19/24 Procedure(s): CT chest wo IV con Accession Number(s): [id number] cc: Sis Paul NP; Jaja Garcia MD~ Report Number: [id number]: Total DLP = 154.00 mGy-cm EXAMINATION: CT CHEST WITHOUT IV CONTRAST INDICATION: J18.1 - Lobar pneumonia, unspecified organism COMPARISON: Comparison is made with the prior examination dated 04/12/2024. TECHNIQUE: Helical CT scan of the chest was performed without intravenous contrast. Coronal and sagittal reformatted images were generated and reviewed. This CT exam was performed with one or more of the following dose reduction techniques: automated exposure control, adjustment of the mA and/or kV according to patient size, use of iterative reconstruction technique. DLP: 154 mGy-cm CHEST: THYROID: The thyroid is unremarkable. LUNGS: There are mild emphysematous changes. Multiple tiny calcified granulomas are noted throughout both lungs. The lungs are otherwise clear. The previously seen interstitial and airspace opacities in both lungs have resolved. MEDIASTINUM: Again seen are mediastinal lymph nodes which measure less than 10 mm in maximum short axis dimension. SIMONE: Evaluation of the hilar regions is limited by lack of intravenous contrast material. CARDIOVASCULATURE: The heart is normal in size. There is no pericardial effusion. The thoracic aorta is normal in caliber. DEGREE OF CORONARY CALCIFICATION: moderate PLEURA: There is no pleural effusion. No pneumothorax. MAIN AIRWAYS: The mainstem bronchi and proximal branches are patent. AXILLA: There is no axillary lymphadenopathy. BONES AND SOFT TISSUES: Unremarkable UPPER ABDOMEN: The visualized portions of the liver, spleen, and adrenals have an unremarkable unenhanced appearance. CT/CT chest wo IV con IMPRESSION: Mild emphysema. Scattered calcified granulomas. The previously seen interstitial and airspace opacities in both lungs have resolved. Electronically signed by: Chilango Rdz MD 06/19/2024 10:18 AM EDT Dictated By: Chilango Rdz MD Signed By: <Electronically signed by Chilango Rdz MD in OV> 06/19/24 1018 DD/ 0847 TD/TT: 06/19/24 0905 Extrusion Bender: Assessment & Plan Assessment & Plan (1) COPD (chronic obstructive pulmonary disease): Code(s): J44.9 - Chronic obstructive pulmonary disease, unspecified Category: Medical (2) Nicotine dependence, cigarettes, uncomplicated: Code(s): - Nicotine dependence, cigarettes, uncomplicated Category: Medical Plan At this time patient reports good control of respiratory symptoms with Breo, Spiriva and albuterol MDI. Will continue, if symptoms become less controlled will increase Breo. Encouraged continued smoking cessation which patient is motivated to do. Reviewed chest CT which revealed resolution of diffuse interstitial nodular consolidation, revealing mild emphysematous changes with scattered granulomas. Will repeat in one year to assess for stability given significant smoking history. All questions were answered and patient is in agreement of plan. Will follow up in 3 months or sooner if needed. Orders: Orders CT chest wo IV con 11 Months - Nicotine dependence, cigarettes, uncomplicated Medications: Refilled fluticasone furoate-vilanterol 100-25 mcg/dose (Breo Ellipta) 1 inh inhalation DAILY 60 ea 3RF Discontinued amoxicillin-pot clavulanate 875-125 mg Discontinued Reason: Patient Completed Course 1 tab PO Q12H 20 tabs 0RF Coding Level of Care Code Est Pt Level 4 (10106) Diagnoses COPD (chronic obstructive pulmonary disease) J44.9 Nicotine dependence, cigarettes, uncomplicated
--- OUTSIDE RECORDS SUMMARY | 2024-06-25 10:55 | XMS_ITS | Encounter Summary ---
Author Organization [facility] Address [address] [place] [address] Care Team Providers Care Oyster Opener Name Role Phone Andrew Hansen MD Primary Care Provider [phone] Community, Pcp Primary Care Provider Lulu christianson [facility], Pcp Primary Care Provider Mary Becerril DO Primary Care Provider [phone] Encounter Details Date Type Department Care Team Description 12/14/2017 Release of Information Medical Records [address] [place] [id number] Abstract, Provider Social History Tobacco Use Types Packs/Day Years Used Date Smoking Tobacco: Every Day Cigarettes 1.5 20 Smokeless Tobacco: Never Comments:varies based on wor k - rolls his own Alcohol Use Standard Drinks/Week Comments Yes 0 (1 standard drink = 0.6 oz pure alcohol) none since november - prior Sex Assigned at Date Recorded Not on file Job Start Date Occupation Industry Not on file Not on file Not on file documented as of this encounter Plan of Treatment Not on file documented as of this encounter Visit Diagnoses Not on filedocumented in this encounter Care Teams Oyster Opener Relationship Specialty Start Date End Date Andrew Hansen MD [address] [place] [address] PCP - General Internal Medicine 07/13/17 03/07/19 [facility], Pcp [address] [place] [address] PCP - General Internal Medicine 03/08/19 08/01/22 [facility], Pcp [address] [place] [address] PCP - General Internal Medicine 08/02/22 01/17/23 Mary Tejeda, DO [address] [place] [address] PCP - General Internal Medicine 01/18/23 documented as of this encounter
--- OUTSIDE RECORDS SUMMARY | 2024-06-25 10:55 | XMS_ITS | Clinical Summary ---
Author Organization [address] [place] [address] [place] [id number] Phone Care Team Providers Care Heavy Coil Winder Name Role Phone Physician, No Pcp Primary [...] Comments OTHER SURGICAL HISTORY 2004 Right PROCEDURE: ND UNLISTED PROCEDURE LEG/ANKLE; COMMENT: tib/fib compound fracture with metal [place], pins - [facility] trauma (Dr. Verdin) TONSILLECTOMY PROCEDURE: HISTORICAL [...] age to complete this topic Meningococcal B Vaccine Aged Out No l onger eligible based on patient's age to complete [...] Most Recently Relevant to Health Maintenance Insurance [facility] Care Teams Heavy Coil Winder Relationship Specialty Start Date End Date Physician, No Pcp PCP - General 02/14/24
--- OUTSIDE RECORDS SUMMARY | 2024-06-25 10:55 | XMS_ITS | Clinical Summary ---
Author Organization [facility] Address [address] [place] [address] Care Team Providers Care School Attendance Secretary Name Role Phone Rebeka Tejedamana Primary Care Provider [phone] Allergies Active Allergy Reactions Severity Noted Date Comments Bee Stings OTHER 10/20/2005 Stung by 100+ bees at one time as a child - had severe edema. Never had any issues with bee stings since Codeine 08/23/2017 vomiting Medications Medication Sig Dispensed Refills Start Date End Date Status acetaminophen (TYLENOL) 500 MG tablet Take 100 mg by mouth every 8 hours. 0 Active meloxicam (MOBIC) 15 MG tablet Take 1 Tablet by mouth daily. 0 Active Active Problems Problem Noted Date Dyspnea 06/05/2018 Overview: Nuclear stress test(05/29/18): technically difficult study due to bowel loop artifact which may interfere withinferior wall image and interpratation. Other segments have perfusion defect to suggest ischemia or infarct. Normal left ventricular size and systolic function with LVEF 50% PVD (peripheral vascular disease) 2017 Overview: LE arterial duplex (11/21/17):no hemodynamically significant stenosis in both lower extremities. STEPHENIE : right 1.16, left 9.93, normal range. TBI's : right 0.40, left 0.21 may represent occlusive arterial disease Synovitis of right ankle 11/14/2017 Abnormal radionuclide bone scan 10/20/19 18 Chronic ankle pain 08/23/2017 Overview: S/p tib/fib fracture & repair Cervicalgia 08/23/2017 Anxiety state, unspecified 11/15/2005 Tobacco use disorder 11/15/2005 Family History Medical History Relation Name Comments No Known Problems Brother aortic aneurysm Father emphysema, D M II, HTN, Lipids CABG Mother x4, CHF/Edema, mild dementia Diabetes Sister 1 COPD Sister 2 smokes Multiple Sclerosis Sister 3 Relation Name Status Comments Brother Alive Father Mother Alive Sister 1 Alive Sister 2 Alive Sister 3 Social History Tobacco Use Types Packs/Day Years Used Date Smoking Tobacco: Every Day Cigarettes 1.5 20 Smokeless Tobacco: Never Tobacco Cessation:Ready to Q uit: Not Asked; Counseling Given: Not Answered Comments:varies based on work - rolls his own Alcohol Use Standard Drinks/Week Comments Yes 0 (1 standard drink = 0.6 oz pur e alcohol) beer 2 cans daily Sex Assigned at Date Recorded Not on file Job Start Date Occupation Industry Not on file Not on file Not on file Last Filed Vital Signs Vital Sign Reading Time Taken Comments Blood Pressure 158/78 06/16/2023 8:59 AM EDT Pulse 92 06/16/2023 8:59 AM EDT Temperature 36.8 ??C (98.2 ??F) 08/23/2017 8:56 AM ED T Respiratory Rate 14 12/14/2017 1:47 PM EDT Oxygen Saturation 63% 12/04/2017 3:14 PM EDT Inhaled Oxygen Concentration - - Weight 56.8 kg (125 lb 3.2 oz) 06/16/2023 8:59 A M EDT Height 175.3 cm (5' 9 ) 06/16/2023 8:59 AM EDT Body Mass Index 18.49 06/16/2023 8:59 AM EDT Plan of Treatment Health Maintenance Due Date Last Done Comments Covid-19 Vaccine (#1) 05/06/1965 DTAP/TDAP/TD (1 - Tdap) 11/04/1983 BASELINE HEALTH EXAM 40-64 2004 COLON CANCER SCREENING 2014 SHINGLES VACCINE (1 of 2) 2014 BMI CHECK/ADVISE 03/20/2024 06/16/2023 (Com pleted), 11/14/2017, 10/26/2017 DEPRESSION SCREENING/FOLLOWUP 03/20/2024 SOCIAL NEEDS SCREENING 03/20/2024 Lung Cancer Screening (Low Dose CT) 06/15/2024 06/16/2023 (Refused), 11/23/2005 INFLUENZA (Season Ended) 2024 TOBACCO CHECK/ADVISE 06/15/2025 06/16/2023, 08/24/19 18 CHOLESTEROL SCREENING 06/19/2028 06/20/2023, 018 PNEUMOCOCCAL VACCINE FOR HIG H RISK PATIENTS (#1) 2029 HEPATITIS C SCREENING Completed 10/19/2017 Care Teams School Attendance Secretary Relationship Specialty Start Date End Date Mary Tejeda, DO [address] [place] [address] PCP - General Internal Medicine 01/18/23
--- OUTSIDE RECORDS SUMMARY | 2024-06-25 10:55 | XMS_ITS | Encounter Summary ---
Author Organization [facility] Address [address] [place] [address] Care Team Providers Care Mobile Patrol Officer Name Role Phone Andrew Hansen MD Primary Care Provider [phone] Community, Pcp Primary Care Provider Lulu christianson [facility], Pcp Primary Care Provider Mary Becerril DO Primary Care Provider [phone] Encounter Details Date Type Department Care Team Description 09/16/2017 Release of Information Medical Records [address] [place] [id number] Abstract, Provider Social History Tobacco Use Types [...] on filedocumented in this encounter Care Teams Mobile Patrol Officer Relationship Specialty Start Date End Date Andrew Hansen MD [address] [place] [address] PCP - General Internal Medicine 07/13/17 03/07/19 [facility], Pcp [address] [place] [address] PCP - General Internal Medicine 03/08/19 08/01/22 [facility], Pcp [address] [place] [address] PCP - General Internal Medicine 08/02/22 01/17/23 Mary Tejeda, DO [address] [place] [address] PCP - General Internal Medicine 01/18/23 documented as of this encounter
--- OUTSIDE RECORDS SUMMARY | 2024-06-25 10:55 | XMS_ITS | Encounter Summary ---
Author Organization [facility] Address [address] [place] [address] Care Team Providers Care Resume Writer Name Role Phone Andrew Hansen MD Primary Care Provider [phone] Community, Pcp Primary Care Provider Lulu Gallo, Pcp Primary Care Provider Mary Becerril DO Primary Care Provider [phone] Encounter Details Date Type Department Care Team Description 10/17/2017 Professor Of Biochemistry Report Medical Records [address] [place] [id number] Jelani Salazar DO Social History Tobacco Use Types Packs/Day Years [...] on filedocumented in this encounter Care Teams Resume Writer Relationship Specialty Start Date End Date Andrew Hansen MD [address] [place] [address] PCP - General Internal Medicine 07/13/17 03/07/19 [facility], Pcp [address] [place] [address] PCP - General Internal Medicine 03/08/19 08/01/22 [facility], Pcp [address] [place] [address] PCP - General Internal Medicine 08/02/22 01/17/23 Mary Tejeda, DO [address] [place] [address] PCP - General Internal Medicine 01/18/23 documented as of this encounter
--- OUTSIDE RECORDS SUMMARY | 2024-06-25 10:55 | XMS_ITS | Encounter Summary ---
Author Organization [facility] Address [address] [place] [address] Care Team Providers Care Conveyancer Name Role Phone Andrew Hansen MD Primary Care Provider [phone] Community, Pcp [facility], Pcp Primary Care Provider Mary Becerril DO Primary Care Provider [phone] Reason for Visit * Reason Onset Date Comments Post Hospital Admission Outreach 12/07/2017 Encounter Details Date Type Department Care Team Description 12/07/2017 Telephone Adult Medicine [address] [address] Andrew Hansen MD [address] [place] [address] Post Hospital Admission Outreach Social History Tobacco Use Types Packs/Day Years [...] on file documented as of this encounter Miscellaneous Notes * Telephone Encounter - Yudi Woodall L.P.N. - 12/07/2017 4:21 PM EDT Patient was outreached for post hospital discharge. Unable to reach patient. Message left for patient to return call to Adult Medicine in [place] Patient was discharged from: [facility] on 12/06/17. Patient in need of follow-up appointment within 7 to 10 days of discharge date. . If patient returns the call, please schedule appointment with a physician in specific time period as listed above. Appointment note to reflect: Post Hospital Discharge--Diagnosis: Primary Diagnosis: (1) Acid-base disorder, mixed (2) Dehydration (3) Hypoxia (4) Nausea & vomiting (5) Duodenal mass (6) Acute kidney injury (7) Adverse effect of non-steroidal anti-inflammatory drug (NSAID) (8) Osteoarthritis of right hip documented in this encounter Plan of Treatment Not on file documented as of this encounter Visit Diagnoses Not on filedocumented in this encounter Care Teams Conveyancer Relationship Specialty Start Date End Date Andrew Hansen MD [address] [place] [address] PCP - General Internal Medicine 07/13/17 03/07/19 [facility], Pcp [address] [place] [address] PCP - General Internal Medicine 03/08/19 08/01/22 [facility], Pcp [address] [place] [address] PCP - General Internal Medicine 08/02/22 01/17/23 Mary Tejeda, [address] [place] [address] PCP - General Internal Medicine 01/18/23 documented as of this encounter
--- OUTSIDE RECORDS SUMMARY | 2024-06-25 10:55 | XMS_ITS | Encounter Summary ---
Author Organization [facility] Address [address] [place] [address] Care Team Providers Care Gunstock Repairer Name Role Phone Andrew Hansen MD Primary Care Provider [phone] Community, Pcp Primary Care Provider Lulu christianson [facility], Pcp Primary Care Provider Mary Becerril DO Primary Care Provider [phone] Encounter Details Date Type Department Care Team Description 05/02/2018 Distributor Cleaner Report Medical Records [address] [place] [address] Krishan Kumar MD [address] [place] [address] Social History Tobacco Use Types Packs/Day Years [...] on filedocumented in this encounter Care Teams Gunstock Repairer Relationship Specialty Start Date End Date Andrew Hansen MD [address] [place] [address] PCP - General Internal Medicine 07/13/17 03/07/19 [facility], Pcp [address] [place] [address] PCP - General Internal Medicine 03/08/19 08/01/22 [facility], Pcp [address] [place] [address] PCP - General Internal Medicine 08/02/22 01/17/23 Mary Tejeda DO [address] [place] [address] PCP - General Internal Medicine 01/18/23 documented as of this encounter
--- OUTSIDE RECORDS SUMMARY | 2024-06-25 10:55 | XMS_ITS | Encounter Summary ---
Author Organization [facility] Address [address] [place] [address] Care Team Providers Care Natural Resource Technician Name Role Phone Andrew Hansen MD Primary Care Provider [phone] Community, Pcp Primary Care Provider Lulu Gallo, Pcp Primary Care Provider Mary Becerril DO Primary Care Provider [phone] Encounter Details Date Type Department Care Team Description 09/11/2017 Data Capture Clerk Report Medical Records [address] [place] [address] Jelani Salazar DO Social History Tobacco Use [...] on filedocumented in this encounter Care Teams Natural Resource Technician Relationship Specialty Start Date End Date Andrew Hansen MD [address] [place] [address] PCP - General Internal Medicine 07/13/17 03/07/19 [facility], Pcp [address] [place] [address] PCP - General Internal Medicine 03/08/19 08/01/22 [facility], Pcp [address] [place] [address] PCP - General Internal Medicine 08/02/22 01/17/23 Mary Tejeda, DO [address] [place] [address] PCP - General Internal Medicine 01/18/23 documented as of this encounter
--- OUTSIDE RECORDS SUMMARY | 2024-06-25 10:55 | XMS_ITS | Clinical Summary ---
Author Organization [employer] Address [address] [facility] 7t [place] [address] Care Team Providers Care Faculty Dean Name Role Phone Jaja Garcia MD Primary Care Provider [phone] Allergies Active Allergy Reactions Criticality Noted Date [...] 9:50 AM EDT): Reports prior hx of [place], no records. Chronic SALDIVAR/SOB, hx of heavy [...] Encounters Date Type Department Care Team Description 06/19/2024 Orders Only [facility] External Provider, [facility] 06/08/2024 Refill [facility] [address] [place], [place] [phone] Jaja Garcia MD Obstructive lung disease ([facility]) 04/12/2024 Orders Only [facility] External Provider, [facility] 04/03/2024 Telephone [facility] [address] [place], [place] [phone] Concha Grier, [facility] (Verbal orders needed for [facility]) 04/01/2024 Telephone [facility] [address] [place], [place] [phone] Jaja Garcia MD Verbal Order from Last 3 Months Immunizations Name Administration Dates Next Due Zoster, Recombinant 05/05/2021,03/01/2021 Social History Tobacco Use Types Packs/Day Years Used Date Smoking Tobacco: Every Day Cigarettes 2 41.3 Started: 03/20/1983 Tobacco Cessation:Ready to Q uit: [...] 11/04/1983 Lung Cancer Screening 2014 COVID-19 Vaccine ( - 2023-2 5 season) 2023 03/01/2021, 07/31/2020, [...] Diagnosis Comments CT CHEST WO CONTRAST Routine 06/19/2024 8:[address] CHEST WO CONTRAST Routine 04/13/2024 7:32 AM EST LAB COLOGUARD?? COLON CANCER SCREEN Routine 02/28/2024 2:45 PM EST Screening for colon cancer LIPID PANEL, STANDARD Routine 01/05/2024 2:50 PM EDT PVD (peripheral vascular disease) (CMS/HCC) from Last 3 Months or Most Recently Relevant to Health Maintenance Results * CT Chest w/o Contrast (06/19/2024 8:47 AM EDT) Only the most recent of2 resultswithin the time period is included. Anatomical Region Laterality Modality Body, Chest Computed Tomogra phy 06/19/2024 8:47 AM EDT Narrative 06/19/2024 10:21 AM EDT ? [facility] ?[address] ?[place] [address] ? CT Scan Report ? Signed ? Patient: Jabier Simpson ?MR#: [id number] ?? [id number] ? : 1965 ?Acct:[id number] ? Age/Sex: 58 / M ?ADM Date: 06/19/24 ? Loc: HO.CT ? Attending Dr: Sis Paul WINDOW SASH INSTALLER ? Ordering Physician: Sis Paul NP ?? Date of Service: 06/19/24 ?? Procedure(s): CT chest wo IV con ?? Accession Number(s): [id number] ? cc: Sis Paul WINDOW SASH INSTALLER; Jaja Garcia MD ? Report Number: ?? [id number]: Total DLP = ??154.00 mGy-cm ?? EXAMINATION: CT CHEST WITHOUT IV CONTRAST ? INDICATION: J18.1 - Lobar pneumonia, unspecified organism ? COMPARISON: Comparison is made with the prior examination dated ?? 04/12/2024. ? TECHNIQUE: Helical CT scan of the chest was performed without ?? intravenous contrast. ??Coronal and sagittal reformatted images were ?? generated and reviewed. ? This CT exam was performed with one or more of the following dose ?? reduction techniques: automated exposure control, adjustment of the mA ?? and/or kV according to patient size, use of iterative reconstruction ?? technique. ? DLP: 154 mGy-cm ? CHEST: ? THYROID: The thyroid is unremarkable. ? LUNGS: There are mild emphysematous changes. Multiple tiny calcified ?? granulomas are noted throughout both lungs. The lungs are otherwise ?? clear. The previously seen interstitial and airspace opacities in both ?? lungs have resolved. ? MEDIASTINUM: Again seen are mediastinal lymph nodes which measure less ?? than 10 mm in maximum short axis dimension. ? SIMONE: Evaluation of the hilar regions is limited by lack of intravenous ?? contrast material. ? CARDIOVASCULATURE: The heart is normal in size. ??There is no ?? pericardial effusion. ??The thoracic aorta is normal in caliber. ? DEGREE OF CORONARY CALCIFICATION: ??moderate ? PLEURA: ??There is no pleural effusion. ??No pneumothorax. ? MAIN AIRWAYS: The mainstem bronchi and proximal branches are patent. ? AXILLA: There is no axillary lymphadenopathy. ? BONES AND SOFT TISSUES: Unremarkable ? UPPER ABDOMEN: The visualized portions of the liver, spleen, and ?? adrenals have an unremarkable unenhanced appearance. ? CT/CT chest wo IV con ?? IMPRESSION: ?? Mild emphysema. Scattered calcified granulomas. The previously seen ?? interstitial and airspace opacities in both lungs have resolved. ? Electronically signed by: ??Chilango Rdz MD ??06/19/2024 10:18 AM EDT ?? RP ? Dictated By: ?Chilango Rdz MD ? Signed By: ?<Electronically signed by Chilango Rdz MD in OV> ?06/19/24 1018 ? DD/ 0847 ? TD/TT: 06/19/24 0905 ? Call Center Director: ? Procedure Note Michael Chase - 06/19/[address] [place] [address] CT Scan Report Signed Patient: Jabier Simpson R#: [id number] : 1965Acct:[id number] Age/Sex: 58 / MADM Date: 06/19/24 Loc: HO.CT Attending Dr: Sis Paul NP Ordering Physician: Sis Paul NP Date of Service: 06/19/24 Procedure(s): CT chest wo IV con Accession Number(s): [id number] cc: Sis Paul WINDOW SASH INSTALLER; Jaja Garcia MD Report Number: [id number]: Total DLP = 154.00 mGy-cm EXAMINATION: CT CHEST WITHOUT IV CONTRAST INDICATION: J18.1 - Lobar pneumonia, unspecified organism COMPARISON: Comparison is made with the prior examination dated 04/12/2024. TECHNIQUE: Helical CT scan of the chest was performed without intravenous contrast. Coronal and sagittal reformatted images were generated and reviewed. This CT exam was performed with one or more of the following dose reduction techniques: automated exposure control, adjustment of the mA and/or kV according to patient size, use of iterative reconstruction technique. DLP: 154 mGy-cm CHEST: THYROID: The thyroid is unremarkable. LUNGS: There are mild emphysematous changes. Multiple tiny calcified granulomas are noted throughout both lungs. The lungs are otherwise clear. The previously seen interstitial and airspace opacities in both lungs have resolved. MEDIASTINUM: Again seen are mediastinal lymph nodes which measure less than 10 mm in maximum short axis dimension. SIMONE: Evaluation of the hilar regions is limited by lack of intravenous contrast material. CARDIOVASCULATURE: The heart is normal in size. There is no pericardial effusion. The thoracic aorta is normal in caliber. DEGREE OF CORONARY CALCIFICATION: moderate PLEURA: There is no pleural effusion. No pneumothorax. MAIN AIRWAYS: The mainstem bronchi and proximal branches are patent. AXILLA: There is no axillary lymphadenopathy. BONES AND SOFT TISSUES: Unremarkable UPPER ABDOMEN: The visualized portions of the liver, spleen, and adrenals have an unremarkable unenhanced appearance. CT/CT chest wo IV con IMPRESSION: Mild emphysema. Scattered calcified granulomas. The previously seen interstitial and airspace opacities in both lungs have resolved. Electronically signed by: Chilango Rdz MD 06/19/2024 10:18 AM EDT Dictated By: Chilango Rdz MD Signed By: <Electronically signed by Chilango Rdz MD in OV> 06/19/24 1018 DD/ 0847 TD/TT: 06/19/24 0905 Call Center Director: [facility] External Provider IMG CT PROCEDURES Edited Result - Final * (ABNORMAL) Cologuard?? colon cancer screening (02/28/2024 2:45 PM EST) Cologuard Result Positive( A) Negative 03/10/2024 9:39 AM EST [facility] (CLIA #:[id number]) Comment: POSITIVE TEST RESULT. A positive Cologuard [...] (Sheba Moncada al, N Engl J Med 2014;370(14):0306-4286.) Cologuard may produce a false negative or false positive result (no colorectal cancer or precancerous polyp present at colonoscopy follow up). A negative Cologuard test result does not guarantee the absence of CRC or advanced adenoma (pre-cancer). The current Cologuard screening interval is every 3 years. ([place] [employer] Society and U.S. Multi-Society Task Force). Cologuard performance data in a 10,000 patient pivotal study using colonoscopy as the reference method can be accessed at the following location: [email or web address].com.tr.VSporto/results. Additional description of the Cologuard test process, warnings and precautions can be found at www.[employer] Incrd.VSporto. Stool specimen (specimen) 02/28/2024 2:45 PM EST 02/29/2024 10:46 AM EST us Jaja Garcia MD LAB MOLECULAR DIAGNOSTICS ORD ERABLES Final Result [facility] (CLIA #:[id number]) [address] [place] [address], * (ABNORMAL) Lipid Panel, Standard (01/05/2024 2:50 PM EDT) Triglycerides 85 <150 mg/dL [facility] Comment:Desirable Triglyceri de: less than 150 mg/dLBorderline High Triglyceride 150-199 mg/dLHigh Triglyceride: 200-499 mg/dLVery High Triglyceride: greater than or equal to 5OO mg/dL Cholesterol 139 <200 mg/dL [facility] Comment:Desirable Cholestero l: less than 200 mg/dLBorderline High Cholesterol: 200-239 mg/dLHigh Cholesterol: greater than 239 mg/dL LDL Cholesterol Calculated 83 <100 mg/dL [facility] Comment:Desirable LDL: less than 100 mg/dLNear Optimal/Above Optimal LDL: 110- 129 mg/dLBorderline High LDL: 130-159 mg/dLHigh LDL: 160-189 mg/dLVery High LDL: greater than or equal to 190 mg/dL HDL Cholesterol 39(L) >40 mg/dL [facility] Comment:Desirable HDL: great er than 40 mg/dL Note: This HDL assay may give artificially low results in patients with liver disease. Blood Venous blood specimen / Unknown 01/05/2024 2:50 PM EDT 01/05/2024 5:19 PM EDT us Jaja Garcia MD LAB BLOOD ORDERABLES Final Re sult [facility] [address] [place] [address] [phone] from Last 3 Months or Most Recently Relevant to Health Maintenance [place] [address] [address] MEDICARE Care Teams Faculty Dean Relationship Specialty Start Date End Date Jaja Garcia MD [address] [place] [address] PCP - General Family Medicine 01/05/24 Donell Ryan M.D. Consulting Physician Orthopaedic Surgery 01/05/24 [facility] 04/02/24
--- OUTSIDE RECORDS SUMMARY | 2024-06-25 10:55 | XMS_ITS | Encounter Summary ---
Author Organization [facility] Address [address] [place] [address] Care Team Providers Care Tomahawk Weapon System Operator Name Role Phone Mary Tejeda DO Primary Care Provider [phone] Encounter Details Date Type Department Care Team Description 07/17/2023 Release of Information Medical Records [address] [place] [address] [facility] Social History Tobacco Use Types Packs/Day Years [...] on filedocumented in this encounter Care Teams Tomahawk Weapon System Operator Relationship Specialty Start Date End Date Mary Tejeda DO [address] [place] [address] PCP - General Internal Medicine 01/18/23 documented as of this encounter
--- OUTSIDE RECORDS SUMMARY | 2024-06-25 10:55 | XMS_ITS | Encounter Summary ---
Author Organization [employer] Address [address] [facility] 7t [place] [address] Care Team Providers Care Healthcare Social Worker Name Role Phone Jaja Garcia MD Primary Care Provider [phone] Reason for Visit * Reason Onset Date Comments Created In Error 02/08/2024 Encounter Details Date Type Department Care Team ([facility] st Contact Info) Description 02/08/2024 Telephone [facility] [address] [place] [address] Jaja Garcia MD [address] [place] [address] Created In Error Social History Tobacco Use Types Packs/Day Years Used Date Smoking Tobacco: Every Day Cigarettes 2 41.3 Started: 03/20/1983 Alcohol Use Standard Drinks/Week Comments [...] documented as of this encounter Care Teams Healthcare Social Worker Relationship Specialty Start Date End Date Jaja Garcia MD [address] [place] [address] PCP - General Family Medicine 01/05/24 Donell Ryan M.D. Consulting Physician Orthopaedic Surgery 01/05/24 [facility] 04/02/24 documented as of this encounter
--- OUTSIDE RECORDS SUMMARY | 2024-06-25 10:55 | XMS_ITS | Encounter Summary ---
Author Organization [facility] Address [address] [place] [address] Care Team Providers Care In Flight Technician Name Role Phone Andrew Hansen MD Primary Care Provider [phone] [facility], Pcp [facility] Primary Care Provider Mary Becerril DO Primary Care Provider [phone] Encounter Details Date Type Department Care Team Description 12/06/2017 [facility] Medical Records [address] [place] [address] Med Aponte MD Social History Tobacco Use Types Packs/Day Years [...] on filedocumented in this encounter Care Teams In Flight Technician Relationship Specialty Start Date End Date Andrew Hansen MD [address] [place] [address] PCP - General Internal Medicine 07/13/17 03/07/19 [facility], Pcp [address] [place] [address] PCP - General Internal Medicine 03/08/19 08/01/22 [facility], Pcp [address] [place] [address] PCP - General Internal Medicine 08/02/22 01/17/23 Mary Tejeda, DO [address] [place] [address] PCP - General Internal Medicine 01/18/23 documented as of this encounter
== END 2024-06-25 11:40 | disposition home or self-care (01) ==
LOC: HO.HPSW 09:39
PROVIDERS: PCP Family Medicine; Visit Provider Nurse Practitioner Family
DX: J44.9 Chronic obstructive pulmonary disease, unspecified (principal); F17.210 Nicotine dependence, cigarettes, uncomplicated
CPT/HCPCS: 99214

== ENCOUNTER 2024-07-10 09:03 | Outpatient (REF) | payer OTHER, SELFPAY ==
--- NOTE | ~2024-07-10 | US_ITS ---
CLINICAL HISTORY: I74.09 - Other arterial embolism and thrombosis of abdominal aorta --- Additional N otes or Special Instructions: Patient has open aortobifem bypass. Please evaluate graft and please US abdominal aorta with duplex and spectral Doppler Comparison: None Findings: Aorta diameter proximal: 3.0 cm. Peak systolic velocity 85.2 cm/sec. Aorta diameter mid: 2.1 cm. Peak systolic velocity 108 cm/sec. Aorta diameter distal: 1.7 cm. Occluded. Right common iliac artery maximum diameter: 1.0 x 1.3 cm. 68.0 cm/sec. Left common iliac artery maximum diameter: 1.0 x 0.7 cm. Occluded. Aortobifemoral bypass graft is patent. Proximal anastomosis has monophasic flow with a peak systolic velocity of 83.4 cm/sec bilaterally. Monophasic flow in the proximal graft bilaterally with a peak systolic velocity of 123 cm/sec on the right and 108 cm/sec on the left. Peak systolic velocity in the mid graft on the right 57.8 cm with biphasic flow and 75.7 cm/sec with biphasic flow on the left. Distal graft demonstrated triphasic flow bilaterally with peak systolic velocity of 69.7 cm/sec on the right and 93.2 cm/sec on the left. Triphasic flow at the distal anastomosis with a peak systolic velocity of 154 cm/sec on the right and 91.1 cm on the left. Bilateral out flow femoral artery vessels demonstrated triphasic flow with peak systolic velocity of 147 cm/sec on the right and 125 cm/sec on the left. Impression: 1. No abdominal aortic aneurysm. 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 Patient with known aortobifemoral bypass graft which is widely patent This document has been electronically signed by: Brock Mcmanus MD on 07/12/2024 09:40:44
--- OUTSIDE RECORDS SUMMARY | 2024-07-10 09:51 | XMS_ITS | Encounter Summary ---
Author Organization [facility] Address [address] [place] [address] Care Team Providers Care Template Reproduction Technician Name Role Phone Andrew Hansen MD Primary Care Provider [phone] [facility], Pcp Primary Care Provider [facility], Pcp Primary Care Provider Mary Becerril DO Primary Care Provider [phone] Encounter Details Date Type Department Care Team Description 11/27/2017 Tow Boat Captain Report Medical Records [address] [place] [address] Andrew Hansen MD [address] [place] [address] Social History Tobacco Use Types Packs/Day Years [...] on filedocumented in this encounter Care Teams Template Reproduction Technician Relationship Specialty Start Date End Date Andrew Hansen MD [address] [place] [address] PCP - General Internal Medicine 07/13/17 03/07/19 [facility], Pcp [address] [place] [address] PCP - General Internal Medicine 03/08/19 08/01/22 [facility], Pcp [address] [place] [address] PCP - General Internal Medicine 08/02/22 01/17/23 Mary Tejeda DO [address] [place] [address] PCP - General Internal Medicine 01/18/23 documented as of this encounter
--- OUTSIDE RECORDS SUMMARY | 2024-07-10 09:51 | XMS_ITS | Encounter Summary ---
Author Organization [facility] Address [address] [place] [address] Care Team Providers Care Wheel Alignment Mechanic Name Role Phone Andrew Hansen MD Primary Care Provider [phone] Community, Pcp Primary Care Provider Lulu christianson [facility], Pcp Primary Care Provider Mary Becerril DO Primary Care Provider [phone] Encounter Details Date Type Department Care Team Description 09/16/2017 Release of Information Medical Records [address] [place] [address] Abstract, Provider Social History Tobacco Use Types [...] on filedocumented in this encounter Care Teams Wheel Alignment Mechanic Relationship Specialty Start Date End Date Andrew Hansen MD [address] [place] [address] PCP - General Internal Medicine 07/13/17 03/07/19 [facility], Pcp [address] [place] [address] PCP - General Internal Medicine 03/08/19 08/01/22 [facility], Pcp [address] [place] [address] PCP - General Internal Medicine 08/02/22 01/17/23 Mary Tejeda, DO [address] [place] [address] PCP - General Internal Medicine 01/18/23 documented as of this encounter
--- OUTSIDE RECORDS SUMMARY | 2024-07-10 09:51 | XMS_ITS | Encounter Summary ---
Author Organization [employer] Address [address] [facility] [address] [place] [address] Care Team Providers Care Unit Manager Rn Name Role Phone Jaja Garcia MD Primary Care Provider [phone] Reason for Visit * Reason Onset Date Comments Created In Error 02/08/2024 Encounter Details Date Type Department Care Team ([facility] st Contact Info) Description 02/08/2024 Telephone [facility] [address] [place] [address] Jaja Garcia MD [address] [place] [address] Created In Error Social History Tobacco Use [...] documented as of this encounter Care Teams Unit Manager Rn Relationship Specialty Start Date End Date Jaja Garcia MD [address] [place] [address] PCP - General Family Medicine 01/05/24 Donell Ryan M.D. Consulting Physician Orthopaedic Surgery 01/05/24 [facility] 04/02/24 documented as of this encounter
--- OUTSIDE RECORDS SUMMARY | 2024-07-10 09:51 | XMS_ITS | Encounter Summary ---
Author Organization [facility] Address [address] [place] [address] Care Team Providers Care Security Project Manager Name Role Phone Andrew Hansen MD Primary Care Provider [phone] [facility], Pcp [facility] Primary Care Provider UnavailMary Sauer DO Primary Care Provider [phone] Reason for Visit * Reason Onset Date Comments Appointment-Internal Referral 12/15/2017 Encounter Details Date Type Department Care Team Description 12/15/2017 Telephone Nephrology - [place] [address] [place] [address] Hitesh Mcdonald MD [address] [place] [address] Appointment-Internal Referral Social History Tobacco Use Types Packs/Day Years Used Date Smoking Tobacco: Every Day Cigarettes 1.5 20 Smokeless Tobacco: Never Comments:varies based on wor k - rolls his own Alcohol Use Standard Drinks/Week Comments Yes 0 (1 standard drink = 0.6 oz pure alcohol) none since november - rarely prior Sex Assigned at Date Recorded Not on file Job Start Date Occupation Industry Not on file Not on file Not on file documented as of this encounter Miscellaneous Notes * Telephone Encounter - Victoria Cassidy L.P.N. - 12/21/2017 10:51 AM EDT I have tried multiple times to reach pt. Today I was able to speak to pts mother, when trying to give an appointment she refused to take it and asked that I call back at a later time. I will attempt Another call.. * Telephone Encounter - Amirah Yan - 12/15/2017 9:49 AM EDT Urgent referrral appointment not available. Please call patient to book-no open NON PUBLIC SLOTS. Appointment needed within week documented in this encounter Plan of Treatment Not on file documented as of this encounter Visit Diagnoses Not on filedocumented in this encounter Care Teams Security Project Manager Relationship Specialty Start Date End Date Andrew Hansen MD [address] [place] [address] PCP - General Internal Medicine 07/13/17 03/07/19 [facility], Pcp [address] [place] [address] PCP - General Internal Medicine 03/08/19 08/01/22 [facility], Pcp [address] [place] [address] PCP - General Internal Medicine 08/02/22 01/17/23 Mary Tejeda, [address] [place] [address] PCP - General Internal Medicine 01/18/23 documented as of this encounter
--- OUTSIDE RECORDS SUMMARY | 2024-07-10 09:51 | XMS_ITS | Clinical Summary ---
Author Organization [employer] Address [address] [facility] 7t [place] [address] Care Team Providers Care Ball Mill Operator Name Role Phone Jaja Garcia MD Primary Care Provider [phone] Allergies Active Allergy Reactions Criticality Noted Date [...] mg) Once per day. 90 tablet 3 01/05/2024 Active rosuvastatin (Crestor) 40 MG tablet Take 1 tablet (40 mg) by mouth Once per day. 90 tablet 1 02/09/2024 Active tiotropium (Spiriva HandiHaler) 18 MCG inhalation capsuleIndicati ons:Obstructive lung disease ([facility]) Place 1 capsule (18 mcg) into inhaler and inhale in the morning. 30 capsule 11 02/09/2024 Active meloxicam (Mobic) 15 MG tablet Take 1 tablet (15 mg) by mouth Once per day. 60 tablet 1 02/09/2024 Active albuterol 108 (90 Base) MCG/ACT inhalerIndicati ons:Obstructive lung disease ([facility]) INHALE 2 PUFFS BY MOUTH EVERY 4 HOURS IF NEEDED FOR WHEEZING. 18 g 2 06/10/2024 Active Active Problems Problem Noted Date Diagnosed Date Arthralgia of hip 01/05/2024 Injury of kidney 01/05/2024 Prediabetes 01/05/2024 Upper gastrointestinal hemorrhage 01/05/2024 Shortness of breath on exertion 01/05/2024 Assessment & Plan (01/09/2024 9:50 AM EDT): Reports prior hx of ME, no records. Chronic SALDIVAR/SOB, hx of heavy [...] Encounters Date Type Department Care Team Description 07/03/2024 Refill [facility] MED & PEDS [address] [place] [address] Jaja Garcia MD 06/19/2024 Orders Only [facility] External Provider, [facility] 06/08/2024 Refill [facility] [address] [place] [address] Jaja Garcia MD Obstructive lung disease ([facility]) 04/12/2024 Orders Only [facility] External Provider, [facility] from Last 3 Months Immunizations Name Administration [...] 11/04/1983 Lung Cancer Screening 2014 COVID-19 Vaccine (4 - 2023-2 5 season) [...] EDT Narrative 06/19/2024 10:21 AM EDT ? [facility] ?[address] ?[place] [address] ? CT Scan Report ? Signed ? Patient: Jabier Simpson ?MR#: [id number] ?? [id number] ? : 1965 ?Acct:[id number] ? Age/Sex: 58 / M ?ADM Date: 06/19/24 ? Loc: HO.CT ? Attending Dr: Sis Paul HOUSE PARENT ? Ordering Physician: Sis Paul NP ?? Date of Service: 06/19/24 ?? Procedure(s): CT chest wo IV con ?? Accession Number(s): [id number] ? cc: Sis Paul NP; Jaja Garcia MD ? Report Number: ?? [id number]: Total DLP = ??154.00 mGy-cm ?? EXAMINATION: [...] ??Chilango Rdz MD ??06/19/2024 10:18 AM EDT ? Dictated By: ?Chilango Rdz MD ? Signed By: ?<Electronically signed by Chilango Rdz MD in OV> ?06/19/24 1018 ? DD/ 0847 ? TD/TT: 06/19/24 0905 ? Clerical Office: ? Procedure Note Michael Chase - 06/19/[address] [address] [address] Scan Report Signed Patient: Jabier Simpson JMR#: [id number] : 1965Acct:[id number] Age/Sex: 58 / MADM Date: 06/19/24 Loc: HO.CT Attending Dr: Sis Paul HOUSE PARENT Ordering Physician: Sis Paul NP Date of Service: 06/19/24 Procedure(s): CT chest wo IV con Accession Number(s): [id number] cc: Sis Paul HOUSE PARENT; Jaja Garcia MD Report Number: [id number]: Total DLP = 154.00 mGy-cm EXAMINATION: CT [...] 06/19/24 1018 DD/ 0847 TD/TT: 06/19/24 0905 Clerical Office: [facility] External Provider IMG CT PROCEDURES Edited Result - Final * (ABNORMAL) Cologuard?? colon cancer screening (02/28/2024 2:45 PM EST) Cologuard Result Positive( A) Negative 03/10/2024 9:39 AM EST [facility] ([employer] Pharm[employer]IA #:[id number]) Comment: POSITIVE TEST RESULT. A positive Cologuard [...] (Sheba Moncada al, N Engl J Med 2014;370(14):4890-8946.) Cologuard may produce a false negative or false positive result (no colorectal cancer or precancerous polyp present at colonoscopy follow up). A negative Cologuard test result does not guarantee the absence of CRC or advanced adenoma (pre-cancer). The current Cologuard screening interval is every 3 years. ([place] Cancer Society and U.S. Multi-Society Task Force). Cologuard performance data in a 10,000 patient pivotal study using colonoscopy as the reference method can be accessed at the following location: www.[employer]/results. Additional description of the Cologuard test process, warnings and precautions can be found at www.colCalpianrd.com. Stool specimen (specimen) 02/28/2024 2:45 PM EST 02/29/2024 10:46 AM EST us Jaja Garcia MD LAB MOLECULAR DIAGNOSTICS ORD ERABLES Final Result [facility] (CLIA #:[id number]) [address] [place] [address], * (ABNORMAL) Lipid Panel, Standard (01/05/2024 2:50 PM EDT) Triglycerides 85 <150 mg/dL [facility] Comment:Desirable Triglyceri de: less than 150 mg/dLBorderline High Triglyceride 150-199 mg/dLHigh Triglyceride: 200-499 mg/dLVery High Triglyceride: greater than or equal to 5OO mg/dL Cholesterol 139 <200 mg/dL [facility] Comment:Desirable Cholestero l: less than 200 mg/dLBorderline High Cholesterol: 200-239 mg/dLHigh Cholesterol: greater than 239 mg/dL LDL Cholesterol Calculated 83 <100 mg/dL [facility] Comment:Desirable LDL: less than 100 mg/dLNear Optimal/Above Optimal LDL: 110- 129 mg/dLBorderline High LDL: 130-159 mg/dLHigh LDL: 160-189 mg/dLVery High LDL: greater than or equal to 190 mg/dL HDL Cholesterol 39(L) >40 mg/dL [facility] Comment:Desirable HDL: great er than 40 mg/dL Note: This HDL assay may give artificially low results in patients with liver disease. Blood Venous blood specimen / Unknown 01/05/2024 2:50 PM EDT 01/05/2024 5:19 PM EDT us Jaja Garcia MD LAB BLOOD ORDERABLES Final Re sult [facility] [address] [place] [address] [phone] from Last 3 Months or Most Recently Relevant to Health Maintenance Insurance [place] [address] MEDICARE Care Teams Ball Mill Operator Relationship Specialty Start Date End Date Jaja Garcia MD [address] [place] [address] PCP - General Family Medicine 01/05/24 Donell Ryan M.D. Consulting Physician Orthopaedic Surgery 01/05/24 [facility] 04/02/24
--- OUTSIDE RECORDS SUMMARY | 2024-07-10 09:51 | XMS_ITS | Encounter Summary ---
Author Organization [facility] Address [address] [place] [address] Care Team Providers Care Temporary Administrative Assistant Name Role Phone Andrew Hansen MD Primary Care Provider [phone] [facility], Pcp Primary Care Provider Lulu christianson [facility], Pcp Primary Care Provider Mary Becerril DO Primary Care Provider [phone] Encounter Details Date Type Department Care Team Description 12/18/2017 [facility] Medical Records [address] [place] [id number] [place] [address] Social History Tobacco Use Types Packs/Day Years [...] on filedocumented in this encounter Care Teams Temporary Administrative Assistant Relationship Specialty Start Date End Date Andrew Hansen MD [address] [place] [address] PCP - General Internal Medicine 07/13/17 03/07/19 [facility], Pcp [address] [place] [address] PCP - General Internal Medicine 03/08/19 08/01/22 [facility], Pcp [address] [place] [address] PCP - General Internal Medicine 08/02/22 01/17/23 Mary Tejeda, DO [address] [place] [address] PCP - General Internal Medicine 01/18/23 documented as of this encounter
--- OUTSIDE RECORDS SUMMARY | 2024-07-10 09:51 | XMS_ITS | Encounter Summary ---
Author Organization [employer] Address [address] [facility] 7t [place] [address] Care Team Providers Care Plc Controls Engineer Name Role Phone Jaja Garcia MD Primary Care Provider [phone] Reason for Visit * Reason Comments Med Refill Encounter Details Date Type Department Care Team ([facility] st Contact Info) Description 07/03/2024 Refill [facility] MED & PEDS [address] [place], [place] [phone] Jaja Garcia MD [address] [place] [address] Social History Tobacco Use Types Packs/Day Years [...] Time PHQ-9 Depression Total Score: 0 01/05/20 1:18 PM EDT documented as of this encounter Care Teams Plc Controls Engineer Relationship Specialty Start Date End Date Jaja Garcia MD [address] [place] [address] PCP - General Family Medicine 01/05/24 Donell Ryan M.D. Consulting Physician Orthopaedic Surgery 01/05/24 [facility] 04/02/24 documented as of this encounter
--- OUTSIDE RECORDS SUMMARY | 2024-07-10 09:51 | XMS_ITS | Encounter Summary ---
Author Organization [facility] Address [address] [place] [address] Care Team Providers Care Trust Advisor Name Role Phone Andrew Hansen MD Primary Care Provider [phone] [facility], Pcp Primary Care Provider Lulu christianson [facility], Pcp Primary Care Provider Mary Becerril DO Primary Care Provider [phone] Encounter Details Date Type Department Care Team Description 12/14/2017 Release of Information Medical Records [address] [place] [address] Abstract, Provider Social History Tobacco Use Types [...] on filedocumented in this encounter Care Teams Trust Advisor Relationship Specialty Start Date End Date Andrew Hansen MD [address] [place] [address] PCP - General Internal Medicine 07/13/17 03/07/19 [facility], Pcp [address] [place] [address] PCP - General Internal Medicine 03/08/19 08/01/22 [facility], Pcp [address] [place] [address] PCP - General Internal Medicine 08/02/22 01/17/23 Mary Tejeda, DO [address] [place] [address] PCP - General Internal Medicine 01/18/23 documented as of this encounter
--- OUTSIDE RECORDS SUMMARY | 2024-07-10 09:51 | XMS_ITS | Clinical Summary ---
Author Organization [address] [place] [address] Address [address] [place] [address] Phone Care Team Providers Care Photoengraving Sketch Maker Name Role Phone Physician, No Pcp Primary [...] with LVEF 50% PVD (peripheral vascular disease) (CMS/HCC V24) 11/26/2017 Overview (12/25/2023): LE arterial duplex (11/21/17):no [...] Comments OTHER SURGICAL HISTORY 2004 Right PROCEDURE: NM UNLISTED PROCEDURE LEG/ANKLE; COMMENT: tib/fib compound fracture with metal marimar, pins - [facility] trauma (Dr. Verdin) TONSILLECTOMY PROCEDURE: HISTORICAL [...] Most Recently Relevant to Health Maintenance Insurance [facility] Care Teams Photoengraving Sketch Maker Relationship Specialty Start Date End Date Physician, No Pcp PCP - General 02/14/24
--- OUTSIDE RECORDS SUMMARY | 2024-07-10 09:51 | XMS_ITS | Encounter Summary ---
Author Organization [facility] Address [address] [place] [address] Care Team Providers Care Steamer Gum Candy Name Role Phone Andrew Hansen MD Primary Care Provider [phone] [facility], Pcp Primary Care Provider Lulu Gallo, Pcp Primary Care Provider Mary Becerril DO Primary Care Provider [phone] Encounter Details Date Type Department Care Team Description 10/17/2017 Editor Producer Report Medical Records [address] [place] [address] Jelani Salazar DO Social History Tobacco Use [...] on filedocumented in this encounter Care Teams Steamer Gum Candy Relationship Specialty Start Date End Date Andrew Hansen MD [address] [place] [address] PCP - General Internal Medicine 07/13/17 03/07/19 [facility], Pcp [address] [place] [address] PCP - General Internal Medicine 03/08/19 08/01/22 [facility], Pcp [address] [place] [address] PCP - General Internal Medicine 08/02/22 01/17/23 Mary Tejeda, DO [address] [place] [address] PCP - General Internal Medicine 01/18/23 documented as of this encounter
--- OUTSIDE RECORDS SUMMARY | 2024-07-10 09:51 | XMS_ITS | Encounter Summary ---
Author Organization [facility] Address [address] [place] [address] Care Team Providers Care Assembly Operator Name Role Phone Andrew Hansen MD Primary Care Provider [phone] [facility], Pcp Primary Care Provider Lulu Gallo, Pcp Primary Care Provider Mary Becerril DO Primary Care Provider [phone] Encounter Details Date Type Department Care Team Description 09/11/2017 Box Maker Report Medical Records [address] [place] [address] Jelani Salazar DO Social History Tobacco Use [...] on filedocumented in this encounter Care Teams Assembly Operator Relationship Specialty Start Date End Date Andrew Hansen MD [address] [place] [address] PCP - General Internal Medicine 07/13/17 03/07/19 [facility], Pcp [address] [place] [address] PCP - General Internal Medicine 03/08/19 08/01/22 [facility], Pcp [address] [place] [address] PCP - General Internal Medicine 08/02/22 01/17/23 Mary Tejeda, DO [address] [place] [address] PCP - General Internal Medicine 01/18/23 documented as of this encounter
--- OUTSIDE RECORDS SUMMARY | 2024-07-10 09:51 | XMS_ITS | Encounter Summary ---
Author Organization [facility] Address [address] [place] [address] Care Team Providers Care Autocad Draftsman Name Role Phone Mary Tejeda DO Primary Care Provider [phone] Reason for Visit * Reason Onset Date Comments Letter 06/16/2023 Encounter Details Date Type Department Care Team Description 06/16/2023 Telephone Adult Medicine [address] [address] Mary Tejeda DO [address] [place] [address] Letter Social History Tobacco Use Types Packs/Day Years [...] encounter Miscellaneous Notes * Telephone Encounter - Greta Cheung APRN - 06/16/2023 11:54 AM EDT signed * Telephone Encounter - Caron Tolbert M.A. - 06/16/2023 11:07 AM EDT Patient seen today, letter pended * Telephone Encounter - Angela Mode - 06/16/2023 11:00 AM EDT Letter requested for: jury duty Reason for letter: excuse badkermit number [id number] Specific notations needed in body of letter: Date needed for completion: MAYCO When completed: Fax to other office/MD at fax # [phone] documented in this encounter Plan of Treatment Not on file documented as of this encounter Visit Diagnoses Not on filedocumented in this encounter Care Teams Autocad Draftsman Relationship Specialty Start Date End Date Mary Tejeda, [address] [address] PCP - General Internal Medicine 01/18/23 documented as of this encounter
== END 2024-07-10 09:04 | disposition home or self-care (01) ==
LOC: HO.US 09:03
PROVIDERS: PCP Family Medicine; Visit Provider Surgery Vascular Surgery
DX: I74.09 Other arterial embolism and thrombosis of abdominal aorta (principal); R19.7 Diarrhea, unspecified
CPT/HCPCS: 76706; 99212

== ENCOUNTER → 2024-07-10 09:04 | Outpatient (BNV) | payer OTHER, SELFPAY | PROVIDERS: PCP Family Medicine; Visit Provider Radiology Diagnostic Radiology | DX: I74.09 Other arterial embolism and thrombosis of abdominal aorta (principal); I74.5 Embolism and thrombosis of iliac artery | CPT/HCPCS: 76706 ==

== ENCOUNTER 2024-07-10 10:05 | Outpatient (AMB) | payer MEDICARE, SELFPAY ==
--- NOTE | 2024-07-10 10:09 | MHC.OFFVIS ---
Vital Signs 07/10/24 10:10 Height 5 ft 10 in Weight 155 lb BMI 22.2 BP 146/82 H Blood Pressure Location Lt brachial Position Sitting Pulse 80 Pulse Source Pulse Oximeter Pulse Oximetry (%) 100 Oxygen Delivery Method Room Air Intake Visit Reasons: Positive Cologuard Intake Note: NEW PATIENT for colo screening. Positive cologuard. Initial screening. Chief Complaint; C/O intermittent constipation after having procedure in March 2024. Pt also reports intermittent hematochezia. No additional sx or concerns. No pertinent FMHx. Meteorology Instructor Required: No Accompanied by: Self / Same As Patient Allergies bee venom protein (honey bee) Allergy (Severe, Verified 07/10/24 10:10) Anaphylaxis codeine Adverse Reaction (Mild, Verified 07/10/24 10:10) Vomiting HPI HPI Positive Cologuard: Details: 58 year old? male here today for pre colonoscopy screening.? Patient was sent to us by his PCP.? This is his first colonoscopy screening.? Patient had positive Cologuard. Patient denies any gastrointestinal symptoms in the past or at present.? Denies any personal or family history of gastrointestinal disease, colon polyps, or CRC.? Denies history of difficulty with sedation or anesthesia in the past.? Negative for history of sleep apnea.? Denies any history of cardiac, renal, pulmonary, or hepatic disease.?? No history of infectious? diseases like hepatitis A, B, C, HIV or tuberculosis.? Patient is on low-dose aspirin. History of aortofemoral bypass in March of [address] Sierra. No trouble with anesthesia then. History of 3 pack a day smoker, quit smoking after surgery [facility] Medical History Aortoiliac occlusive disease PAD (peripheral artery disease) Smoker COPD (chronic obstructive pulmonary disease) Pulmonary nodules History of femoral angiogram (02/07/24) Hx: bad fall (~2021) HLD (hyperlipidemia) Heart attack (~2017) Surgical History (Updated 07/10/24 @ 19:19 by Orin Herron [facility]) Hx of aorto-femoral bypass Hx of myringotomy Hx of tonsillectomy History of surgery on lower extremity (~2003) H/O tooth extraction Family History Mother History of quadruple bypass Father Aneurysm Social History Household Members: None Housing: House Are you a primary resident care aid to a significant other at home: No Do you presently have visiting nurse or other home services: No 75 years or older and lives alone: No Alcohol intake: current Alcohol intake frequency: a few times a week Alcohol type: beer Comment: aware of trip hazard Patient Tobacco Use Status: Current everyday Tobacco user Tobacco use type: Cigarette Cigarette Packs Per Day: 1 Cigarettes Per Day: 1 Years Smoked: 40 e-Cigarette/Vaping Use: Never Used Second Hand Smoke Exposure: No Substance Use Type: Marijuana service: No Review of Systems Const Denies weight gain and Denies weight loss ENT Reports no additional complaints, Denies dysphagia and Denies odynophagia Card Reports no additional complaints Resp Reports no additional complaints GI Denies abdominal pain, Denies belching, Denies melena, Denies bloating, Denies change in bowel habits, Denies dysphagia, Denies excessive flatus, Denies dyspepsia, Denies heartburn, Denies diarrhea, Denies loose stools, Denies nausea, Denies odynophagia and Denies vomiting Reports no additional complaints Musc Reports no additional complaints Neuro Reports no additional complaints Psych Reports no additional complaints Endo Reports no additional complaints Physical Exam Vital Signs: Last Vital Signs Pulse 80 07/10/24 10:10 BP 146/82 H 07/10/24 10:10 Pulse Ox 100 07/10/24 10:10 Oxygen Delivery Method Room Air 07/10/24 10:10 BMI result Body Mass Index 22.2 Const General: healthy appearing, no acute distress and well developed Nutritional Appearance: well nourished Orientation/consciousness: patient oriented x3 Resp Effort & Inspection: normal respiratory effort, able to speak in complete sentences, no tracheal deviation and symmetric chest movement Auscultation: clear to auscultation bilaterally Cardio Rate: regular rate GI Inspection: Yes normal to inspection and No distended Palpation (GI): Soft to palpation, not firm, nontender and No hepatosplenomegaly present Auscultation: normal bowel sounds General: Yes no CVA tenderness Back/Spine/Pelvis Back: no CVA tenderness Skin General skin exam: elasticity normal, turgor normal and dry skin Neuro General: patient oriented x3 Psych Appearance: grossly normal Mental Status: mental status grossly normal Assessment & Plan Assessment & Plan (1) Positive colorectal cancer screening using Cologuard test: Code(s): R19.5 - Other fecal abnormalities (2) Screen for colon cancer: Code(s): Z12.11 - Encounter for screening for malignant neoplasm of colon Plan Patient denies any GI, cardiac or respiratory symptoms.? Denies any issues with anesthesia in the past.? Denies any history of sleep apnea.? No history infectious diseases in the past or present.? Patient is on low-dose aspirin. He will speak to Dr. Sierra at his next appointment when would be a good time for him to go for procedure.? No family or personal history of colon cancer or polyps.? Patient denies melena, hematochezia, unintentional weight loss or ribbon like stools.? Discussed at length the pre-procedure,? prep, diet & medications as well as what to expect prior, during and after the procedure.?? Stressed the importance of good bowel prep.? Recommended the use of Vaseline or Calmoseptine OTC & baby wipes with bowel movements to promote comfort.? ?Patient verbalizes understanding and agrees to plan of care.? He was given the opportunity to ask questions and all questions answered.? We will see him after the procedure.? Medications: New bisacodyl (Dulcolax (bisacodyl)) take 4 tabs at noon the day before your colonoscopy 20 mg (4 x 5 mg) PO ONCE 1 day 4 tabs 0RF Z12.11 - Encounter for screening for malignant neoplasm of colon polyethylene glycol 3350 (Miralax) As directed by gastroenterology department at [facility] 238 grams PO ONCE 238 grams 0RF Z12.11 - Encounter for screening for malignant neoplasm of colon Coding Level of Care Code New Pt Level 3 (89821) Diagnoses Positive colorectal cancer screening using Cologuard test R19.5 Screen for colon cancer Z12.11 Time Spent (min) 40 Comment 30 minutes spent with patient and additional 10 minutes spent reviewing his records
[2024-07-10 10:10] VITALS: BP 146/82; PULSE 80; O2SAT 100; BMI 22.2
--- OUTSIDE RECORDS SUMMARY | 2024-07-10 11:40 | XMS_ITS | Encounter Summary ---
Author Organization [employer] Address [address] [facility] [address]t [place] [address] Care Team Providers Care Body Rolling Machine Tender Name Role Phone Jaja Garcia MD Primary Care Provider [phone] Reason for Visit * Reason Onset Date Comments Created In Error 02/08/2024 Encounter Details Date Type Department Care Team ([facility] st Contact Info) Description 02/08/2024 Telephone [facility] MEDICINE [address] [place] [address] Jaja Garcia MD [address] [place] [address] Created In Error Social History Tobacco Use [...] documented as of this encounter Care Teams Body Rolling Machine Tender Relationship Specialty Start Date End Date Jaja Garcia MD [address] [place] [address] PCP - General Family Medicine 01/05/24 Donell Ryan M.D. Consulting Physician Orthopaedic Surgery 01/05/24 [facility] 04/02/24 documented as of this encounter
--- OUTSIDE RECORDS SUMMARY | 2024-07-10 11:40 | XMS_ITS | Encounter Summary ---
Author Organization [employer] Address [address] [facility] [address]t [place] [address] Care Team Providers Care Theatrical Trouper Name Role Phone Jaja Garcia MD Primary Care Provider [phone] Reason for Visit * Reason Comments Med Refill Encounter Details Date Type Department Care Team ([facility] st Contact Info) Description 07/03/2024 Refill [facility] MED & PEDS [address] [place], [place] [phone] Jaja Garcia MD [address] [place] [address] Social History Tobacco Use Types Packs/Day Years [...] documented as of this encounter Care Teams Theatrical Trouper Relationship Specialty Start Date End Date Jaja Garcia MD [address] [place] [address] PCP - General Family Medicine 01/05/24 Donell Ryan M.D. Consulting Physician Orthopaedic Surgery 01/05/24 [facility] 04/02/24 documented as of this encounter
--- OUTSIDE RECORDS SUMMARY | 2024-07-10 11:40 | XMS_ITS | Clinical Summary ---
Author Organization [address] [place] [address] Address [address] [place] [address] Phone Care Team Providers Care Distillery Miller Helper Name Role Phone Physician, No Pcp Primary [...] Comments OTHER SURGICAL HISTORY 2004 Right PROCEDURE: DE UNLISTED PROCEDURE LEG/ANKLE; COMMENT: tib/fib compound fracture with metal [place], pins - [facility] trauma (Dr. Verdin) TONSILLECTOMY PROCEDURE: HISTORICAL TONSILLECTOMY [...] Most Recently Relevant to Health Maintenance Insurance [facility] Care Teams Distillery Miller Helper Relationship Specialty Start Date End Date Physician, No Pcp PCP - General 02/14/24
--- OUTSIDE RECORDS SUMMARY | 2024-07-10 11:40 | XMS_ITS | Clinical Summary ---
Author Organization [employer] Address [address] [facility] [address] [place] [address] Care Team Providers Care Clinic Specialist Name Role Phone Jaja Garcia MD Primary Care Provider [phone] Allergies Active Allergy Reactions Criticality Noted Date [...] 18 MCG inhalation capsuleIndicati ons:Obstructive lung disease ([facility]) Place 1 capsule (18 mcg) into inhaler and inhale in the morning. 30 capsule 11 02/09/2024 Active meloxicam (Mobic) 15 MG tablet Take 1 tablet (15 mg) by mouth Once per day. 60 tablet 1 02/09/2024 Active albuterol 108 (90 Base) MCG/ACT inhalerIndicati ons:Obstructive lung disease ([facility]) INHALE 2 PUFFS BY MOUTH EVERY 4 HOURS IF NEEDED FOR WHEEZING. 18 g 2 06/10/2024 Active Active Problems Problem Noted Date Diagnosed Date Arthralgia of hip 01/05/2024 Injury of kidney 01/05/2024 Prediabetes 01/05/2024 Upper gastrointestinal hemorrhage 01/05/2024 Shortness of breath on exertion 01/05/2024 Assessment & Plan (01/09/2024 9:50 AM EDT): Reports prior hx of [place], no records. Chronic SALDIVAR/SOB, hx of heavy [...] Type Department Care Team Description 07/03/2024 Refill [facility] [address] [place] [address] Jaja Garcia MD 06/19/2024 Orders Only [facility] External Provider, [facility] 06/08/2024 Refill [facility] [address] [place] [address] Jaja Garcia MD Obstructive lung disease ([facility]) 04/12/2024 Orders Only [facility] External Provider, [facility] from Last 3 Months Immunizations Name Administration [...] EDT Narrative 06/19/2024 10:21 AM EDT ? [facility] ?[address] ?[place] [address] ? CT Scan Report ? Signed ? Patient: Jabier Simpson ?MR#: [id number] ?? [id number] ? : 1965 ?Acct:[id number] ? Age/Sex: 58 / M ?ADM Date: 06/19/24 ? Loc: HO.CT ? Attending Dr: Sis Paul SLIVER CUTTER ? Ordering Physician: Sis Paul NP ?? Date of Service: 06/19/24 ?? Procedure(s): CT chest wo IV con ?? Accession Number(s): [id number] ? cc: Sis Paul NP; Jaja Garcia MD ? Report Number: ?? [id number]: Total DLP = ??154.00 mGy-cm ?? EXAMINATION: [...] DD/ 0847 ? TD/TT: 06/19/24 0905 ? Production Lead: ? Procedure Note Michael Chase - 06/19/[address] [address] [address] Scan Report Signed Patient: Jabier Simpson JMR#: [id number] : 1965Acct:[id number] Age/Sex: 58 / MADM Date: 06/19/24 Loc: HO.CT Attending Dr: Sis Paul SLIVER CUTTER Ordering Physician: Sis Paul NP Date of Service: 06/19/24 Procedure(s): CT chest wo IV con Accession Number(s): [id number] cc: Sis Paul SLIVER CUTTER; Jaja Garcia MD Report Number: [id number]: Total DLP = 154.00 mGy-cm EXAMINATION: CT [...] 06/19/24 1018 DD/ 0847 TD/TT: 06/19/24 0905 Production Lead: [facility] External Provider IMG CT PROCEDURES Edited Result - Final * (ABNORMAL) Cologuard?? colon cancer screening (02/28/2024 2:45 PM EST) Cologuard Result Positive( A) Negative 03/10/2024 9:39 AM EST [facility] ([employer]IA #:[id number]) Comment: POSITIVE TEST RESULT. A positive Cologuard [...] (Sheba Moncada al, N Engl J Med 2014;370(14):8202-0035.) Cologuard may produce a false negative or false positive result (no colorectal cancer or precancerous polyp present at colonoscopy follow up). A negative Cologuard test result does not guarantee the absence of CRC or advanced adenoma (pre-cancer). The current Cologuard screening interval is every 3 years. ([place] [employer] Society and U.S. Multi-Society Task Force). Cologuard performance data in a 10,000 patient pivotal study using colonoscopy as the reference method can be accessed at the following location: [email or web address]/results. Additional description of the Cologuard test process, warnings and precautions can be found at www.colCoContestrd.com. Stool specimen (specimen) 02/28/2024 2:45 PM EST 02/29/2024 10:46 AM EST us Jaja Garcia MD LAB MOLECULAR DIAGNOSTICS ORD ERABLES Final Result [facility] (CLIA #:[id number]) [address] [place] [address], * (ABNORMAL) Lipid Panel, Standard (01/05/2024 2:50 PM EDT) Triglycerides 85 <150 mg/dL [facility] Comment:Desirable Triglyceri de: less than 150 mg/dLBorderline High Triglyceride 150-199 mg/dLHigh Triglyceride: 200-499 mg/dLVery High Triglyceride: greater than or equal to 5OO mg/dL Cholesterol 139 <200 mg/dL [facility] Comment:Desirable Cholestero l: less than 200 mg/dLBorderline High Cholesterol: 200-239 mg/dLHigh Cholesterol: greater than 239 mg/dL LDL Cholesterol Calculated 83 <100 mg/dL [facility] Comment:Desirable LDL: less than 100 mg/dLNear Optimal/Above Optimal LDL: 110- 129 mg/dLBorderline High LDL: 130-159 mg/dLHigh LDL: 160-189 mg/dLVery High LDL: greater than or equal to 190 mg/dL HDL Cholesterol 39(L) >40 mg/dL [facility] Comment:Desirable HDL: great er than 40 mg/dL Note: This HDL assay may give artificially low results in patients with liver disease. Blood Venous blood specimen / Unknown 01/05/2024 2:50 PM EDT 01/05/2024 5:19 PM EDT us Jaja Garcia MD LAB BLOOD ORDERABLES Final Re sult [facility] [address] [place] [address] [phone] from Last 3 Months or Most Recently Relevant to Health Maintenance Insurance [address] [place] [address] MEDICARE Care Teams Clinic Specialist Relationship Specialty Start Date End Date Jaja Garcia MD [address] [place] [address] PCP - General Family Medicine 01/05/24 Donell Ryan M.D. Consulting Physician Orthopaedic Surgery 01/05/24 [facility] 04/02/24
== END 2024-07-10 10:43 | disposition home or self-care (01) ==
LOC: HO.HGI 10:06
PROVIDERS: PCP Family Medicine; Visit Provider Nurse Practitioner Family
DX: Z01.818 Encounter for other preprocedural examination (principal); Z12.11 Encounter for screening for malignant neoplasm of colon; R19.5 Other fecal abnormalities
CPT/HCPCS: 99024

== ENCOUNTER 2024-07-18 08:22 | Outpatient (AMB) | payer OTHER, SELFPAY ==
--- OUTSIDE RECORDS SUMMARY | 2024-07-18 08:32 | XMS_ITS | Encounter Summary ---
Author Organization [employer] Address [address] [facility] [address] [place] [address] Care Team Providers Care Measuring Clerk Name Role Phone Jaja Garcia MD Primary Care Provider [phone] Reason for Visit * Reason Onset Date Comments Created In Error 02/08/2024 Encounter Details Date Type Department Care Team ([facility] st Contact Info) Description 02/08/2024 Telephone [facility] MEDICINE [address] [place] [address] Jaja Garcia MD [address] [place] [address] Created In Error Social History Tobacco Use [...] documented as of this encounter Care Teams Measuring Clerk Relationship Specialty Start Date End Date Jaja Garcia MD [address] [place] [address] PCP - General Family Medicine 01/05/24 Donell Ryan M.D. Consulting Physician Orthopaedic Surgery 01/05/24 [facility] 04/02/24 documented as of this encounter
--- OUTSIDE RECORDS SUMMARY | 2024-07-18 08:32 | XMS_ITS | Clinical Summary ---
Author Organization [facility] Address [address] [place] [address] Care Team Providers Care Acoustical Installer Name Role Phone Rebeka Tejedamana Primary Care Provider [phone] Allergies Active Allergy Reactions Severity Noted Date [...] HEPATITIS C SCREENING Completed 10/19/2017 Care Teams Acoustical Installer Relationship Specialty Start Date End Date Mary Tejeda, DO [address] [place] [address] PCP - General Internal Medicine 01/18/23
--- OUTSIDE RECORDS SUMMARY | 2024-07-18 08:32 | XMS_ITS | Clinical Summary ---
Author Organization [address] [place] [address] Address [address] [place] [address] Phone Care Team Providers Care Supply Chain Analyst Name Role Phone Physician, No Pcp Primary [...] Comments OTHER SURGICAL HISTORY 2004 Right PROCEDURE: [place] UNLISTED PROCEDURE LEG/ANKLE; COMMENT: tib/fib compound fracture with metal [place], pins - [facility] trauma (Dr. Verdin) TONSILLECTOMY PROCEDURE: HISTORICAL [...] Most Recently Relevant to Health Maintenance Insurance [facility] Care Teams Supply Chain Analyst Relationship Specialty Start Date End Date Physician, No Pcp PCP - General 02/14/24
--- OUTSIDE RECORDS SUMMARY | 2024-07-18 08:32 | XMS_ITS | Encounter Summary ---
Author Organization [employer] Address [address] [facility] [address] [place] [address] Care Team Providers Care Welcome Wagon Hostess Name Role Phone Jaja Garcia MD Primary Care Provider Reason for Visit * Reason Comments Med Refill Encounter Details Date Type Department Care Team ([facility] st Contact Info) Description 07/03/2024 Refill [facility] & PEDS [address] [place], [place] [phone] Jaja Garcia MD [address] [place] [address] Social History Tobacco Use Types Packs/Day Years [...] documented as of this encounter Care Teams Welcome Wagon Hostess Relationship Specialty Start Date End Date Jaja Garcia MD [address] [place] [address] PCP - General Family Medicine 01/05/24 Donell Ryan M.D. Consulting Physician Orthopaedic Surgery 01/05/24 [facility] 04/02/24 documented as of this encounter
--- OUTSIDE RECORDS SUMMARY | 2024-07-18 08:32 | XMS_ITS | Encounter Summary ---
Author Organization [facility] Address [address] [place] [address] Care Team Providers Care Derivatives Trader Name Role Phone Andrew Hansen MD Primary Care Provider [phone] Community, Pcp Primary Care Provider Lulu Gallo, Pcp Primary Care Provider Mary Becerril DO Primary Care Provider [phone] Encounter Details Date Type Department Care Team Description 10/17/2017 Batch And Furnace Manager Report Medical Records [address] [place] [address] Jelani Salazar DO Social History Tobacco Use [...] on filedocumented in this encounter Care Teams Derivatives Trader Relationship Specialty Start Date End Date Andrew Hansen MD [address] [place] [address] PCP - General Internal Medicine 07/13/17 03/07/19 [facility], Pcp [address] [place] [address] PCP - General Internal Medicine 03/08/19 08/01/22 [facility], Pcp [address] [place] [address] PCP - General Internal Medicine 08/02/22 01/17/23 Mary Tejeda, DO [address] [place] [address] PCP - General Internal Medicine 01/18/23 documented as of this encounter
--- OUTSIDE RECORDS SUMMARY | 2024-07-18 08:32 | XMS_ITS | Encounter Summary ---
Author Organization [facility] Address [address] [place] [address] Care Team Providers Care Sprayer Operator Name Role Phone Andrew Hansen MD Primary Care Provider [phone] Community, Pcp [facility], Pcp Primary Care Provider Mary Becerril DO Primary Care Provider [phone] Reason for Visit * Reason Onset Date Comments Post Hospital Admission Outreach 12/07/2017 Encounter Details Date Type Department Care Team Description 12/07/2017 Telephone Adult Medicine [address] [address] Andrew Hansen MD [address] [place] [address] Post Hospital Admission Outreach Social History Tobacco [...] to return call to Adult Medicine in [place] Patient was discharged from: [facility] on 12/06/17. Patient in need of [...] on filedocumented in this encounter Care Teams Sprayer Operator Relationship Specialty Start Date End Date Andrew Hansen MD [address] [place] [address] PCP - General Internal Medicine 07/13/17 03/07/19 [facility], Pcp [address] [place] [address] PCP - General Internal Medicine 03/08/19 08/01/22 [facility], Pcp [address] [place] [address] PCP - General Internal Medicine 08/02/22 01/17/23 Mary Tejeda, [address] [place] [address] PCP - General Internal Medicine 01/18/23 documented as of this encounter
--- OUTSIDE RECORDS SUMMARY | 2024-07-18 08:32 | XMS_ITS | Clinical Summary ---
Author Organization [employer] Address [address] [place] [address] Care Team Providers Care Asset Protection Lead Name Role Phone Jaja Garcia MD Primary Care Provider [phone] Allergies Active Allergy Reactions Criticality Noted Date [...] 18 MCG inhalation capsuleIndicati ons:Obstructive lung disease ([facility]) Place 1 capsule (18 mcg) into inhaler and inhale in the morning. 30 capsule 11 02/09/2024 Active meloxicam (Mobic) 15 MG tablet Take 1 tablet (15 mg) by mouth Once per day. 60 tablet 1 02/09/2024 Active albuterol 108 (90 Base) MCG/ACT inhalerIndicati ons:Obstructive lung disease ([facility]) INHALE 2 PUFFS BY MOUTH EVERY 4 HOURS IF NEEDED FOR WHEEZING. 18 g 2 06/10/2024 Active Active Problems Problem Noted Date Diagnosed Date Arthralgia of hip 01/05/2024 Injury of kidney 01/05/2024 Prediabetes 01/05/2024 Upper gastrointestinal hemorrhage 01/05/2024 Shortness of breath on exertion 01/05/2024 Assessment & Plan (01/09/2024 9:50 AM EDT): Reports prior hx of MN, no records. Chronic SALDIVAR/SOB, hx of heavy [...] Type Department Care Team Description 07/03/2024 Refill [facility] [address] [place] [address] Jaja Garcia MD 06/19/2024 Orders Only [facility] External Provider, [facility] 06/08/2024 Refill [facility] [address] [place] [address] Jaja Garcia MD Obstructive lung disease ([facility]/HCC) from Last 3 Months Immunizations Name Administration [...] (2023-2 5 season) 2023 03/01/2021, 07/31/2020, 07/10/2020 Abdominal Aortic Aneurysm (AAA) Screening 07/17/2024 07/12/2024 Influenza Vaccine (#1) 2024 Postp oned from [...] Procedure Name Priority Date/Time Associated Diagnosis Comments US ABDOMINAL AORTIC ANEURYSM Routine 07/12/2024 9:[address] CHEST WO CONTRAST Routine 06/19/2024 8:47 AM EDT LAB COLOGUARD?? COLON CANCER SCREEN Routine 02/28/2024 2:45 PM EST Screening for colon cancer LIPID PANEL, STANDARD Routine 01/05/2024 2:50 PM EDT PVD (peripheral vascular disease) (CMS/HCC) from Last 3 Months or Most Recently Relevant to Health Maintenance Results * US ABDOMINAL AORTIC ANEURYSM (07/12/2024 9:40 AM EDT) Anatomical Region Laterality Modality Abdomen Ultrasound 07/12/2024 9:40 AM EDT Narrative 07/12/2024 9:42 AM EDT ? [facility] ?[address] ?[place] [address] ? Ultrasound Report ? Signed ? Patient: Jabier Simpson ?MR#: [id number] ?? [id number] ? : 1965 ?Acct:[id number] ? Age/Sex: 58 / M ?ADM Date: 07/10/24 ? Loc: HO.US ? Attending Dr: Everton Sierra MD ? Ordering Physician: Everton Sierra MD ?? Date of Service: 07/10/24 ?? Procedure(s): US abdominal aortic aneurysm ?? Accession Number(s): [id number] ? cc: Everton Sierra MD; Jaja Garcia MD ? 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 ??Please evaluate graft and please ? US abdominal aorta with duplex and spectral Doppler ? Comparison: None ? Findings: ? Aorta diameter proximal: 3.0 cm. Peak systolic velocity 85.2 cm/sec. ?? Aorta diameter mid: 2.1 cm. Peak systolic velocity 108 cm/sec. ?? Aorta diameter distal: 1.7 cm. Occluded. ? Right common iliac artery maximum diameter: 1.0 x 1.3 cm. 68.0 cm/sec. ?? Left common iliac artery maximum diameter: 1.0 x 0.7 cm. Occluded. ? Aortobifemoral bypass graft is patent. Proximal anastomosis has monophasic ?? flow with a peak systolic velocity of 83.4 cm/sec bilaterally. Monophasic ?? flow in the proximal graft bilaterally with a peak systolic velocity of ?? 123 cm/sec on the right and 108 cm/sec on the left. Peak systolic velocity ?? in the mid graft on the right 57.8 cm with biphasic flow and 75.7 cm/sec ?? with biphasic flow on the left. Distal graft demonstrated triphasic flow ?? bilaterally with peak systolic velocity of 69.7 cm/sec on the right and ?? 93.2 cm/sec on the left. Triphasic flow at the distal anastomosis with a ?? peak systolic velocity of 154 cm/sec on the right and 91.1 cm on the left. ?? Bilateral out flow femoral artery vessels demonstrated triphasic flow with ?? peak systolic velocity of 147 cm/sec on the right and 125 cm/sec on the ?? left. ? Impression: ?? 1. No abdominal aortic aneurysm. 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 Patient with known ?? aortobifemoral bypass graft which is widely patent ? This document has been electronically signed by: Brock Mcmanus MD on ?? 07/12/2024 09:40:44 ? Dictated By: ?Brock Mcmanus MD ? Signed By: ?<Electronically signed by Brock Mcmanus MD in OV> ?07/12/24 0941 ? DD/ ? TD/TT: 07/12/24939 ? Feather Mixer: ? Procedure Note Rena, Michael - 07/12/2024 [place] [address] Ultrasound Report Signed Patient: Jabier Simpson JMR#: [id number] : 1965Acct:[id number] Age/Sex: 58 / MADM Date: 07/10/24 Loc: HO.US Attending Dr: Everton Sierra MD Ordering Physician: Everton Sierra MD Date of Service: 07/10/24 Procedure(s): US abdominal aortic aneurysm Accession Number(s): [id number] cc: Everton Sierra MD; Jaja Garcia MD CLINICAL HISTORY: I74.09 - Other arterial embolism and thrombosis ofabdominal aorta --- Additional Notes or Special Instructions: Patient has open aortobifem bypass. Pleaseevaluate graft and please US abdominal aorta with duplex and spectral Doppler Comparison: None Findings: Aorta diameter proximal: 3.0 cm. Peak systolic velocity 85.2 cm/sec. Aorta diameter mid: 2.1 cm. Peak systolic velocity 108 cm/sec. Aorta diameter distal: 1.7 cm. Occluded. Right common iliac artery maximum diameter: 1.0 x 1.3 cm. 68.0 cm/sec. Left common iliac artery maximum diameter: 1.0 x 0.7 cm. Occluded. Aortobifemoral bypass graft is patent. Proximal anastomosis has monophasic flow with a peak systolic velocity of 83.4 cm/sec bilaterally. Monophasic flow in the proximal graft bilaterally with a peak systolic velocity of 123 cm/sec on the right and 108 cm/sec on the left. Peak systolic velocity in the mid graft on the right 57.8 cm with biphasic flow and 75.7 cm/sec with biphasic flow on the left. Distal graft demonstrated triphasic flow bilaterally with peak systolic velocity of 69.7 cm/sec on the right and 93.2 cm/sec on the left. Triphasic flow at the distal anastomosis with a peak systolic velocity of 154 cm/sec on the right and 91.1 cm on the left. Bilateral out flow femoral artery vessels demonstrated triphasic flow with peak systolic velocity of 147 cm/sec on the right and 125 cm/sec on the left. Impression: 1. No abdominal aortic aneurysm. 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 Patient with known aortobifemoral bypass graft which is widely patent This document has been electronically signed by: Brock Mcmanus MD on 07/12/2024 09:40:44 Dictated By: Brock Mcmanus MD Signed By: <Electronically signed by Brock Mcmanus MD in OV> 07/12/24 0941 DD/ 0940 TD/TT: 07/12/24 0940 Feather Mixer: [facility] External Provider IMG US PROCEDURES Edited Result - Final * CT Chest w/o Contrast (06/19/2024 8:47 AM EDT) Anatomical Region Laterality Modality Body, Chest Computed Tomogra phy 06/19/2024 8:47 AM EDT Narrative 06/19/2024 10:21 AM EDT ? [facility] ?[address] ?[place] [address] ? CT Scan Report ? Signed ? Patient: Dusseault,Jabier J ?MR#: [id number] ?? [id number] ? : 1965 ?Acct:[id number] ? Age/Sex: 58 / M ?ADM Date: 04/02/25 ? Loc: HO.CT ? Attending Dr: Sis Paul RN PALLIATIVE ? Ordering Physician: Sis Paul NP ?? Date of Service: 06/19/24 ?? Procedure(s): CT chest wo IV con ?? Accession Number(s): [id number] ? cc: Sis Paul NP; Jaja Garcia MD ? Report Number: ?? [id number]: Total DLP = ??154.00 mGy-cm ?? EXAMINATION: [...] DD/ 0847 ? TD/TT: 06/19/24 0905 ? Feather Mixer: ? Procedure Note Dontyroneter, Image - 06/19/[address] [address] [address] Scan Report Signed Patient: Jabier Simpson JMR#: [id number] : 1965Acct:[id number] Age/Sex: 58 / MADM Date: 06/19/24 Loc: HO.CT Attending Dr: Sis Paul NP Ordering Physician: Sis Paul NP Date of Service: 06/19/24 Procedure(s): CT chest wo IV con Accession Number(s): [id number] cc: Sis Paul RN PALLIATIVE; Jaja Garcia MD Report Number: [id number]: Total DLP = 154.00 mGy-cm EXAMINATION: CT [...] 06/19/24 1018 DD/ 0847 TD/TT: 06/19/24 0905 Feather Mixer: [facility] External Provider IMG CT PROCEDURES Edited Result - Final * (ABNORMAL) Cologuard?? colon cancer screening (02/28/2024 2:45 PM EST) Cologuard Result Positive( A) Negative 03/10/2024 9:39 AM EST [facility] (CLIA #:[id number]) Comment: POSITIVE TEST RESULT. A positive Cologuard [...] screened with both Cologuard and colonoscopy. (Sheba Byrd et al, N Engl J Med 2014;370(14):0519-4509.) Cologuard may produce a false negative or false positive result (no colorectal cancer or precancerous polyp present at colonoscopy follow up). A negative Cologuard test result does not guarantee the absence of CRC or advanced adenoma (pre-cancer). The current Cologuard screening interval is every 3 years. ([employer] and U.S. Multi-Society Task Force). Cologuard performance data in a 10,000 patient pivotal study using colonoscopy as the reference method can be accessed at the following location: [email or web address].Zondle/results. Additional description of the Cologuard test process, warnings and precautions can be found at www.DailyLookrd.com. Stool specimen (specimen) 02/28/2024 2:45 PM EST 02/29/2024 10:46 AM EST us Jaja Garcia MD LAB MOLECULAR DIAGNOSTICS ORD ERABLES Final Result [facility] (CLIA #:[id number]) [address] [address], * (ABNORMAL) Lipid Panel, Standard (01/05/2024 2:50 PM EDT) Triglycerides 85 <150 mg/dL [facility] Comment:Desirable Triglyceri de: less than 150 mg/dLBorderline High Triglyceride 150-199 mg/dLHigh Triglyceride: 200-499 mg/dLVery High Triglyceride: greater than or equal to 5OO mg/dL Cholesterol 139 <200 mg/dL [facility] Comment:Desirable Cholestero l: less than 200 mg/dLBorderline High Cholesterol: 200-239 mg/dLHigh Cholesterol: greater than 239 mg/dL LDL Cholesterol Calculated 83 <100 mg/dL [facility] Comment:Desirable LDL: less than 100 mg/dLNear Optimal/Above Optimal LDL: 110- 129 mg/dLBorderline High LDL: 130-159 mg/dLHigh LDL: 160-189 mg/dLVery High LDL: greater than or equal to 190 mg/dL HDL Cholesterol 39(L) >40 mg/dL [facility] Comment:Desirable HDL: great er than 40 mg/dL Note: This HDL assay may give artificially low results in patients with liver disease. Blood Venous blood specimen / Unknown 01/05/2024 2:50 PM EDT 01/05/2024 5:19 PM EDT Jaja Garcia MD LAB BLOOD ORDERABLES Final Re sult [facility] [address] [place] [phone] from Last 3 Months or Most Recently Relevant to Health Maintenance Insurance [facility] MEDICARE Care Teams Asset Protection Lead Relationship Specialty Start Date End Date Jaja Garcia MD [address] [place] [address] PCP - General Family Medicine 01/05/24 Donell Ryan M.D. Consulting Physician Orthopaedic Surgery [facility]
--- OUTSIDE RECORDS SUMMARY | 2024-07-18 08:32 | XMS_ITS | Encounter Summary ---
Author Organization [facility] Address [address] [place] [address] Care Team Providers Care Top Former Name Role Phone Mary Tejeda DO Primary Care Provider [phone] Reason for Visit * Reason Onset Date Comments Letter 06/16/2023 Encounter Details Date Type Department Care Team Description 06/16/2023 Telephone Adult Medicine [address] [address] Mary Tejeda DO [address] [place] [address] Letter Social History Tobacco Use Types Packs/Day [...] duty Reason for letter: excuse badkermit number [id number] Specific notations needed in body of letter: Date needed for completion: MAYCO When completed: Fax to other office/MD at fax # [phone] documented in this encounter Plan of Treatment Not on file documented as of this encounter Visit Diagnoses Not on filedocumented in this encounter Care Teams Top Former Relationship Specialty Start Date End Date Mary Tejeda, [address] [address] PCP - General Internal Medicine 01/18/23 documented as of this encounter
--- OUTSIDE RECORDS SUMMARY | 2024-07-18 08:32 | XMS_ITS | Encounter Summary ---
Author Organization [facility] Address [address] [place] [address] Care Team Providers Care Reheater Helper Name Role Phone Andrew Hansen MD Primary Care Provider [phone] Community, Pcp Primary Care Provider Lulu christianson [facility], Pcp Primary Care Provider Mary Becerril DO Primary Care Provider [phone] Encounter Details Date Type Department Care Team Description 12/18/2017 [facility] Medical Records [address] [place] [id number] [place] [address] Social History Tobacco Use Types Packs/Day Years [...] on filedocumented in this encounter Care Teams Reheater Helper Relationship Specialty Start Date End Date Andrew Hansen MD [address] [place] [address] PCP - General Internal Medicine 07/13/17 03/07/19 [facility], Pcp [address] [place] [address] PCP - General Internal Medicine 03/08/19 08/01/22 [facility], Pcp [address] [place] [address] PCP - General Internal Medicine 08/02/22 01/17/23 Mary Tejeda, DO [address] [place] [address] PCP - General Internal Medicine 01/18/23 documented as of this encounter
--- OUTSIDE RECORDS SUMMARY | 2024-07-18 08:32 | XMS_ITS | Encounter Summary ---
Author Organization [facility] Address [address] [place] [address] Care Team Providers Care Computing Tutor Name Role Phone Andrew Hansen MD Primary Care Provider [phone] Community, Pcp Primary Care Provider Lulu Gallo, Pcp Primary Care Provider Mary Becerril DO Primary Care Provider [phone] Encounter Details Date Type Department Care Team Description 09/11/2017 [facility] Medical Records [address] [place] [address] Jelani Salazar DO Social History Tobacco Use [...] on filedocumented in this encounter Care Teams Computing Tutor Relationship Specialty Start Date End Date Andrew Hansen MD [address] [place] [address] PCP - General Internal Medicine 07/13/17 03/07/19 [facility], Pcp [address] [place] [address] PCP - General Internal Medicine 03/08/19 08/01/22 [facility], Pcp [address] [place] [address] PCP - General Internal Medicine 08/02/22 01/17/23 Mary Tejeda, DO [address] [place] [address] PCP - General Internal Medicine 01/18/23 documented as of this encounter
--- OUTSIDE RECORDS SUMMARY | 2024-07-18 08:32 | XMS_ITS | Encounter Summary ---
Author Organization [facility] Address [address] [place] [address] Care Team Providers Care Poultice Machine Operator Name Role Phone Andrew Hansen MD Primary Care Provider [phone] Community, Pcp [facility] Primary Care Provider UnavailMary Sauer DO Primary Care Provider [phone] Reason for Visit * Reason Onset Date Comments Appointment-Internal Referral 12/15/2017 Encounter Details Date Type Department Care Team Description 12/15/2017 Telephone Nephrology - [place] [address] [place] [address] Hitesh Mcdonald MD [address] [place] [address] Appointment-Internal Referral Social History Tobacco Use Types [...] on filedocumented in this encounter Care Teams Poultice Machine Operator Relationship Specialty Start Date End Date Andrew Hansen MD [address] [place] [address] PCP - General Internal Medicine 07/13/17 03/07/19 [facility], Pcp [address] [place] [address] PCP - General Internal Medicine 03/08/19 08/01/22 [facility], Pcp [address] [place] [address] PCP - General Internal Medicine 08/02/22 01/17/23 Mary Tejeda, [address] [place] [address] PCP - General Internal Medicine 01/18/23 documented as of this encounter
--- OUTSIDE RECORDS SUMMARY | 2024-07-18 08:32 | XMS_ITS | Encounter Summary ---
Author Organization [facility] Address [address] [place] [address] Care Team Providers Care Shine Worker Name Role Phone Andrew Hansen MD Primary Care Provider [phone] Community, Pcp Primary [facility] Provider [facility], [facility] Primary Care Provider Mary Becerril DO Primary Care Provider [phone] Encounter Details Date Type Department Care Team Description 12/06/2017 [facility] Medical Records [address] [place] [address] Med Aponte MD Social History Tobacco Use [...] on filedocumented in this encounter Care Teams Shine Worker Relationship Specialty Start Date End Date Andrew Hansen MD [address] [place] [address] PCP - General Internal Medicine 07/13/17 03/07/19 [facility], Pcp [address] [place] [address] PCP - General Internal Medicine 03/08/19 08/01/22 [facility], Pcp [address] [place] [address] PCP - General Internal Medicine 08/02/22 01/17/23 Mary Tejeda, DO [address] [place] [address] PCP - General Internal Medicine 01/18/23 documented as of this encounter
--- OUTSIDE RECORDS SUMMARY | 2024-07-18 08:32 | XMS_ITS | Encounter Summary ---
Author Organization [facility] Address [address] [place] [address] Care Team Providers Care Environmental Health And Safety Intern Name Role Phone Mary Tejeda DO Primary Care Provider [phone] Encounter Details Date Type Department Care Team Description 07/17/2023 Release of Information Medical Records [address] [place] [address] [address] [facility] Social History Tobacco Use Types Packs/Day Years [...] on filedocumented in this encounter Care Teams Environmental Health And Safety Intern Relationship Specialty Start Date End Date Mary Tejeda DO [address] [place] [address] PCP - General Internal Medicine 01/18/23 documented as of this encounter
[2024-07-18 09:03] VITALS: BMI 22.2
--- NOTE | 2024-07-18 09:03 | A.OFFVIS_ITS ---
Vital Signs 07/18/24 09:03 Height 5 ft 10 in Weight 155 lb BMI 22.2 Intake Visit Reasons: 3 mo Abd US follow up 07/09/2024 Intake Note: 3 mo follow up ARterial US 07/10/24 s/p Aorto Bi-Femoral Bypass 03/25/24. Pt states incisions are fully healed. Pt states over the past few weeks he has noticed something going on in the abdomen, feels like inside is healing. Would like his legs cecked out, has some spots he wants seen. States right foot has some numbness still, also has some feeling returning. Mold Filler And Drainer Required: No Accompanied by: Self / Same As Patient Allergies bee venom protein (honey bee) Allergy (Severe, Verified 07/18/24 09:08) Anaphylaxis codeine Adverse Reaction (Mild, Verified 07/18/24 09:08) Vomiting HPI HPI 3 mo Abd US follow up 07/09/2024: Details: Jabier is presenting today for a follow up to [address] [place] [address] on 07/10/24. He states he has been doing well. He has been slowly getting more feeling back into his feet but has not gotten feeling to the 2nd and 3rd toes of the left foot yet. He states he has been more active with less issues. He has continued to not smoke and he states he has had less shortness of breath or dyspnea with exertion. He states he is very happy with how everything has been going. His only concern this morning is for some spots on his bilateral lower legs that have been popping up and itching and then they bruise. [facility] Medical History Aortoiliac occlusive disease PAD (peripheral artery disease) Smoker COPD (chronic obstructive pulmonary disease) Pulmonary nodules History of femoral angiogram (02/07/24) Hx: bad fall (~2021) HLD (hyperlipidemia) Heart attack (~2017) Surgical History Hx of aorto-femoral bypass Hx of myringotomy Hx of tonsillectomy History of surgery on lower extremity (~2003) H/O tooth extraction Family History Mother History of quadruple bypass Father Aneurysm Social History Household Members: None Housing: House Are you a primary child care attendant school to a significant other at home: No Do you presently have visiting nurse or other home services: No 75 years or older and lives alone: No Alcohol intake: current Alcohol intake frequency: a few times a week Alcohol type: beer Comment: aware of trip hazard Patient Tobacco Use Status: Former Tobacco user Tobacco use type: Cigarette Cigarette Packs Per Day: 1 Cigarettes Per Day: 1 Years Smoked: 40 e-Cigarette/Vaping Use: Never Used Second Hand Smoke Exposure: No Substance Use Type: Marijuana service: No Review of Systems Const Reports as per HPI and Denies weakness ENT Reports Normal hearing present Card Reports as per HPI, Denies chest pain, Denies chest pain at rest, Denies chest pain with activity, Denies dyspnea and Denies dyspnea on exertion Resp Reports as per HPI, Denies cough, Denies dyspnea and Denies dyspnea on exertion GI Reports as per HPI, Denies abdominal pain, Denies nausea and Denies vomiting Musc Denies numbness Skin/Breast Reports as per HPI, Denies erythema and Denies wounds Neuro Reports Normal hearing present, Denies numbness, Denies Sensory deficit (Neuro) and Denies weakness Psych Reports no additional complaints Endo Reports no additional complaints Physical Exam Vital Signs: BMI result Body Mass Index 22.2 Const General: healthy appearing and no acute distress Orientation/consciousness: patient oriented x3 HEENT Head: Yes normal to inspection Ears: hearing grossly normal bilaterally Mouth: Normal oral and palatal mucosa present Resp Effort & Inspection: normal respiratory effort and able to speak in complete sentences Auscultation: clear to auscultation bilaterally Cardio Jugular venous distension: no JVD Rate: regular rate Rhythm: regular rhythm Heart sounds: S1 normal heart sound present and S2 normal heart sound present Bruits: no abdominal aortic bruits, no carotid bruits, no femoral bruits and no renal bruits Peripheral pulses: Peripheral pulses 2+ throughout GI Inspection: Yes normal to inspection Palpation (GI): No Abdominal aortic bruit present Skin General skin exam: no rashes or lesions noted Wounds: no wounds Hair: normal Neuro General: patient oriented x3 Cranial nerves: Yes CN's II-XII intact bilaterally and Yes Normal hearing present Cognition (Neuro): normal cognition Gait exam (Neuro): Normal gait present Motor exam (neuro): 5/5 motor strength present throughout Sensory Exam: No Sensory deficit (Neuro) Extrem Other: Bilateral lower extremities: small circular, mostly in the upper thighs, of bruise-like spot. 2 small pimple like spots with scabs noted. General: Yes normal to inspection, Yes full ROM, Yes capillary refill normal and Yes normal gait Assessment & Plan Assessment & Plan (1) Aortoiliac occlusive disease: Comment: 03/25/2024 - open aortobifem bypass Code(s): I74.09 - Other arterial embolism and thrombosis of abdominal aorta Category: Medical Plan: Jabier is doing well. He is s/p left common femoral endart and aortobifem bypass on 03/25. He has since quit smoking and has become more active. He is here today for review of the abd US, performed on 07/10/24. The US noted a widely patent aortobifem bypass graft. The incision sites are completely healed. We discussed the importance of continuing with smoking cessation, increased physical activity as tolerated, and a healthy, well balanced diet with protein and vegetables. We discussed that it could take awhile for the complete feeling to come back into his foot, or it may not come back at all. About the spots, we discussed that it is likely not due to a vascular issue and he should reach out to his PCP for a possible Derm referral. We discussed the importance of not picking or itching them when they pop out. We will have him return in 6m after a follow up US. Thank you for allowing us to participate in the patient's care. If there are any questions or concerns, please do not hesitate to reach out to us. Orders: Orders US abdominal aortic aneurysm 6 Months I74.09 - Other arterial embolism and thrombosis of abdominal aorta Coding Level of Care Code Est Pt Level 3 (61574) Diagnoses Aortoiliac occlusive disease I74.09
== END 2024-07-18 09:27 | disposition home or self-care (01) ==
LOC: HO.HVS 08:22
PROVIDERS: PCP Family Medicine; Visit Provider Physician Assistant Surgical
DX: I74.09 Other arterial embolism and thrombosis of abdominal aorta (principal)
CPT/HCPCS: 99213

== ENCOUNTER 2024-09-24 08:40 | Outpatient (AMB) | payer OTHER, SELFPAY ==
[2024-09-24 08:44] VITALS: BP 118/64; PULSE 75; O2SAT 96; BMI 22.5
--- NOTE | 2024-09-24 08:44 | MHC.OFFVIS ---
Vital Signs 09/24/24 08:44 Height 5 ft 10 in Weight 157 lb 2 oz BMI 22.5 BP 118/64 Blood Pressure Location Rt brachial Position Sitting Pulse 75 Pulse Source Pulse Oximeter Pulse Oximetry (%) 96 Oxygen Delivery Method Room Air Intake Visit Reasons: COPD Allergies bee venom protein (honey bee) Allergy (Severe, Verified 09/24/24 08:47) Anaphylaxis codeine Adverse Reaction (Mild, Verified 09/24/24 08:47) Vomiting HPI HPI COPD: Details: Jabier is a pleasant 58 year old male, former 80+ pack year smoker, recently quit 6 months ago with underlying mild COPD, PAD s/p open aortobifemoral bypass surgery and [place] 2018. He reports moderate control of respiratory symptoms using Spiriva and Breo, however uses albuterol MDI up to three times per day. He has had overall improvements since initiating Breo but continues with intermittent cough. He denies any visits to urgent care or hospitalizations related to respiratory distress since the last visit. [facility] Medical History Aortoiliac occlusive disease PAD (peripheral artery disease) Smoker COPD (chronic obstructive pulmonary disease) Pulmonary nodules History of femoral angiogram (02/07/24) Hx: bad fall (~2021) HLD (hyperlipidemia) Heart attack (~2017) Surgical History Hx of aorto-femoral bypass Hx of myringotomy Hx of tonsillectomy History of surgery on lower extremity (~2003) H/O tooth extraction Family History Mother History of quadruple bypass Father Aneurysm Social History Household Members: None Housing: House Are you a primary associate director career services to a significant other at home: No Do you presently have visiting nurse or other home services: No 75 years or older and lives alone: No Alcohol intake: current Alcohol intake frequency: a few times a week Alcohol type: beer Comment: aware of trip hazard Patient Tobacco Use Status: Former Tobacco user Tobacco use type: Cigarette Cigarette Packs Per Day: 1 Cigarettes Per Day: 1 Years Smoked: 40 e-Cigarette/Vaping Use: Never Used Second Hand Smoke Exposure: No Substance Use Type: Marijuana service: No Review of Systems Const Denies chills, Denies excessive sweating, Denies fever(s), Denies headache(s) and Denies night sweats Eyes Denies dry eyes, Denies irritation and Denies itchy eyes ENT Reports Normal hearing present, Denies headache(s), Denies nasal congestion, Denies nasal discharge, Denies post nasal drip and Denies sore throat Card Denies chest pain, Denies chest pain at rest, Denies chest pain with activity, Denies claudication, Denies leg edema, Denies dyspnea, Denies dyspnea on exertion, Denies orthopnea and Denies paroxysmal nocturnal dyspnea Resp Denies chest congestion, Denies excessive phlegm production, Denies pain on inspiration, Denies pain with cough, Denies dyspnea, Denies dyspnea on exertion, Denies stridor and Denies wheezing Musc Denies myalgias Neuro Reports Normal hearing present and Denies headache(s) Endo Denies excessive sweating Mauro/Lymph Denies lymphadenopathy Aller/Immun Denies itchy eyes, Denies seasonal rhinorrhea and Denies wheezing Physical Exam Vital Signs: Last Vital Signs Pulse 75 09/24/24 08:44 BP 118/64 09/24/24 08:44 Pulse Ox 96 09/24/24 08:44 Oxygen Delivery Method Room Air 09/24/24 08:44 BMI result Body Mass Index 22.5 Const General: cooperative, healthy appearing, comfortable, no acute distress, well developed and alert Nutritional Appearance: thin Orientation/consciousness: patient oriented x3 Limitations: no limitations HEENT Head: Yes normal to inspection, Yes normocephalic and Yes atraumatic Ears: hearing grossly normal bilaterally and external ears normal Eyes General: appearance normal, both eyes and all related structures Eyelids: Yes eyelids normal Sclerae: sclerae normal EOM: EOMs intact bilaterally Neck Neck: Yes normal visual inspection and Yes no lymphadenopathy Lymphatic: no lymphadenopathy noted Chest Chest palpation & inspection: normal inspection of the chest Resp Effort & Inspection: normal respiratory effort, able to speak in complete sentences, no audible wheezes, no cough, no stridor, not tachypneic, no tripod positioning and no use of accessory muscles Auscultation: diminished lung sounds Cardio Jugular venous distension: no JVD Rate: regular rate Rhythm: regular rhythm Skin Other: warm, dry General skin exam: no rashes or lesions noted Neuro General: patient oriented x3 Cranial nerves: Yes Normal hearing present Cognition (Neuro): normal cognition Gait exam (Neuro): Normal gait present Extrem General: Yes normal to inspection, Yes capillary refill normal, Yes no clubbing, cyanosis or edema and Yes no pedal edema Psych Appearance: grossly normal and well kempt Speech and movement: Normal speech and movement present and Clear speech present Affect: normal affect Attitude: cooperative Thought process: Normal thought process present Thought content: Normal thought content present Insight: Good insight present (Psych) Judgement: Good judgement present (Psych) Assessment & Plan Assessment & Plan (1) COPD (chronic obstructive pulmonary disease): Code(s): J44.9 - Chronic obstructive pulmonary disease, unspecified Category: Medical (2) Chronic cough: Code(s): R05.3 - Chronic cough Category: Medical Plan Jabier reports suboptimal control with current regimen, will increase Breo and advised to continue Spiriva as well as albuterol MDI PRN. Encouraged continued smoking cessation which patient is motivated to do. Prior chest CT which revealed resolution of diffuse interstitial nodular consolidation, revealing mild emphysematous changes with scattered granulomas, order placed previously to repeat in one year to assess for stability given significant smoking history. All questions were answered and patient is in agreement of plan. Will follow up in 3 months or sooner if needed. Medications: New albuterol sulfate 90 mcg/actuation 2 puffs inhalation Q4-6H PRN 1 ea 6RF Shortness Of Breath Or Wheezing fluticasone furoate-vilanterol 200-25 mcg/dose (Breo Ellipta) 1 inh inhalation DAILY 60 ea 6RF Discontinued fluticasone furoate-vilanterol 100-25 mcg/dose (Breo Ellipta) Discontinued Reason: Patient Completed Course 1 inh inhalation DAILY 60 ea 3RF Coding Level of Care Code Est Pt Level 4 (47381) Diagnoses COPD (chronic obstructive pulmonary disease) J44.9 Chronic cough R05.3
--- OUTSIDE RECORDS SUMMARY | 2024-09-24 08:55 | XMS_ITS | Encounter Summary ---
Author Organization [employer] Address [address] [facility] [address] [place] [address] Care Team Providers Care Accounting Teacher Name Role Phone Jaja Garcia MD Primary Care Provider [phone] Reason for Visit * Reason Onset Date Comments Created In Error 02/08/2024 Encounter Details Date Type Department Care Team ([facility] st Contact Info) Description 02/08/2024 Telephone [facility] [address] [place] [address] Jaja Garcia MD [address] [place] [address] Created In Error Social History Tobacco Use Types Packs/Day Years Used Date Smoking Tobacco: Every Day Cigarettes 2 41.5 Started: 03/20/1983 Alcohol Use Standard Drinks/Week Comments [...] documented as of this encounter Care Teams Accounting Teacher Relationship Specialty Start Date End Date Jaja Garcia MD [address] [place] [id number] PCP - General Family Medicine 01/05/24 Donell Ryan M.D. Consulting Physician Orthopaedic Surgery 01/05/24 [facility] 04/02/24 documented as of this encounter
--- OUTSIDE RECORDS SUMMARY | 2024-09-24 08:55 | XMS_ITS | Clinical Summary ---
Author Organization [address] [place] [address] Address [address] [place] [address] Phone Care Team Providers Care Concession Worker Name Role Phone Physician, No Pcp Primary [...] Comments OTHER SURGICAL HISTORY 2004 Right PROCEDURE: NE UNLISTED PROCEDURE LEG/ANKLE; COMMENT: tib/fib compound fracture with metal marimar, pins - [facility] trauma (Dr. Verdin) TONSILLECTOMY PROCEDURE: HISTORICAL [...] Years (1 of 2 - PCV) 11/04/1983 Colorectal Cancer Screening: Colonoscopy 10/17/2023 HIV Screening 10/17/2023 Lung Cancer Screening (Low Dose CT) 10/17/2023 Social Influencers of Health Screening 10/17/2023 COVID-19 Vaccine (4 - 2023-2 5 season) 2023 03/01/2021, 07/31/2020, 07/10/2020 Influenza Vaccine (#1) 2024 Depression Screening 01/04/2025 01/05/2024 Cholesterol Screening [...] Associated Diagnosis Comments LIPID PANEL Routine 06/20/2023 HEPATITIS C SCREENING Routine 10/29/2017 from Last [...] Most Recently Relevant to Health Maintenance Insurance [facility] Care Teams Concession Worker Relationship Specialty Start Date End Date Physician, No Pcp PCP - General 02/14/24
== END 2024-09-24 09:06 | disposition home or self-care (01) ==
LOC: HO.HPSW 08:40
PROVIDERS: PCP Family Medicine; Visit Provider Nurse Practitioner Family
DX: J44.9 Chronic obstructive pulmonary disease, unspecified (principal); R05.3 Chronic cough
CPT/HCPCS: 99214

== ENCOUNTER 2024-12-24 08:55 | Outpatient (AMB) | payer OTHER, SELFPAY ==
[2024-12-24 08:58] VITALS: BP 124/68; PULSE 74; O2SAT 98; BMI 22.7
--- NOTE | 2024-12-24 08:58 | MHC.OFFVIS ---
Vital Signs 12/24/24 08:58 Height 5 ft 10 in Weight 158 lb 8 oz BMI 22.7 BP 124/68 Blood Pressure Location Rt brachial Position Sitting Pulse 74 Pulse Source Pulse Oximeter Pulse Oximetry (%) 98 Oxygen Delivery Method Room Air Intake Visit Reasons: COPD Allergies bee venom protein (honey bee) Allergy (Severe, Verified 12/24/24 09:01) Anaphylaxis codeine Adverse Reaction (Mild, Verified 12/24/24 09:01) Vomiting HPI HPI COPD: Details: Jabier is a pleasant 59 year old male, former 80+ pack year smoker, recently quit 6 months ago with underlying mild COPD, PAD s/p open aortobifemoral bypass surgery and [place] 2018. At the last visit patient reports suboptimal control of respiratory symptoms using Spiriva and Breo 100 mcg, requiring albuterol MDI up to three times per day. Breo was increased to 200 mcg and patient reports improvements in symptoms, now using albuterol 3-4 times per week. He denies any visits to urgent care or hospitalizations related to respiratory distress since the last visit. COUNT INCLUDES [facility] Medical History Aortoiliac occlusive disease PAD (peripheral artery disease) Smoker COPD (chronic obstructive pulmonary disease) Pulmonary nodules History of femoral angiogram (02/07/24) Hx: bad fall (~2021) HLD (hyperlipidemia) Heart attack (~2017) Surgical History Hx of aorto-femoral bypass Hx of myringotomy Hx of tonsillectomy History of surgery on lower extremity (~2003) H/O tooth extraction Family History Mother History of quadruple bypass Father Aneurysm Social History Household Members: None Housing: House Are you a primary gericare aide teacher to a significant other at home: No Do you presently have visiting nurse or other home services: No 75 years or older and lives alone: No Alcohol intake: current Alcohol intake frequency: a few times a week Alcohol type: beer Comment: aware of trip hazard Patient Tobacco Use Status: Former Tobacco user Tobacco use type: Cigarette Cigarette Packs Per Day: 1 Cigarettes Per Day: 1 Years Smoked: 40 e-Cigarette/Vaping Use: Never Used Second Hand Smoke Exposure: No Substance Use Type: Marijuana service: No Review of Systems Const Denies chills, Denies excessive sweating, Denies fever(s), Denies headache(s) and Denies night sweats Eyes Denies dry eyes, Denies irritation and Denies itchy eyes ENT Reports Normal hearing present, Denies headache(s), Denies nasal congestion, Denies nasal discharge, Denies post nasal drip and Denies sore throat Card Denies chest pain, Denies chest pain at rest, Denies chest pain with activity, Denies claudication, Denies leg edema, Denies dyspnea, Denies dyspnea on exertion, Denies orthopnea and Denies paroxysmal nocturnal dyspnea Resp Denies chest congestion, Denies excessive phlegm production, Denies pain on inspiration, Denies pain with cough, Denies dyspnea, Denies dyspnea on exertion, Denies stridor and Denies wheezing Musc Denies myalgias Neuro Reports Normal hearing present and Denies headache(s) Endo Denies excessive sweating Mauro/Lymph Denies lymphadenopathy Aller/Immun Denies itchy eyes, Denies seasonal rhinorrhea and Denies wheezing Physical Exam Vital Signs: Last Vital Signs Pulse 74 12/24/24 08:58 BP 124/68 12/24/24 08:58 Pulse Ox 98 12/24/24 08:58 Oxygen Delivery Method Room Air 12/24/24 08:58 BMI result Body Mass Index 22.7 Const General: cooperative, healthy appearing, comfortable, no acute distress, well developed and alert Orientation/consciousness: patient oriented x3 Limitations: no limitations HEENT Head: Yes normal to inspection, Yes normocephalic and Yes atraumatic Ears: hearing grossly normal bilaterally and external ears normal Eyes General: appearance normal, both eyes and all related structures Eyelids: Yes eyelids normal Sclerae: sclerae normal EOM: EOMs intact bilaterally Neck Neck: Yes normal visual inspection and Yes no lymphadenopathy Lymphatic: no lymphadenopathy noted Chest Chest palpation & inspection: normal inspection of the chest Resp Effort & Inspection: normal respiratory effort, able to speak in complete sentences, no audible wheezes, no cough, no stridor, not tachypneic, no tripod positioning and no use of accessory muscles Auscultation: clear to auscultation bilaterally Cardio Jugular venous distension: no JVD Rate: regular rate Rhythm: regular rhythm Skin Other: warm, dry General skin exam: no rashes or lesions noted Neuro General: patient oriented x3 Cranial nerves: Yes Normal hearing present Cognition (Neuro): normal cognition Gait exam (Neuro): Normal gait present Extrem General: Yes normal to inspection, Yes capillary refill normal, Yes no clubbing, cyanosis or edema and Yes no pedal edema Psych Appearance: grossly normal and well kempt Speech and movement: Normal speech and movement present and Clear speech present Affect: normal affect Attitude: cooperative Thought process: Normal thought process present Thought content: Normal thought content present Insight: Good insight present (Psych) Judgement: Good judgement present (Psych) Assessment & Plan Assessment & Plan (1) COPD (chronic obstructive pulmonary disease): Code(s): J44.9 - Chronic obstructive pulmonary disease, unspecified Category: Medical (2) Chronic cough: Code(s): R05.3 - Chronic cough Category: Medical (3) Personal history of tobacco use: Code(s): Z87.891 - Personal history of nicotine dependence Category: Social Hx Plan Jabier reports good control of respiratory symptoms with current regimen, advised to continue Breo, Spiriva and albuterol MDI PRN. Prior chest CT 06/2924 revealed resolution of diffuse interstitial nodular consolidation, revealing mild emphysematous changes with scattered granulomas, order placed to lung screening program for continued surveillance. All questions were answered and patient is in agreement of plan. Will follow up in 6 months or sooner if needed. Orders: Referrals Lung Cancer Screening Referral Z87.891 - Personal history of nicotine dependence Coding Level of Care Code Est Pt Level 4 (11641) Diagnoses COPD (chronic obstructive pulmonary disease) J44.9 Chronic cough R05.3 Personal history of tobacco use Z87.891
--- OUTSIDE RECORDS SUMMARY | 2024-12-24 09:45 | XMS_ITS | Clinical Summary ---
Author Organization [address] [place] [address] Address [address] [place] [address] Phone Care Team Providers Care Misdraw Hand Name Role Phone Physician, No Pcp Primary [...] compound fracture with metal marimar, pins - [facility] trauma (Dr. Verdin) TONSILLECTOMY PROCEDURE: HISTORICAL TONSILLECTOMY [...] Health Maintenance Due Date Last Done Comments Colorectal Cancer Screening: Colonoscopy 1964 DTaP,Tdap,and Td Vaccines (1 - Tdap) 11/04/1983 Pneumococcal Vaccine: 50+ Years (1 of 2 - PCV) 11/04/1983 HIV Screening 10/17/2023 Lung Cancer Screening (Low Dose CT) 10/17/2023 Social Influencers of Health Screening 10/17/2023 Depression Screening 03/20/2024 RSV Immunization Adult Patients (1 - Risk 60-74 years 1-dose series) 2024 COVID-19 Vaccine (4 - 2024-2 6 season) 2024 03/01/2021, 07/31/2020, 07/10/2020 Influenza Vaccine (#1) 2024 Cholesterol Screening (Lipid Panel) 01/04/2029 01/05/2024, 06/20/2023 Hepatitis C Screening Completed 10/29/2017 Zoster Vaccines Completed 05/05/2021, 03/01/2021 HIB Vaccines Aged Out No longer eligi ble based on patient's age to complete this topic HPV Vaccines Aged Out No longer eligi ble based on patient's age to complete this topic Hepatitis A Vaccines Aged Out No long er eligible based on patient's age to complete this topic Hepatitis B Vaccines Aged Out No long er eligible [...] mg/dL Blood Venous blood specimen / Unknown us Historical Provider MD LAB BLOOD ORDERABLES Aide l Result * Hepatitis C Screening (10/29/2017) Hepatitis C Screening negative us Historical Provider HEALTH MAINTENANCE Final Result from Last 3 Months or Most Recently Relevant to Health Maintenance Insurance [facility] [place] [address] Care Teams Misdraw Hand Relationship Specialty Start Date End Date Physician, No Pcp PCP - General 02/14/24
--- OUTSIDE RECORDS SUMMARY | 2024-12-24 09:45 | XMS_ITS | Encounter Summary ---
Author Organization [employer] Address [address] [facility] [address] [place] [address] Care Team Providers Care Rfid Strategist Name Role Phone Jaja Garcia MD Primary Care Provider [phone] Reason for Visit * Reason Comments Med Refill Encounter Details Date Type Department Care Team ([facility] st Contact Info) Description 07/03/2024 Refill [facility] [address] [place], [place] [phone] Jaja Garcia MD [address] [place] [address] Social History Tobacco Use Types Packs/Day Years Used Date Smoking Tobacco: Every Day Cigarettes 2 41.8 Started: 03/20/1983 Alcohol Use Standard Drinks/Week Comments [...] documented as of this encounter Care Teams Rfid Strategist Relationship Specialty Start Date End Date Jaja Garcia MD [address] [place] [id number] PCP - General Family Medicine 01/05/24 Donell Ryan M.D. Consulting Physician Orthopaedic Surgery 01/05/24 [facility] 04/02/24 documented as of this encounter
--- OUTSIDE RECORDS SUMMARY | 2024-12-24 09:45 | XMS_ITS | Clinical Summary ---
Author Organization [employer] Address 75 [facility] 7t [place] [address] Care Team Providers Care Television Anchor Name Role Phone Jaja Garcia MD Primary Care Provider [phone] Allergies Active Allergy Reactions Criticality Noted Date Comments Bee Venom Hives 10/20/2005 Stung by 100+ bees at one time as a child - had severe edema. Never had any issues with bee stings since Codeine 08/23/2017 vomiting Medications acetaminophen (Tylenol) 500 MG tablet Take 100 mg by mouth. Active tiotropium (Spiriva HandiHaler) 18 MCG inhalation capsuleIndicat ions:Obstructi ve lung disease (CMS/HCC) ([facility]) Place 1 capsule (18 mcg) into inhaler and inhale in the morning. 30 capsule 11 4 02/09/20 25 Active meloxicam (Mobic) 15 MG tablet Take 1 tablet (15 mg) by mouth Once per day. 60 tablet 1 4 Active rosuvastatin (Crestor) 40 MG tablet TAKE 1 TABLET BY MOUTH ONCE DAILY 90 tablet 1 5 Active albuterol 108 (90 Base) MCG/ACT inhalerIndicat ions:Obstructi ve lung disease (CMS/HCC) ([facility]) INHALE 2 PUFFS BY MOUTH EVERY 4 HOURS NEEDED FOR WHEEZE 18 g 2 5 Active Aspirin Low Dose 81 MG chewable tablet CHEW 1 TABLET (81 MG) ONCE PER DAY. 90 tablet 3 5 Active aspirin 81 MG chewable tablet Chew 1 tablet (81 mg) Once per day. 90 tablet 3 4 12/10/19 25 Discontinued Active Problems Problem Noted Date [...] Encounters Date Type Department Care Team Description 12/08/2024 Refill [facility] CHC MED & PEDS [address] [place] [address] Jaja Garcia MD from Last 3 Months Immunizations Immunization Administration Dates Next Due Zoster, Recombinant 05/05/2021,03/01/2021 Social History Tobacco Use Types Packs/Day Years Used Date Smoking Tobacco: Every Day Cigarettes 2 41.8 Started: 03/20/1983 Tobacco Cessation:Ready to Q uit: [...] 76 02/09/2024 11:01 AM EST Temperature 36.8 C (98.2 F) 02/09/2024 11:01 AM EST Respiratory Rate 18 02/09/2024 11:01 AM EST [...] 1964 Diabetes: Hemoglobin A1C 1964 FIT 1964 HIV Screening 1964 Sigmoidoscopy 1964 Disability Screening 1964 Alcohol/Substance Use Screening 1976 Hepatitis C Screening 1982 DTaP/Tdap/Td Vaccines (1 - Tdap) 11/04/1983 Pneumococcal Vaccine: 50+ Years (1 of 2 - PCV) 11/04/1983 Lung Cancer Screening 2014 Abdominal Aortic Aneurysm (AAA) Screening 07/17/2024 07/12/2024 RSV Patients and Patients Aged 60 years or older (1 - Risk 60-74 years 1-dose series) 2024 COVID-19 Vaccine (4 - 2024-2 6 season) 2024 03/01/2021, 07/31/2020, 07/10/2020 Influenza Vaccine (#1) 2024 SDOH Screening 12/26/2024 12/27/2023 Depression Screening 01/04/2025 01/05/2024, 01/05/2024 Tobacco Screening 01/04/2025 01/05/2024 FOBT 02/27/2025 02/28/2024 Colorectal Cancer Screening 02/27/2027 FIT DNA/Cologuard 02/27/2027 02/28/2024 Lipid Panel 01/04/2029 01/05/2024 Zoster Vaccines Completed 05/05/2021, 03/01/2021 HIB Vaccines [...] Procedure Name Priority Date/Time Associated Diagnosis Comments LAB COLOGUARD COLON CANCER SCREEN Routine 02/28/2024 2:45 PM EST Screening for colon cancer LIPID PANEL, STANDARD Routine 01/05/2024 2:50 PM EDT PVD (peripheral vascular disease) (CMS/HCC) from Last 3 Months or Most Recently Relevant to Health Maintenance Results * (ABNORMAL) Cologuard?? colon cancer screening (02/28/2024 2:45 PM EST) Cologuard Result Positive( A) Negative 03/10/2024 9:39 AM EST [facility] (CLIA #:[id number]) Comment: POSITIVE TEST RESULT. A positive Cologuard result should be followed with a colonoscopy or visual examination of the colon. The normal value (reference range) for this assay is negative. TEST DESCRIPTION: Composite algorithmic analysis of stool DNA-biomarkers with hemoglobin immunoassay. Quantitative values of individual biomarkers are not [...] Byrd et al, N Engl J Med 2014;370(14):1982-6424.) Cologuard may produce a false negative or false positive result (no colorectal cancer or precancerous polyp present at colonoscopy follow up). A negative Cologuard test result does not guarantee the absence of CRC or advanced adenoma (pre-cancer). The current Cologuard screening interval is every 3 years. ([place] Cancer Society and U.S. Multi-Society Task Force). Cologuard performance data in a 10,000 patient pivotal study using colonoscopy as the reference method can be accessed at the following location: www.[employer].PitchBook Data/results. Additional description of the Cologuard test process, warnings and precautions can be found at www.GuideSparkogGreenItaly1rd.com. Stool specimen (specimen) 02/28/2024 2:45 PM EST 02/29/2024 10:46 AM EST us Jaja Garcia MD LAB MOLECULAR DIAGNOSTICS ORD ERABLES Final Result [facility] (CLIA #:[id number]) [place] [address], * (ABNORMAL) Lipid Panel, Standard (01/05/2024 2:50 PM EDT) Triglycerides 85 <150 mg/dL [facility] Comment:Desirable Triglyceri de: less than 150 mg/dLBorderline High Triglyceride 150-199 mg/dLHigh Triglyceride: 200-499 mg/dLVery High Triglyceride: greater than or equal to 5OO mg/dL Cholesterol 139 <200 mg/dL [facility] Comment:Desirable Cholestero l: less than 200 mg/dLBorderline High Cholesterol: 200-239 mg/dLHigh Cholesterol: greater than 239 mg/dL LDL Cholesterol Calculated 83 <100 mg/dL [facility] Comment:Desirable LDL: less than 100 mg/dLNear Optimal/Above Optimal LDL: 110- 129 mg/dLBorderline High LDL: 130-159 mg/dLHigh LDL: 160-189 mg/dLVery High LDL: greater than or equal to 190 mg/dL HDL Cholesterol 39(L) >40 mg/dL [facility] Comment:Desirable HDL: great er than 40 mg/dL Note: This HDL assay may give artificially low results in patients with liver disease. Blood Venous blood specimen / Unknown 01/05/2024 2:50 PM EDT 01/05/2024 5:19 PM EDT us Jaja Garcia MD LAB BLOOD ORDERABLES Final Re sult [facility] [address] [place] [phone] from Last 3 Months or Most Recently Relevant to Health Maintenance Insurance [employer]ARE Care Teams Television Anchor Relationship Specialty Start Date End Date Jaja Garcia MD [address] [place] [id number] PCP - General Family Medicine 01/05/24 Donell Ryan M.D. Consulting Physician Orthopaedic Surgery 01/05/24 [facility] 04/02/24
--- OUTSIDE RECORDS SUMMARY | 2024-12-24 09:45 | XMS_ITS | Encounter Summary ---
Author Organization [employer] Address 75 [facility] 7t [place] [address] Care Team Providers Care Technology Advisor Name Role Phone Jaja Garcia MD Primary Care Provider [phone] Reason for Visit * Reason Onset Date Comments Created In Error 02/08/2024 Encounter Details Date Type Department Care Team ([facility] st Contact Info) Description 02/08/2024 Telephone [facility] MED[facility]INE [address] [place] [address] Jaja Garcia MD [address] [place] [address] Created In Error Social History Tobacco Use [...] documented as of this encounter Care Teams Technology Advisor Relationship Specialty Start Date End Date Jaja Garcia MD [address] [place] [address] PCP - General Family Medicine 01/05/24 Donell Ryan M.D. Consulting Physician Orthopaedic Surgery 01/05/24 [facility] 04/02/24 documented as of this encounter
== END 2024-12-24 09:19 | disposition home or self-care (01) ==
LOC: HO.HPSW 08:56
PROVIDERS: PCP Family Medicine; Visit Provider Nurse Practitioner Family
DX: J44.9 Chronic obstructive pulmonary disease, unspecified (principal); R05.3 Chronic cough; Z87.891 Personal history of nicotine dependence
CPT/HCPCS: 99214

== ENCOUNTER 2025-01-21 07:46 | Outpatient (REF) | payer OTHER, SELFPAY ==
--- NOTE | ~2025-01-21 | US_ITS ---
CLINICAL HISTORY: 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 Please evaluate graft please. Ultrasound abdominal aorta Comparison: 07/10/2024 Findings: Abdominal aorta normal caliber, maximum 2.4 cm. Information states patent bypass graft with plaque. This appears to be an aortic bypass graft, please correlate. Bilateral iliac limbs are patent with normal flow. Anatomic orientation is less than ideal. Heterogeneous soft tissue material at site of palpable lump. This is labeled as suprapubic without laterality. Question hematoma, please correlate. Impression: Patent aortic bypass graft as above Possible hematoma at site of palpable lump This document has been electronically signed by: Elia Moore MD on 01/21/2025 20:33:34
--- OUTSIDE RECORDS SUMMARY | 2025-01-21 07:49 | XMS_ITS | Encounter Summary ---
Author Organization [employer] Address 75 [facility] [address]t [place] [address] Care Team Providers Care Complaint Investigator Name Role Phone Jaja Garcia MD Primary Care Provider [phone] Reason for Visit * Reason Comments Med Refill Encounter Details Date Type Department Care Team ([facility] st Contact Info) Description 07/03/2024 Refill [facility] CHC MED & PEDS [address] [place], [place] [phone] Jaja Garcia MD [address] [place] [address] Social History Tobacco Use Types Packs/Day Years [...] documented as of this encounter Care Teams Complaint Investigator Relationship Specialty Start Date End Date Jaja Garcia MD [address] [place] [id number] PCP - General Family Medicine 01/05/24 Donell Ryan M.D. Consulting Physician Orthopaedic Surgery 01/05/24 [facility] 04/02/24 documented as of this encounter
--- OUTSIDE RECORDS SUMMARY | 2025-01-21 07:49 | XMS_ITS | Encounter Summary ---
Author Organization [employer] Address 75 [facility] [address]t [place] [address] Care Team Providers Care Steam Trap Man Name Role Phone Jaja Garcia MD Primary Care Provider [phone] Reason for Visit * Reason Onset Date Comments Created In Error 02/08/2024 Encounter Details Date Type Department Care Team ([facility] st Contact Info) Description 02/08/2024 Telephone [facility] MEDICINE [address] [place] [address] Jaja Garcia MD [address] [place] [address] Created In Error Social History Tobacco Use [...] documented as of this encounter Care Teams Steam Trap Man Relationship Specialty Start Date End Date Jaja Garcia MD [address] [place] [phone] PCP - General Family Medicine 01/05/24 Donell Ryan M.D. Consulting Physician Orthopaedic Surgery 01/05/24 [facility] 04/02/24 documented as of this encounter
--- OUTSIDE RECORDS SUMMARY | 2025-01-21 07:49 | XMS_ITS | Encounter Summary ---
Author Organization [employer] Address [address] [facility] [address]t [place] [address] Care Team Providers Care [place] Coordinator Name Role Phone Jaja Garcia MD Primary Care Provider [phone] Reason for Visit * Reason Comments Med Refill Encounter Details Date Type Department Care Team ([facility] st Contact Info) Description 01/16/2025 Refill [facility] CHC MED & PEDS [address] [place], [place] [phone] Jaja Garcia MD [address] [place] [address] Social History Tobacco Use Types Packs/Day Years [...] documented as of this encounter Care Teams [place] Coordinator Relationship Specialty Start Date End Date Jaja Garcia MD [address] [place] [address] PCP - General Family Medicine 01/05/24 Donell Ryan M.D. Consulting Physician Orthopaedic Surgery 01/05/24 [facility] 04/02/24 documented as of this encounter
--- OUTSIDE RECORDS SUMMARY | 2025-01-21 07:49 | XMS_ITS | Clinical Summary ---
Author Organization [address] [place] [address] Address [address] [place] [address] Phone Care Team Providers Care Grades 1 Thru 6 Visiting Teacher Name Role Phone Physician, No Pcp Primary [...] Comments OTHER SURGICAL HISTORY 2004 Right PROCEDURE: [place] UNLISTED PROCEDURE LEG/ANKLE; COMMENT: tib/fib compound fracture with metal [place], [facility]Dr. Verdin) TONSILLECTOMY PROCEDURE: HISTORICAL [...] years 1-dose series) 2014 HIV Screening 10/17/2023 Social Influencers of Health Screening 10/17/2023 [...] blood specimen / Unknown us Historical Provider LAB BLOOD ORDERABLES Aide l Result * Hepatitis C Screening (10/29/2017) Hepatitis C Screening negative us Historical Provider HEALTH MAINTENANCE Final Result from Last 3 Months or Most Recently Relevant to Health Maintenance Insurance [facility] Care Teams Grades 1 Thru 6 Visiting Teacher Relationship Specialty Start Date End Date Physician, No Pcp PCP - General 02/14/24
--- OUTSIDE RECORDS SUMMARY | 2025-01-21 07:49 | XMS_ITS | Clinical Summary ---
Author Organization [employer] Address 75 [facility] 7t [place] [address] Care Team Providers Care Transportation Technician Name Role Phone Jaja Garcia MD Primary Care Provider [phone] Allergies Active Allergy Reactions Criticality Noted Date Comments Bee Venom Hives 10/20/2005 Stung by 100+ bees at one time as a child - had severe edema. Never had any issues with bee stings since Codeine 08/23/2017 vomiting Medications acetaminophen (Tylenol) 500 MG tablet Take 100 mg by mouth. Active tiotropium (Spiriva HandiHaler) 18 MCG inhalation capsuleIndicat ions:Obstructi ve lung disease (CMS/HCC) ([facility]) Place 1 capsule (18 mcg) into inhaler and inhale in the morning. 30 capsule 11 4 02/09/20 25 Active meloxicam (Mobic) 15 MG tablet Take 1 tablet (15 mg) by mouth Once per day. 60 tablet 1 4 Active albuterol 108 (90 Base) MCG/ACT inhalerIndicat ions:Obstructi ve lung disease (CMS/HCC) ([facility]) INHALE 2 PUFFS BY MOUTH EVERY 4 HOURS NEEDED FOR WHEEZE 18 g 2 5 Active Aspirin Low Dose 81 MG chewable tablet CHEW 1 TABLET (81 MG) ONCE PER DAY. 90 tablet 3 5 Active rosuvastatin (Crestor) 40 MG tablet TAKE 1 TABLET BY MOUTH ONCE DAILY 90 tablet 1 5 Active rosuvastatin (Crestor) 40 MG tablet TAKE 1 TABLET BY MOUTH ONCE DAILY 90 tablet 1 5 01/17/20 25 Discontinued Active Problems Problem Noted Date Diagnosed Date Arthralgia of hip 01/05/2024 Injury of kidney 01/05/2024 Prediabetes 01/05/2024 Upper gastrointestinal hemorrhage 01/05/2024 Shortness of breath on exertion 01/05/2024 Assessment & Plan (01/09/2024 9:50 AM EDT): Reports prior hx of [place], no records. Chronic SALDIVAR/SOB, hx of heavy [...] Encounters Date Type Department Care Team Description 01/16/2025 Refill [facility] [address] [place] [address] Jaja Garcia MD 12/08/2024 Refill [facility] [address] [place] [address] Jaja Garcia MD from Last 3 Months [...] Positive( A) Negative 03/10/2024 9:39 AM EST [facility] (CLIA #:[id number]) Comment: POSITIVE TEST RESULT. A positive Cologuard [...] Byrd et al, N Engl J Med 2014;370(14):2878-0015.) Cologuard may produce a false negative or false positive result (no colorectal cancer or precancerous polyp present at colonoscopy follow up). A negative Cologuard test result does not guarantee the absence of CRC or advanced adenoma (pre-cancer). The current Cologuard screening interval is every 3 years. ([place] Cancer Society and U.S. Multi-Society Task Force). Cologuard performance data in a 10,000 patient pivotal study using colonoscopy as the reference method can be accessed at the following location: www.[employer].Signix/results. Additional description of the Cologuard test process, warnings and precautions can be found at www.Soliord.com. Stool specimen (specimen) 02/28/2024 2:45 PM EST 02/29/2024 10:46 AM EST Jaja Garcia MD LAB MOLECULAR DIAGNOSTICS ORD ERABLES Final Result [facility] (CLIA #:[id number]) [place] [address], * (ABNORMAL) Lipid Panel, Standard (01/05/2024 2:50 PM EDT) Triglycerides 85 <150 mg/dL [facility] Comment:Desirable Triglyceri de: less than 150 mg/dLBorderline High Triglyceride 150-199 mg/dLHigh Triglyceride: 200-499 mg/dLVery High Triglyceride: greater than or equal to 5OO mg/dL Cholesterol 139 <200 mg/dL [facility] Comment:Desirable Cholestero l: less than 200 mg/dLBorderline High Cholesterol: 200-239 mg/dLHigh Cholesterol: greater than 239 mg/dL LDL Cholesterol Calculated 83 <100 mg/dL [facility] Comment:Desirable LDL: less than 100 mg/dLNear Optimal/Above Optimal LDL: 110- 129 mg/dLBorderline High LDL: 130-159 mg/dLHigh LDL: 160-189 mg/dLVery High LDL: greater than or equal to 190 mg/dL HDL Cholesterol 39(L) >40 mg/dL [facility] Comment:Desirable HDL: great er than 40 mg/dL Note: This HDL assay may give artificially low results in patients with liver disease. Blood Venous blood specimen / Unknown 01/05/2024 2:50 PM EDT 01/05/2024 5:19 PM EDT Jaja Garcia MD LAB BLOOD ORDERABLES Final Re sult [facility] [address] [place] [phone] from Last 3 Months or Most Recently Relevant to Health Maintenance Insurance [facility] MEDICARE Care Teams Transportation Technician Relationship Specialty Start Date End Date Jaja Garcia MD [address] [place] [phone] PCP - General Family Medicine 01/05/24 Donell Ryan M.D. Consulting Physician Orthopaedic Surgery 01/05/24 [facility] 04/02/24
== END 2025-01-21 07:47 | disposition home or self-care (01) ==
LOC: HO.US 07:46
PROVIDERS: PCP Family Medicine; Visit Provider Physician Assistant Surgical
DX: I74.09 Other arterial embolism and thrombosis of abdominal aorta (principal)
CPT/HCPCS: 76706

== ENCOUNTER → 2025-01-21 07:47 | Outpatient (BNV) | payer OTHER, SELFPAY | PROVIDERS: PCP Family Medicine; Visit Provider Radiology Diagnostic Radiology | DX: I74.09 Other arterial embolism and thrombosis of abdominal aorta (principal) | CPT/HCPCS: 76706 ==

== ENCOUNTER 2025-01-21 08:42 | Outpatient (AMB) | payer OTHER, SELFPAY ==
[2025-01-21 09:01] VITALS: BMI 22.7
--- NOTE | 2025-01-21 09:01 | A.OFFVIS_ITS ---
Vital Signs 01/21/25 09:01 Height 5 ft 10 in Weight 158 lb BMI 22.7 Intake Visit Reasons: incision check Intake Note: Follow up abdominal incision check s/p Aorto Bi-fem bypass 03/25/24. pt states he noticed a lump to the right of the incision about 1 week ago. Pt states overall he is walking much better. States he still isn't smoking. Food And Beverage Cashier Required: No Accompanied by: Self / Same As Patient Allergies bee venom protein (honey bee) Allergy (Severe, Verified 01/21/25 09:05) Anaphylaxis codeine Adverse Reaction (Mild, Verified 01/21/25 09:05) Vomiting HPI HPI incision check: Details: The patient is a 59-year-old male presenting with a follow-up after aortobifemoral bypass surgery. The surgery was performed on March 25, 2024, and the patient appears to be doing relatively well post-operatively. An ultrasound was performed earlier in the day, which was reported as normal. The patient reports a lump at the incision site, which is associated with some drainage. The lump is located where the drainage area was, and it started recently. The patient attempted to shave the area to better assess the lump, which revealed a possible suarez or ingrown hair. The patient is scheduled for a colonoscopy on the 18th of the month as part of preventative care, following a non-passing Cologuard test. The patient has never had a colonoscopy before and is concerned about the procedure. The patient has a history of lung spots, which are being monitored, and reports that he has stopped smoking. He now presents for aortic follow-up. [facility] Medical History Aortoiliac occlusive disease PAD (peripheral artery disease) Smoker COPD (chronic obstructive pulmonary disease) Pulmonary nodules History of femoral angiogram (02/07/24) Hx: bad fall (~2021) HLD (hyperlipidemia) Heart attack (~2017) Surgical History Hx of aorto-femoral bypass Hx of myringotomy Hx of tonsillectomy History of surgery on lower extremity (~2003) H/O tooth extraction Family History Mother History of quadruple bypass Father Aneurysm Social History Household Members: None Housing: House Are you a primary hearing care practitioner to a significant other at home: No Do you presently have visiting nurse or other home services: No 75 years or older and lives alone: No Alcohol intake: current Alcohol intake frequency: a few times a week Alcohol t ype: beer Comment: aware of trip hazard Patient Tobacco Use Status: Former Tobacco user Tobacco use type: Cigarette Cigarette Packs Per Day: 1 Cigarettes Per Day: 1 Years Smoked: 40 e-Cigarette/Vaping Use: Never Used Second Hand Smoke Exposure: No Substance Use Type: Marijuana service: No Review of Systems Const All systems reviewed & are unremarkable except as noted in HPI and below Reports no additional complaints ENT Reports Normal hearing present Card Denies chest pain, Denies chest pain at rest, Denies chest pain with activity and Denies pedal edema Resp Denies cough GI Denies abdominal pain Musc Denies abnormal gait, Denies muscle cramps and Denies radiating pain into limb Skin/Breast Denies skin ulcer and Denies wounds Neuro Reports Normal hearing present and Denies abnormal gait Psych Reports no additional complaints Physical Exam Vital Signs: BMI result Body Mass Index 22.7 Const General: cooperative, healthy appearing and comfortable Orientation/consciousness: oriented to person, oriented to place and oriented to time HEENT Head: Yes normal to inspection Neck Neck: Yes normal visual inspection Carotids: no bruits Chest Chest palpation & inspection: normal inspection of the chest Resp Effort & Inspection: normal respiratory effort and able to speak in complete sentences Auscultation: clear to auscultation bilaterally, no crackles, no rales, no rhonchi and no wheezes Cardio Rate: regular rate Rhythm: regular rhythm Heart sounds: S1 normal heart sound present and S2 normal heart sound present Bruits: no carotid bruits Peripheral pulses: Peripheral pulses 2+ throughout GI Inspection: Yes normal to inspection Skin Wounds: no wounds Hair: normal Neuro General: oriented to person, oriented to place and oriented to time Cranial nerves: Yes CN's II-XII intact bilaterally and Yes Normal hearing present Cognition (Neuro): normal cognition Motor exam (neuro): 5/5 motor strength present throughout Extrem Other: venous exam: No significant superficial varicosities or spider telangiectasias, minimal edema General: No clubbing, No cyanosis and No edema Psych Appearance: grossly normal Mental Status: mental status grossly normal Speech and movement: Normal speech and movement present Results Reviewed Results Reviewed: Ultrasound dated 01/22/2024 patent aortobifem bypass Assessment & Plan Assessment & Plan (1) Aortoiliac occlusive disease: Comment: 03/25/2024 - open aortobifem bypass Code(s): I74.09 - Other arterial embolism and thrombosis of abdominal aorta Category: Medical Plan: Stable aortobifem bypass. The patient has done extremely well since his surgery in March. He has stopped smoking and appears to have gotten his medical issues more addressed. I did congratulate him on this. We did discuss his ultrasound results which was stable. We did discuss the importance of ambulation and exercise. He will follow up with us in approximately 1 year's time for ultrasound surveillance. Thank you for allowing us to assist in his care. Orders: Orders US abdominal aortic aneurysm 1 Year I74.09 - Other arterial embolism and thrombosis of abdominal aorta Coding Level of Care Code Est Pt Level 4 (00488) Diagnoses Aortoiliac occlusive disease I74.09
== END 2025-01-21 09:39 | disposition home or self-care (01) ==
LOC: HO.HVS 08:42
PROVIDERS: PCP Family Medicine; Visit Provider Surgery Vascular Surgery
DX: I74.09 Other arterial embolism and thrombosis of abdominal aorta (principal)
CPT/HCPCS: 99214

== ENCOUNTER 2025-02-04 07:16 | Day surgery (SDC) | payer OTHER, SELFPAY ==
--- OUTSIDE RECORDS SUMMARY | 2025-01-07 17:34 | XMS_ITS | Clinical Summary ---
Author Organization [employer] Address [address] [facility] 7t [place] [address] Care Team Providers Care Relations Coordinator Name Role Phone Jaja Garcia MD Primary Care Provider [phone] Allergies Active Allergy Reactions Criticality Noted Date Comments Bee Venom Hives 10/20/2005 Stung by 100+ bees at one time as a child - had severe edema. Never had any issues with bee stings since Codeine 08/23/2017 vomiting Medications acetaminophen (Tylenol) 500 MG tablet Take 100 mg by mouth. Active tiotropium (Spiriva HandiHaler) 18 MCG inhalation capsuleIndicat ions:Obstructi ve lung disease (CMS/HCC) ([facility]) Place 1 capsule (18 mcg) into [...] MCG/ACT inhalerIndicat ions:Obstructi ve lung disease (CMS/HCC) ([facility]) INHALE 2 PUFFS BY MOUTH EVERY [...] 9:50 AM EDT): Reports prior hx of [place], no records. Chronic SALDIVAR/SOB, hx of heavy [...] Type Department Care Team Description 12/08/2024 Refill [facility] CHC MED & PEDS [address] [place] [address] Jaja Garcia MD from Last 3 Months [...] is your housing situation today? I have ekke melissa 12/27/[address] you [...] Depression Screening 01/04/2025 01/05/2024, 01/05/2024 Tobacco Screening 02/08/2025 02/09/2024 FOBT 02/27/2025 02/28/2024 Colorectal Cancer Screening 02/27/2027 [...] Positive( A) Negative 03/10/2024 9:39 AM EST [facility] (CLIA #:[id number]) Comment: POSITIVE TEST RESULT. A positive Cologuard [...] Byrd et al, N Engl J Med 2014;370(14):1256-8809.) Cologuard may produce a false negative or false positive result (no colorectal cancer or precancerous polyp present at colonoscopy follow up). A negative Cologuard test result does not guarantee the absence of CRC or advanced adenoma (pre-cancer). The current Cologuard screening interval is every 3 years. ([place] Cancer Society and U.S. Multi-Society Task Force). Cologuard performance data in a 10,000 patient pivotal study using colonoscopy as the reference method can be accessed at the following location: www.International Network [employer] Outcomes Research(INOR).Apriva/results. Additional description of the Cologuard test process, warnings and precautions can be found at www.Touchotelog[employer] Inc.rd.com. Stool specimen (specimen) 02/28/2024 2:45 PM EST 02/29/2024 10:46 AM EST us Jaja Garcia MD LAB MOLECULAR DIAGNOSTICS ORD ERABLES Final Result [facility] (CLIA #:[id number]) [place] [address], * (ABNORMAL) Lipid Panel, Standard (01/05/2024 2:50 PM EDT) Triglycerides 85 <150 mg/dL [facility] Comment:Desirable Triglyceri de: less than 150 mg/dLBorderline High Triglyceride 150-199 mg/dLHigh Triglyceride: 200-499 mg/dLVery High Triglyceride: greater than or equal to 5OO mg/dL Cholesterol 139 <200 mg/dL [facility] Comment:Desirable Cholestero l: less than 200 mg/dLBorderline High Cholesterol: 200-239 mg/dLHigh Cholesterol: greater than 239 mg/dL LDL Cholesterol Calculated 83 <100 mg/dL [facility] Comment:Desirable LDL: less than 100 mg/dLNear Optimal/Above Optimal LDL: 110- 129 mg/dLBorderline High LDL: 130-159 mg/dLHigh LDL: 160-189 mg/dLVery High LDL: greater than or equal to 190 mg/dL HDL Cholesterol 39(L) >40 mg/dL [facility] Comment:Desirable HDL: great er than 40 mg/dL Note: This HDL assay may give artificially low results in patients with liver disease. Blood Venous blood specimen / Unknown 01/05/2024 2:50 PM EDT 01/05/2024 5:19 PM EDT us Jaja Garcia MD LAB BLOOD ORDERABLES Final Re sult [facility] [address] [place] [phone] from Last 3 Months or Most Recently Relevant to Health Maintenance Insurance [employer]ARE Care Teams Relations Coordinator Relationship Specialty Start Date End Date Jaja Garcia MD [address] [place] [phone] PCP - General Family Medicine 01/05/24 Donell Ryan M.D. Consulting Physician Orthopaedic Surgery 01/05/24 [facility] 04/02/24
--- OUTSIDE RECORDS SUMMARY | 2025-01-07 17:34 | XMS_ITS | Encounter Summary ---
Author Organization [employer] Address 75 [facility] 7t [place] [address] Care Team Providers Care Alarm Service Technician Name Role Phone Jaja Garcia MD Primary Care Provider [phone] Reason for Visit * Reason Onset Date Comments Created In Error 02/08/2024 Encounter Details Date Type Department Care Team ([facility] st Contact Info) Description 02/08/2024 Telephone [facility] MEDICINE [address] [place] [address] Jaja Garcia MD [address] [place] [address] Created In Error Social History Tobacco Use [...] documented as of this encounter Care Teams Alarm Service Technician Relationship Specialty Start Date End Date Jaja Garcia MD [address] [place] [phone] PCP - General Family Medicine 01/05/24 Donell Ryan M.D. Consulting Physician Orthopaedic Surgery 01/05/24 [facility] 04/02/24 documented as of this encounter
--- OUTSIDE RECORDS SUMMARY | 2025-01-07 17:34 | XMS_ITS | Clinical Summary ---
Author Organization [address] [place] [address] Address [address] [place] [address] Phone Care Team Providers Care Squeegee Operator Name Role Phone Physician, No Pcp [...] Comments OTHER SURGICAL HISTORY 2004 Right PROCEDURE: [place] UNLISTED PROCEDURE LEG/ANKLE; COMMENT: tib/fib compound fracture with metal marimar, pins - [facility] trauma (Dr. Verdin) TONSILLECTOMY PROCEDURE: HISTORICAL [...] Years (1 of 2 - PCV) 11/04/1983 RSV Immunization Adult Patients (1 - Risk 50-74 years 1-dose series) 2014 HIV Screening 10/17/2023 Lung Cancer Screening (Low Dose CT) 10/17/2023 Social Influencers of Health Screening 10/17/2023 Depression Screening 03/20/2024 COVID-19 Vaccine (4 - 2024-2 6 season) [...] Maintenance Insurance [facility] Care Teams Squeegee Operator Relationship Specialty Start Date End Date Physician, No Pcp PCP - General 02/14/24
--- OUTSIDE RECORDS SUMMARY | 2025-01-07 17:34 | XMS_ITS | Encounter Summary ---
Author Organization [employer] Address 75 [facility] 7t [place] [address] Care Team Providers Care Premises Technician Name Role Phone Jaja Garcia MD Primary Care Provider Reason for Visit * Reason Comments Med Refill Encounter Details Date Type Department Care Team ([facility] st Contact Info) Description 07/03/[address] [facility] CHC MED & PEDS [address] [place], [place] [phone] Jaja Garcia MD [address] [place] [address] Social History Tobacco Use Types Packs/Day Years [...] documented as of this encounter Care Teams Premises Technician Relationship Specialty Start Date End Date Jaja Garcia MD [address] [place] [phone] PCP - General Family Medicine 01/05/24 Donell Ryan M.D. Consulting Physician Orthopaedic Surgery 01/05/24 [facility] 04/02/24 documented as of this encounter
--- NOTE | 2025-01-31 13:17 | HO.ANESPROP2 ---
Documented by User: Annie Jones NP 01/31/25 13:21 HPI - Anesthesia Eval Consult details Narrative: 59 yr old male for colonoscopy s/p aortoiliac femoral bypass 03/2024 with GA COPD: follows [facility] pulmo, stable at Dec 2024 visit, no longer smoking cigarettes, ?marijuana use (per social hx). [facility] Active Problems Active Problems: All Active Problems Personal history of tobacco use (Acute) Chronic cough (Acute) Lung consolidation (Acute) Preoperative cardiovascular examination (Acute) Dyspnea (Acute) Encounter for preoperative pulmonary examination (Acute) COPD (chronic obstructive pulmonary disease) (Chronic) Nicotine dependence, cigarettes, uncomplicated (Chronic) Aortoiliac occlusive disease (Chronic) PAD (peripheral artery disease) (Chronic) Past Medical History Medical History Aortoiliac occlusive disease PAD (peripheral artery disease) Smoker COPD (chronic obstructive pulmonary disease) Pulmonary nodules History of femoral angiogram (02/07/24) Hx: bad fall (~2021) HLD (hyperlipidemia) Heart attack (~2017) Family History Family History Mother History of quadruple bypass Father Aneurysm Family history of problems with anesthesia: No Surgical History Surgical History Hx of aorto-femoral bypass Hx of myringotomy Hx of tonsillectomy History of surgery on lower extremity (~2003) H/O tooth extraction History of Problems with Anesthesia: No Social History Social History Household Members: None Housing: House Are you a primary childcare attendant to a significant other at home: No Do you presently have visiting nurse or other home services: No Alcohol intake: current Alcohol intake frequency: a few times a week Alcohol type: beer Comment: aware of trip hazard Patient Tobacco Use Status: Former Tobacco user Tobacco use type: Cigarette Cigarette Packs Per Day: 1 Cigarettes Per Day: 1 Years Smoked: 40 e-Cigarette/Vaping Use: Never Used Second Hand Smoke Exposure: No Substance Use Type: Marijuana Advance Directives: No Advance Directives Information Provided: Yes service: No Meds Allergies Allergy/AdvReac Type Severity Reaction Status Date / Time bee venom protein (honey bee) Allergy Severe Anaphylaxis Verified 01/21/25 09:05 codeine AdvReac Mild Vomiting Verified 01/21/25 09:05 Home Medications ?Medication ?Instructions ?Recorded ?Confirmed ?Last Taken ?Type aspirin 81 mg chewable tablet 1 tab PO DAILY 01/23/24 01/31/25 03/22/24 History meloxicam 15 mg tablet 15 mg PO DAILY PRN Pain 01/23/24 01/31/25 03/25/24 04:30 History acetaminophen 500 mg tablet 500 mg PO Q6H PRN Pain 03/14/24 01/31/25 Unknown History rosuvastatin 40 mg tablet 40 mg PO DAILY 07/10/24 01/31/25 Unknown History Assessment and Plan Final Anesthetic Review Family History of Problems with Anesthesia: No History of Problems with Anesthesia: No Documented by User: Alejandra Sumner MD 02/04/25 08:03 [facility] Past Medical History Medical History Aortoiliac occlusive disease PAD (peripheral artery disease) Smoker COPD (chronic obstructive pulmonary disease) Pulmonary nodules History of femoral angiogram (02/07/24) Hx: bad fall (~2021) HLD (hyperlipidemia) Heart attack (~2017) Family History Family History Mother History of quadruple bypass Father Aneurysm Surgical History Surgical History Hx of aorto-femoral bypass Hx of myringotomy Hx of tonsillectomy History of surgery on lower extremity (~2003) H/O tooth extraction Social History Social History Household Members: None Housing: House Are you a primary childcare attendant to a significant other at home: No Do you presently have visiting nurse or other home services: No Alcohol intake: current Alcohol intake frequency: a few times a week Alcohol type: beer Comment: aware of trip hazard Patient Tobacco Use Status: Former Tobacco user Tobacco use type: Cigarette Cigarette Packs Per Day: 1 Cigarettes Per Day: 1 Years Smoked: 40 e-Cigarette/Vaping Use: Never Used Second Hand Smoke Exposure: No Substance Use Type: Marijuana Advance Directives: No Advance Directives Information Provided: Yes service: No Meds Allergies Allergy/AdvReac Type Severity Reaction Status Date / Time bee venom protein (honey bee) Allergy Severe Anaphylaxis Verified 01/21/25 09:05 codeine AdvReac Mild Vomiting Verified 01/21/25 09:05 Home Medications ?Medication ?Instructions ?Recorded ?Confirmed ?Last Taken ?Type aspirin 81 mg chewable tablet 1 tab PO DAILY 01/23/24 01/31/25 03/22/24 History meloxicam 15 mg tablet 15 mg PO DAILY PRN Pain 01/23/24 01/31/25 03/25/24 04:30 History acetaminophen 500 mg tablet 500 mg PO Q6H PRN Pain 03/14/24 01/31/25 Unknown History rosuvastatin 40 mg tablet 40 mg PO DAILY 07/10/24 01/31/25 Unknown History Exam Airway Mallampati Class: III TM Dist: >3cm Neck ROM: Full Heart: rrr Lungs: cta Assessment and Plan Assessment Anesthesia Assessment: Anesthesia Plan Discussed and Chart Reviewed Final Anesthetic Review NPO: Yes ASA Class: III Final Preanesthetic Review: No Changes in Pt Med Stat, Meds/Allgs Chart Reviewed, Consent Obtained/Reviewed and Anes Risks/Benef Reviewed Patient Risk: Intermediate Procedure Risk: Low Anesthetic Plan Anesthetic Plan: MAC: and Agree w/ Assess. and Plan Disposition: Standard PACU
[2025-01-31 14:22] VITALS: BMI 22.2
[2025-02-04 08:07] VITALS: BMI 22.4
[2025-02-04 08:11] VITALS: BP 136/86; PULSE 98; RESP 16; TEMP 36.1; O2SAT 98
[2025-02-04] MEDS: Lactated Ringers 1,000 ML 100 ML IVCONT (08:33)
--- NOTE | 2025-02-04 09:19 | P.HPSUR_ITS ---
Pre-Procedural Eval Section A - 24 Hr Update-Section A only Date of Service: 02/04/25 Section B - Complete if H&P > 30 days Chief Complaint: Other fecal abnormalities,screening Relevant Family History (Specify if Yes): No Relevant Social History: Tobacco Use Present Medications: see Short Stay Collaborative assessment Medical History: Significant History (Aortoiliac occlusive disease PAD (peripheral artery disease) Smoker COPD (chronic obstructive pulmonary disease) Pulmonary nodules History of femoral angiogram (02/07/24) Hx: bad fall (~2021) HLD (hyperlipidemia) Heart attack (~2017)) History of Previous Operations: Relevant previous surgery/procedure and date(s) (Hx of aorto-femoral bypass Hx of myringotomy Hx of tonsillectomy History of surgery on lower extremity (~2003) H/O tooth extraction) Allergies: Allergies Allergy/AdvReac Type Severity Reaction Status Date / Time bee venom protein (honey bee) Allergy Severe Anaphylaxis Verified 02/04/25 08:10 codeine AdvReac Mild Vomiting Verified 02/04/25 08:10 Review of Systems Sugical H&P ROS: Negative: Constitution, Cardiovascular, Respiratory, Neurological, Psychiatric, Hem-Onc, Allergic/Immunologic, Gastrointestinal, Genitourinary, Musculoskeletal, Integumentary, Endocrine and Eyes/Ears/No se/Throat Exam Surgical H&P Exam: Normal: HEENT, Normal: Heart, Normal: Lungs, Normal: Extremities, Normal: Abdomen, Normal: Skin and Normal: Neurological Plan Diagnosis/Plan: Unchanged I have reviewed the history and physical and performed a pertinent physical examination on my patient. No changes have occurred unless specified. Time Spent With Patient Time: Total time managing care of this patient today ____ minutes.
--- NOTE | 2025-02-04 10:10 | HO.OPN-COLON ---
Colonoscopy Operative Note Operative Note Date of Service: 02/04/25 Narrative: Operative Information Procedure Description: Colonoscopy Indication: pos cologuard Anesthesia: MAC COLONOSCOPY Instrument: Olympus variable stiffness pediatric scope 190L Colonoscopy Monitoring: Vital signs and clinical assessment, continuous EKG monitoring, Pulse oximetry, Carbon Dioxide monitoring and blood pressure monitoring were done throughout the procedure. Colon withdrawal time was 30 minutes. Procedure: The patient was placed in the left lateral decubitis position and pre-procedure medications were administered. After a digital rectal examination of the ano-rectum, the video colonoscope was inserted into the rectum and advanced through the colon to the cecum/TI. The colonoscope was slowly withdrawn in a retrograde panoramic fashion and the colon mucosa was carefully examined including a retroflexed view of the rectum. Findings and interventions are described below. Procedure Difficulty: easy Findings: Terminal Ileum-normal Cecum: 4-5 mm sessile polyp removed with cold forceps Ascending Colon: moderate diverticulosis Transverse Colon -normal Descending Colon: x 2 sessile polyps one was 5 mm and the other 10 mm, lifted with eleview and then both removed with cold snare. x 2 clips applied for hemostasis. Sigmoid Colon: moderate diverticulosis, 14-15 mm pedunculated polyp injected with few ml of epinephrine and then removed with hot snare with one clip applied for hemostasis Rectum: Retroflexion with small internal hemorrhoids seen, grade I Anorectum - normal Intervention: cold snare with epinephrine, eleview injections, clips, cold forceps Colon preparation: [place] Bowel Preparation Scale Right colon; 2 Transverse colon: 2 Left colon; 2 (0 = Unprepared colon segment with mucosa not seen due to solid stool that cannot be cleared. 1 = Portion of mucosa of the colon segment seen, but other areas of the colon segment not well seen due to staining, residual stool and/or opaque liquid. 2 = Minor amount of residual staining, small fragments of stool and/or opaque liquid, but mucosa of colon segment seen well. 3 = Entire mucosa of colon segment seen well with no residual staining, small fragments of stool or opaque liquid) Impression and Post Procedure Diagnosis: diverticulosis colon polyps x4 internal hemorrhoids Plan: High fiber diet leaflet Avoid straining at stool, epsom salts and sitz bath, anusol supps or cream Repeat Colonoscopy in 2-3 years due to polyps or earlier if clinically indicated Above findings were reviewed with the patient and relevant handouts were provided if indicated.
[2025-02-04 10:15] VITALS: BP 115/76; PULSE 85; RESP 12; TEMP 36.1; O2SAT 97
[2025-02-04 10:30] VITALS: BP 150/88; PULSE 77; RESP 16; TEMP 36.7; O2SAT 97
== END 2025-02-04 11:02 | disposition home or self-care (01) ==
PROVIDERS: PCP Family Medicine; Visit Provider Internal Medicine Gastroenterology
PROC: 0DJD8ZZ Inspection of Lower Intestinal Tract, Via Natural or Artificial Opening Endoscopic (ICD-10-PCS; CPT 45378; principal; 2025-02-04 09:10)
DX: R19.5 Other fecal abnormalities (principal); Z12.11 Encounter for screening for malignant neoplasm of colon; K57.30 Diverticulosis of large intestine without perforation or abscess without bleeding; K64.0 First degree hemorrhoids; D37.4 Neoplasm of uncertain behavior of colon; D12.4 Benign neoplasm of descending colon; K63.5 Polyp of colon
CPT/HCPCS: 45380; 45385; 45381; 88305; J0168; J2003; J2704

== ENCOUNTER → 2025-02-04 07:16 | Outpatient (BNV) | payer OTHER, SELFPAY | PROVIDERS: PCP Family Medicine; Visit Provider Internal Medicine Gastroenterology | DX: Z12.11 Encounter for screening for malignant neoplasm of colon (principal); R19.5 Other fecal abnormalities; D12.0 Benign neoplasm of cecum; K57.90 Diverticulosis of intestine, part unspecified, without perforation or abscess without bleeding; K64.0 First degree hemorrhoids; D12.4 Benign neoplasm of descending colon; D12.5 Benign neoplasm of sigmoid colon | CPT/HCPCS: 45380; 45385 ==

== ENCOUNTER 2025-03-17 09:46 | Outpatient (REF) | payer OTHER, SELFPAY ==
--- OUTSIDE RECORDS SUMMARY | 2025-03-17 09:00 | XMS_ITS | Encounter Summary ---
Author Organization [email or web address] Address [address] [facility] [address] [place] [address] Care Team Providers Care Crime Lab Technician Name Role Phone Jaja Garcia MD Primary Care Provider [phone] Reason for Referral * Consultation (Routine) - Authorized Specialty Diagnoses / Procedures Referred By Contac t Referred To Contact Dermatology / Family Medicine Diagnoses Jaja Ramesh MD [address] [place] [id number] Phone: tel: fax: Rachel Madsen MD [address] [place] [id number] Phone: tel: fax: Referral ID Status Reason Start Date Expiration Date Visits Requested Visits Authorized [id number] Authorized Consult and Treat 03/17/2025 03/17/2026 1 1 Encounter Details Date Type Department Care Team ([facility] Contact Info) Description 03/17/2025 9:00 AM EST Office Visit [facility] MED & PEDS [address] [place] [address] [phone] Jaja Garcia MD [address] [place] [address] [phone] Rash (Primary Dx); Prediabetes; Change in stool Social History Tobacco Use Types Packs/Day Years Used Date Smoking Tobacco: Former Cigarettes 2 41 0 03/20/1983 - 03/25/2024 Passive Smoke Exposure: Never Smokeless Tobacco: Never Alcohol Use Standard Drinks/Week Comments Yes 6 [...] AM EDT documented as of this encounter Last Filed Vital Signs Vital Sign Reading Time Taken Comments Blood Pressure 144/90 03/17/2025 8:54 AM EST Pulse 78 03/17/2025 8:54 AM EST Temperature 36.6 C (97.8 F) 03/17/2025 8:54 AM EST Respiratory Rate 20 03/17/2025 8:54 AM EST Oxygen Saturation 98% 03/17/2025 8:54 AM EST Inhaled Oxygen Concentration - - Weight 73.1 kg (161 lb 3.2 oz) 03/17/2025 8:54 A M EST Height 176 cm (5' 9.29 ) 03/17/2025 8:54 AM EST Body Mass Index 23.61 03/17/2025 8:54 AM EST documented in this encounter Plan of Treatment Upcoming Encounters Date Type Department Care Team (Late st Contact Info) Description 04/21/2025 9:00 AM EST Office Visit [facility] MED & PEDS [address] [place] [address] Jaja Garcia MD [address] [place] [address] Scheduled Orders Name Type Priority Associated Diagnoses Orde r Schedule CBC auto differential Lab Routine Prediabetes Expected: 03/17/2025 (Approximate), Expires: 03/17/2026 Comprehensive Metabolic Panel Lab Routine Prediabetes Expected: 03/17/2025 (Approximate), Expires: 03/17/2026 Lipid Panel, Standard Lab Routine Prediabetes Expected: 03/17/2025 (Approximate), Expires: 03/17/2026 Magnesium Lab Routine Prediabetes Expected: 03/17/2025, Expires: 03/17/2026 Vitamin B12 (Cobalamin) and Folate Panel, Serum Lab Routine Prediabetes Expected: 03/17/2025 (Approximate), Expires: 03/17/2026 Hemoglobin A1c Lab Routine Prediabetes Expected: 03/17/2025 (Approximate), Expires: 03/17/2026 Celiac Disease Comprehensive Panel Lab Routine Change in stool Expected: 03/17/2025, Expires: 03/17/2026 Calprotectin, Stool Lab Routine Change in stool Expected: 03/17/2025, Expires: 03/17/2026 Fecal Fat, Qualitative Lab Routine Change in stool Expected: 03/17/2025 (Approximate), Expires: 03/17/2026 Vitamin A Lab Routine Change in stool Expected: 03/17/2025 (Approximate), Expires: 03/17/2026 Vitamin D, 25-Hydroxy, Total, Immunoassay Lab Routine Change in stool Expected: 03/17/2025 (Approximate), Expires: 03/17/2026 MRSA Nasal Screen Microbiology Routine Rash Expected: 03/17/2025 (Approximate), Expires: 03/17/2026 Scheduled Referrals Name Type Priority Associated Diagnoses Orde r Schedule Referral to [facility] Derm Skin Outpatient Referral Routine Rash Expected: 03/17/2025 (Approximate), Expires: 03/17/2026 documented as of this encounter Visit Diagnoses Diagnosis Rash- Primary Rash and other nonspecific skin eruption Prediabetes Other abnormal glucose Change in stool documented in this encounter Additional Health Concerns Assessment Noted Time PHQ-9 Depression Total Score: 0 01/05/20 24 1:18 PM EDT documented as of this encounter Care Teams Crime Lab Technician Relationship Specialty Start Date End Date Jaja Garcia MD [address] [place] [phone] PCP - General Family Medicine 01/05/24 Donell Ryan M.D. Consulting Physician Orthopaedic Surgery 01/05/24 [facility] 04/02/24 Sis Paul PUBLIC HEALTH ANALYST Nurse Practitioner Pulmonary Disease 03/17/25 Everton Sierra MD Consulting Physician Vascular Surgery 03/20/24 documented as of this encounter
--- OUTSIDE RECORDS SUMMARY | 2025-03-17 10:28 | XMS_ITS | Encounter Summary ---
Author Organization [email or web address] Address [address] [facility] [address] [place] [address] Care Team Providers Care Hot Water Heater Installer Name Role Phone Jaja Garcia MD Primary Care Provider [phone] Reason for Visit * Reason Comments Med Refill Encounter Details Date Type Department Care Team ([facility] st Contact Info) Description 07/03/2024 Refill [facility] CH[facility] MED & PEDS [address] [place], [place] [phone] Jaja Garcia MD [address] [place] [address] Social History Tobacco Use Types Packs/Day Years Used Date Smoking Tobacco: Every Day Cigarettes 2 42 Started: 03/20/1983 Alcohol Use Standard Drinks/Week Comments [...] as of this encounter Plan of Treatment Upcoming Encounters Date Type Department Care Team (Late st Contact Info) Description 04/21/2025 9:00 AM EST Office Visit [facility] MED & PEDS [address] [place] [address] Jaja Garcia MD [address] [place] [address] documented as of this encounter Visit Diagnoses Not on filedocumented in this encounter Additional Health Concerns Assessment Noted Time PHQ-9 Depression Total Score: 0 01/05/20 24 1:18 PM EDT documented as of this encounter Care Teams Hot Water Heater Installer Relationship Specialty Start Date End Date Jaja Garcia MD [address] [place] [phone] PCP - General Family Medicine 01/05/24 Donell Ryan M.D. Consulting Physician Orthopaedic Surgery 01/05/24 [facility] 04/02/24 Sis Paul ABSORPTION AND ADSORPTION ENGINEER Nurse Practitioner Pulmonary Disease 03/17/25 Everton Sierra MD Consulting Physician Vascular Surgery 03/20/24 documented as of this encounter
--- OUTSIDE RECORDS SUMMARY | 2025-03-17 10:28 | XMS_ITS | Encounter Summary ---
Author Organization [email or web address] Address [address] [facility] [address] [place] [address] Care Team Providers Care Combat Systems Officer Name Role Phone Jaja Garcia MD Primary Care Provider [phone] Encounter Details Date Type Department Care Team (Latest Contact Info) Description 03/17/2025 Travel Social History Tobacco Use Types Packs/Day Years [...] Description 04/21/2025 9:00 AM EST Office Visit [facility] MED & PEDS [address] [place] [address] Jaja Gracia MD [address] [place] [address] documented as of this encounter Visit Diagnoses Not on filedocumented in this encounter Additional Health Concerns Assessment Noted Time PHQ-9 Depression Total Score: 0 01/05/20 24 1:18 PM EDT documented as of this encounter Care Teams Combat Systems Officer Relationship Specialty Start Date End Date Jaja Garcia MD [address] [place] [address] PCP - General Family Medicine 01/05/24 Donell Ryan M.D. Consulting Physician Orthopaedic Surgery 01/05/24 [facility] 04/02/24 Sis Paul IT DATA ARCHITECT Nurse Practitioner Pulmonary Disease 03/17/25 Everton Sierra MD Consulting Physician Vascular Surgery 03/20/24 documented as of this encounter
--- OUTSIDE RECORDS SUMMARY | 2025-03-17 10:28 | XMS_ITS | Encounter Summary ---
Author Organization [employer] Address [address] [facility] [address] [place] [address] Care Team Providers Care Microfabrication Engineer Manager Name Role Phone Jaja Garcia MD Primary Care Provider [phone] Reason for Visit * Reason Onset Date Comments Created In Error 02/08/2024 Encounter Details Date Type Department Care Team ([facility] st Contact Info) Description 02/08/[address] [facility] MEDICINE [address] [place] [address] Jaja Garcia MD [address] [place] [address] Created In Error Social History Tobacco Use [...] Description 04/21/2025 9:00 AM EST Office Visit [facility] MED [facility] PEDS [address] [place] [address] Jaja Garcia MD [address] [place] [address] documented as of this encounter Visit Diagnoses Not on filedocumented in this encounter Additional Health Concerns Assessment Noted Time PHQ-9 Depression Total Score: 0 01/05/20 24 1:18 PM EDT documented as of this encounter Care Teams Microfabrication Engineer Manager Relationship Specialty Start Date End Date Jaja Garcia MD [address] [place] [phone] PCP - General Family Medicine 01/05/24 Donell Ryan M.D. Consulting Physician Orthopaedic Surgery 01/05/24 [facility] 04/02/24 Sis Paul WEBSPHERE PORTAL DEVELOPER Nurse Practitioner Pulmonary Disease 03/17/25 Everton Sierra MD Consulting Physician Vascular Surgery 03/20/24 documented as of this encounter
--- OUTSIDE RECORDS SUMMARY | 2025-03-17 10:28 | XMS_ITS | Clinical Summary ---
Author Organization [employer] Address [address] [facility] [address] [place] [address] Care Team Providers Care Md Physician Dermatologist Name Role Phone Jaja Garcia MD Primary Care Provider [phone] Allergies Active Allergy Reactions Criticality Noted Date Comments Bee Venom Hives,Anaphylaxis,Other High 10/20/2005 Stung by 100+ bees at one time as a child - had severe edema. Never had any issues with bee stings since Codeine Vomiting Low 08/23/2017 vomiting Medications acetaminophen (Tylenol) 500 MG tablet Take 100 mg by mouth. Active meloxicam (Mobic) 15 MG tablet Take 1 tablet (15 mg) by mouth Once per day. 60 tablet 1 02/09/20 24 Active albuterol 108 (90 Base) MCG/ACT inhalerIndicat ions:Obstructi ve lung disease (CMS/HCC) ([facility]) INHALE 2 PUFFS BY MOUTH EVERY 4 HOURS NEEDED FOR WHEEZE 18 g 2 08/21/19 25 Active Aspirin Low Dose 81 MG chewable tablet CHEW 1 TABLET (81 MG) ONCE PER DAY. 90 tablet 3 12/10/19 25 Active rosuvastatin (Crestor) 40 MG tablet TAKE 1 TABLET BY MOUTH ONCE DAILY 90 tablet 1 01/17/20 25 Active Breo Ellipta 200-25 MCG/ACT aerosol powder Inhale 1 puff Once per day. 02/28/20 25 Active benzoyl peroxide 5 % gel Apply topically 2 times daily. 60 g 2 03/17/20 25 026 Active Blood Pressure kit 1 Units Once per day. 1 kit 03/17/20 25 Active Spiriva HandiHaler [address] 1 capsule into inhaler and inhale Once per day. 30 capsule 3 03/17/20 25 Active tiotropium (Spiriva HandiHaler) 18 MCG inhalation capsuleIndicat ions:Obstructi ve lung disease (CMS/HCC) ([facility]) Place 1 capsule (18 mcg) into inhaler and inhale in the morning. 30 capsule 11 02/09/20 24 025 Discontinued Spiriva HandiHaler 18 MCG capsule 01/31/20 25 025 Discontinued(Re order (will not trigger notification to Pharmacy)) Active Problems Problem Noted Date Diagnosed Date Aortoiliac occlusive disease (CMS/HCC) Overview (03/17/2025): 03/25/2024 - open aortobifem bypass COPD (chronic obstructive pulmonary disease) Lung consolidation 03/17/2025 Nicotine dependence, cigarettes, uncomplicated 1 Arthralgia of hip 01/05/2024 Prediabetes 01/05/2024 Upper gastrointestinal hemorrhage 01/05/2024 Hyperpigmented skin lesion 01/05/2024 PAD (peripheral artery disease) 11/26/2017 Overview (01/05/2024): LE arterial duplex [...] tib/fib fracture & repair Anxiety state 11/15/2005 Personal history of tobacco use 11/15/2005 Resolved Problems Problem Noted Date Diagnosed Date Resolved Date Atypical chest pain 01/05/2024 01/05/20 Injury of kidney 01/05/2024 03/17/2025 Shortness of breath on exertion 01/05/2024 03/17/2025 Assessment & Plan (01/09/2024 9:50 AM EDT): Reports prior hx of [place], no records. Chronic SALDIVAR/SOB, hx of heavy smoker, ddx COPD vs HF vs other. Will send testing. Screening for lung cancer 01/05/2024 Dyspnea 06/05/2018 03/17/2025 Overview (01/05/2024): Nuclear stress test(05/29/18): technically difficult [...] size and systolic function with LVEF 50% Encounters Date Type Department Care Team Description 03/17/2025 9:00 AM EST Office Visit [facility] PED[facility] [address] [place] [address] Jaja Garcia MD Rash (Primary Dx); Prediabetes; Change in stool 03/17/2025 Travel 03/11/2025 Telephone [facility] [address] [place] [address] Jaja Garcia MD chart prep 03/10/2025 Travel 03/04/2025 Patient Outreach [facility] MEDICINE [address] [place] [address] Jaja Garcia MD Pre-visit Planning (Pre-visit planning - LVM ) 02/05/2025 Telephone [facility] MED [facility] PED[facility] [address] [place] [address] Jaja Garcia MD 02/04/2025 Orders Only GENERIC EXTERNAL DATA DEPARTMENT Provider, Generic External Data 01/21/2025 Orders Only [facility] External Provider, [facility] 01/16/2025 Refill [facility] PED[facility] [address] [place] [address] Jaja Garcia MD from Last 3 Months [...] is your housing situation today? I have kekedani melissa 12/27/[address] you [...] Mass Index 23.61 03/17/2025 8:54 AM EST Plan of Treatment Upcoming Encounters Date Type Department Care Team (Late st Contact Info) Description 04/21/2025 9:00 AM EST Office Visit [facility] MED & PEDS [address] [place] [address] Jaja Garcia MD [address] [place] [address] Health Maintenance Due Date Last Done Comments CT Colonography 1965 Diabetes: Hemoglobin A1C 1965 FIT 1965 HIV Screening 1965 Sigmoidoscopy 1965 Alcohol/Substance Use Screening 1976 Hepatitis C Screening 1982 DTaP/Tdap/Td Vaccines (1 - Tdap) 11/04/1983 Pneumococcal Vaccine: 50+ Years (1 of 2 - PCV) 11/04/1983 Lung Cancer Screening 2014 RSV Patients and Patients Aged 60 years or older (1 - Risk 50-74 years 1-dose series) 2014 Abdominal Aortic Aneurysm (AAA) Screening 07/17/2024 07/12/2024 COVID-19 Vaccine (2024-2 6 season) 2024 03/01/2021, 07/31/2020, 07/10/2020 Influenza Vaccine (#1) 2024 SDOH Screening 12/26/2024 12/27/2023 Depression Screening 01/04/2025 01/05/2024, 01/05/2024 FOBT 02/27/2025 02/28/2024 Disability Screening 03/10/2026 03/10/2025 Tobacco Screening 03/17/2026 03/17/2025 Colonoscopy 02/01/2027 Colorectal Cancer Screening 02/01/2027 FIT DNA/Cologuard 02/27/2027 02/28/2024 Lipid Panel 01/04/2029 [...] Procedure Name Priority Date/Time Associated Diagnosis Comments HEMATOXYLIN AND EOSIN STAIN Routine 02/04/2025 9:39 AM EST US ABDOMINAL AORTIC ANEURYSM Routine 01/21/2025 8:33 PM EST LAB COLOGUARD COLON CANCER SCREEN Routine 02/28/2024 2:45 PM EST Screening for colon cancer LIPID PANEL, STANDARD Routine 01/05/2024 2:50 PM EDT PVD (peripheral vascular disease) (CMS/HCC) from Last 3 Months or Most Recently Relevant to Health Maintenance Results * Hematoxylin and Eosin Stain (02/04/2025 9:39 AM EST) 02/04/2025 9:39 AM EST 02/04/2025 10:21 AM EST [facility] - 02/05/2025 3:45 PM EST ----- ------- Name: Jabier Simpson Age/Sex: 59/M : 1965 Unit#: [id number] Attend Dr: Ben Chandler MD Re02/04/25 Status: [facility] Location: [facility] Disch: ----- ------- SPEC : [id number] RECD: 02/04/25 STATUS: DOMINICK RERomario NUM: [id number] MAHESH: 02/04/25 [facility] DR: Ben Chandler MD ENTERED: 02/04/25 SP TYPE: Surgical OTHR DR: Jaja Garcia MD ORDERED: HE Stain/9, Gross Micro L4/3 Diagnosis A. Colon, cecal polyp: Colonic mucosa with no specific change; no adenomatous dysplasia seen. B. Colon, descending, polyps: Tubular adenomas (3 pieces); negative for high-grade dysplasia and carcinoma. C. Colon, sigmoid, polyp: Tubulovillous adenoma, appears completely excised; negative for high-grade dysplasia and carcinoma. Clinical History Pre-Op Dx: Other fecal abnormalities,screening Post-Op Dx: Colon polyps, diverticulosis, hemorrhoids Microscopic Description Multiple microscopic sections reviewed. Material Received A. Cecal polyp B. Descending colon polyps C. Sigmoid colon polyp Gross Description A. Received in formalin are 3 santillan soft tissue fragments measuring 1-4 mm, totally submitted in cassette A1. B. Received in formalin are multiple santillan soft tissue fragments measuring 1-5 mm, totally submitted in cassette B1. C. Received in formalin is 1 santillan-red polyp measuring 10 x 17 mm, inked blue at the margin and trisected, totally submitted in cassette C1. (OWR) IHC S/NG Disclaimer NOTE: Unless otherwise stated, all tissue is formalin-fixed and paraffin-embedded. Some or all of the immunohistochemical tests reported herein may have been developed and their performance characteristics determined by [facility]. They have not been cleared or approved by the U.S. Food and Drug Administration (FDA). However, the FDA has determined that such clearance or approval is not necessary. This laboratory is certified under the Clinical Laboratory Improvement Amendments of 1988 (CLIA) as qualified to perform high complexity clinical laboratory testing. CONTINUED ON NEXT PAGE ----- ------- Name: Jabier Simpson Age/Sex: 59/M : 1965 Unit#: [id number] Attend Dr: Ben Chandler MD Re02/04/25 Status: [facility] Location: [facility] Disch: ----- ------- SPEC : [id number] RECD: 02/04/25 STATUS: DOMINICK MATHEW NUM: [id number] MAHESH: 02/04/25 [facility] DR: Ben Chandler MD ENTERED: 02/04/25 SP TYPE: Surgical OTHR DR: Jaja Garcia MD ORDERED: HE Stain/9, Gross Micro L4/3 Copies To: Ben Chandler MD [facility] [address] [place] [address] [phone] Jaja Garcia MD [address] [phone] ----- ------- Signed (signature on file) Latoya Crane MD 02/05/25 1545 ----- ------- END OF REPORT us Generic External Data Provider LAB BLOOD ORDERAB LES Final Result [facility] [address] [place] [address] [phone] * US ABDOMINAL AORTIC ANEURYSM (01/21/2025 8:33 PM EST) Anatomical Region Laterality Modality Abdomen Ultrasound 01/21/2025 8:33 PM EST Narrative 01/21/2025 8:35 PM EST [address] [address] Ultrasound Report Signed Patient: Jabier Simpson MR#: [id number] : 1965 Acct:[id number] Age/Sex: 59 / M ADM Date: 01/21/25 Loc: HO.US Attending Dr: Concha Rivas PA-C Ordering Physician: Concha Rivas PA-C Date of Service: 01/21/25 Procedure(s): US abdominal aortic aneurysm Accession Number(s): [id number] cc: Concha Rivas PA-C; Jaja Garcia MD Reason for Exam: 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 Please evaluate graft please. Ultrasound abdominal aorta Comparison: 07/10/2024 Findings: Abdominal aorta normal caliber, maximum 2.4 cm. Information states patent bypass graft with plaque. This appears to be an aortic bypass graft, please correlate. Bilateral iliac limbs are patent with normal flow. Anatomic orientation is less than ideal. Heterogeneous soft tissue material at site of palpable lump. This is labeled as suprapubic without laterality. Question hematoma, please correlate. Impression: Patent aortic bypass graft as above Possible hematoma at site of palpable lump This document has been electronically signed by: Elia Moore MD on 01/21/2025 20:33:34 Dictated By: Elia Moore MD Signed By: <Electronically signed by Elia Moore MD in OV> 01/21/252033 DD/ 32 TD/TT: 01/21/252032 Superintendent Quarry: Procedure Note Sahrater, Image - 01/21/[address] [address] Ultrasound Report Signed Patient: Jabier Simpson JMR#: [id number] : 1965Acct:[id number] Age/Sex: 59 / MADM Date: 01/21/25 Loc: HO.US Attending Dr: Concha Rivas PA-C Ordering Physician: Concha Rivas PA-C Date of Service: 01/21/25 Procedure(s): US abdominal aortic aneurysm Accession Number(s): [id number] cc: Concha Rivas PA-C; Jaja Garcia MD Reason for Exam: I74.09 - Other arterial embolism and thrombosis ofabdominal aorta CLINICAL HISTORY: 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 Pleaseevaluate graft please. Ultrasound abdominal aorta Comparison: 07/10/2024 Findings: Abdominal aorta normal caliber, maximum 2.4 cm. Information states patent bypass graft with plaque. This appears to be an aortic bypass graft, please correlate. Bilateral iliac limbs are patent with normal flow. Anatomic orientation is less than ideal. Heterogeneous soft tissue material at site of palpable lump. This is labeled as suprapubic without laterality. Question hematoma, please correlate. Impression: Patent aortic bypass graft as above Possible hematoma at site of palpable lump This document has been electronically signed by: Elia Moore MD on 01/21/2025 20:33:34 Dictated By: Elia Moore MD Signed By: <Electronically signed by Elia Moore MD in OV> 01/21/252033 DD/ 32 TD/TT: 01/21/252032 Superintendent Quarry: [facility] External Provider IMG US PROCEDURES Final Result * (ABNORMAL) Cologuard?? colon cancer screening (02/28/2024 2:45 PM EST) Cologuard Result Positive( A) Negative 03/10/2024 9:39 AM EST [facility] (CLIA #:[id number]) Comment: POSITIVE TEST RESULT. A positive Cologuard [...] Byrd et al, N Engl J Med 2014;370(14):8373-4387.) Cologuard may produce a false negative or false positive result (no colorectal cancer or precancerous polyp present at colonoscopy follow up). A negative Cologuard test result does not guarantee the absence of CRC or advanced adenoma (pre-cancer). The current Cologuard screening interval is every 3 years. ([place] [employer] and U.S. Multi-Society Task Force). Cologuard performance data in a 10,000 patient pivotal study using colonoscopy as the reference method can be accessed at the following location: www.[employer]/results. Additional description of the Cologuard test process, warnings and precautions can be found at www.siOPTICArd.com. Stool specimen (specimen) 02/28/2024 2:45 PM EST 02/29/2024 10:46 AM EST us Jaja Garcia MD LAB MOLECULAR DIAGNOSTICS ORD ERABLES Final Result [facility] (CLIA #:[id number]) [place] [address], * (ABNORMAL) Lipid Panel, Standard (01/05/2024 2:50 PM EDT) Triglycerides 85 <150 mg/dL [facility] Comment:Desirable Triglyceri de: less than 150 mg/dLBorderline High Triglyceride 150-199 mg/dLHigh Triglyceride: 200-499 mg/dLVery High Triglyceride: greater than or equal to 5OO mg/dL Cholesterol 139 <200 mg/dL [facility] Comment:Desirable Cholestero l: less than 200 mg/dLBorderline High Cholesterol: 200-239 mg/dLHigh Cholesterol: greater than 239 mg/dL LDL Cholesterol Calculated 83 <100 mg/dL [facility] Comment:Desirable LDL: less than 100 mg/dLNear Optimal/Above Optimal LDL: 110- 129 mg/dLBorderline High LDL: 130-159 mg/dLHigh LDL: 160-189 mg/dLVery High LDL: greater than or equal to 190 mg/dL HDL Cholesterol 39(L) >40 mg/dL [facility] Comment:Desirable HDL: great er than 40 mg/dL Note: This HDL assay may give artificially low results in patients with liver disease. Blood Venous blood specimen / Unknown 01/05/2024 2:50 PM EDT 01/05/2024 5:19 PM EDT us Jaja Garcia MD LAB BLOOD ORDERABLES Final Re sult [facility] [address] [place] [phone] from Last 3 Months or Most Recently Relevant to Health Maintenance Insurance [facility] [place] [address] Care Teams Md Physician Dermatologist Relationship Specialty Start Date End Date Jaja Garcia MD [address] [place] [phone] PCP - General Family Medicine 01/05/24 Donell Ryan M.D. Consulting Physician Orthopaedic Surgery 01/05/24 [facility] 04/02/24 Sis Paul MANAGER SEMICONDUCTOR Nurse Practitioner Pulmonary Disease 03/17/25 Everton Sierra MD Consulting Physician Vascular Surgery 03/20/24
--- OUTSIDE RECORDS SUMMARY | 2025-03-17 10:28 | XMS_ITS | Clinical Summary ---
Author Organization [address] [place] [address] [place] [phone] Phone Care Team Providers Care Weapons Electrical Engineering Officer Name Role Phone Physician, No Pcp Primary [...] Comments OTHER SURGICAL HISTORY 2004 Right PROCEDURE: [place] UNLISTED PROCEDURE LEG/ANKLE; COMMENT: tib/fib compound fracture with metal [place], pins - [facility] trauma (Dr. Verdin) TONSILLECTOMY PROCEDURE: HISTORICAL [...] on file Sexual Orientation Not on file Last Filed Vital Signs [...] Most Recently Relevant to Health Maintenance Insurance [facility] Care Teams Weapons Electrical Engineering Officer Relationship Specialty Start Date End Date Physician, No Pcp PCP - General 02/14/24
[2025-03-17 14:59] LABS: MANUAL DIFF FLAG NO
[2025-03-17 15:02] LABS: Hematocrit 47.3 % (42.0-52.0); Hemoglobin 15.9 g/dl (14.0-18.0); Imm Gran Abs Auto 0.08 X10*3/uL (0.00-0.03); Imm Gran Pct Auto 1.0 % (0.0-0.4); Lymphocytes Absolute Auto 1.4 X10*3/uL (1.2-4.9); Mean Corpuscular HGB Conc 33.6 g/dl (31.0-36.0); Mean Corpuscular Hemoglobin 32.1 pg (27.0-33.0); Mean Corpuscular Volume 95.6 fL (80.0-98.0); NRBC Abs Auto 0.000 X10*3/uL (0.0-0.012); NRBC Pct Auto 0.0 /100WBC (0.0-0.2); Platelet Count 379 X10*3/uL (160-400); Red Blood Count 4.95 X10*6/uL (4.60-5.80); White Blood Count 7.8 X10*3/uL (4.8-10.8)
[2025-03-17 15:36] LABS: Alanine Aminotransferase 35 U/L (0-40); Albumin Level 3.9 g/dL (3.5-5.0); Alkaline Phosphatase 122 U/L (39-117); Anion Gap 13 (12-20); Aspartate Amino Transferase 54 U/L (5-37); Blood Urea Nitrogen 7 mg/dL (9-16); Calcium 9.1 mg/dL (8.4-10.2); Carbon Dioxide 25 mmol/L (22-29); Chloride 105 mmol/L (96-108); Cholesterol 109 mg/dL (<200); Estimated Glomerular Filt Rate > 60; HDL Cholesterol 59 mg/dL (>40); Magnesium 2.2 mg/dL (1.6-2.6); Potassium 3.7 mmol/L (3.3-5.1); Sodium 139 mmol/L (135-145); Total Protein 7.5 g/dL (6.5-8.0); Triglycerides 52 mg/dL (<150)
[2025-03-17 15:55] LABS: Folate 10.0 ng/mL (> or = 4.0); Vitamin B12 320 pg/mL (200-900)
[2025-03-18 08:51] LABS: MRSA Nasal PCR NEGATIVE (Negative); SA Nasal PCR NEGATIVE (Negative)
[2025-03-18 14:49] LABS: Immunoglobulin A 456 mg/dL (47-310)
== END 2025-03-17 09:47 | disposition home or self-care (01) ==
LOC: HO.CHCLDS 09:46
PROVIDERS: Visit Provider Family Medicine
DX: R73.03 Prediabetes (principal); R19.5 Other fecal abnormalities; R21 Rash and other nonspecific skin eruption; Z13.6 Encounter for screening for cardiovascular disorders; Z13.21 Encounter for screening for nutritional disorder
CPT/HCPCS: 36415; 80053; 80061; 82306; 82607; 82746; 82784; 83036; 83735; 84590; 85025; 86364; 87640; 87641